=== PATIENT | male | born 1975 | race Caucasian/White ===

== ENCOUNTER 2020-02-08 18:02 | Inpatient (IN) | payer BC ==
[2020-02-08] MEDS ORDERED: SODIUM CHLORIDE 0.9% 1000 ML 1,000 ML IV ONE ×2 (18:51→18:55)
[2020-02-08] MEDS ORDERED: PIPERACIL/TAZOBACTA 4.5/NS 100 4.5 GM/100 ML VIAL IV ONE (18:54)
--- NOTE | 2020-02-08 18:55 | Emergency Department Report ---
HPI - General Chief Complaint: Weakness Time Seen by Provider: 02/08/20 18:34 - HPI HPI: Room 2 The patient is a 44-year-old male present with a chief complaint of cough and shortness of breath. Patient states his symptoms began 1 week ago with chills cough occasionally productive of clear sputum and shortness of breath. Patient denies rhinorrhea. The patient went to an urgent care facility where is diagnosed with a sinus infection. Patient states his rapid flu was negative. Patient was given prescription for amoxicillin, prednisone fluticasone and cough medication. Patient symptoms did not improve. Lately the patient has had a decreased appetite. Patient continues to complain of shortness of breath ED Past Medical Hx - Past Medical History Previous Medical History?: No - Surgical History Past Surgical History?: No - Family History Family history: no significant - Social History Smoking Status: Unknown if ever smoked Substance Use Type: None (Denies illicit drug use) ED Review of Systems ROS: Stated complaint: FLU NEG ON TUE/STILL FLU SYM Other details as noted in HPI Comment: Unobtainable due to pts medical conditions Constitutional: no symptoms reported Eyes: denies: eye pain ENT: denies: other (No rhinorrhea) Respiratory: denies: shortness of breath Gastrointestinal: denies: abdominal pain Genitourinary: denies: dysuria Neurological: denies: headache Physical Exam - Physical Exam Vital Signs: Vital Signs 02/08/20 02/08/20 18:21 18:25 Temperature 99.4 F 99.4 F Pulse Rate 121 H 116 H Respiratory 20 20 Rate Blood Pressure 109/73 109/73 O2 Sat by Pulse 92 89 Oximetry Physical Exam: GENERAL: The patient is well-developed well-nourished male lying on stretcher appearing lethargic. [] HEENT: Normocephalic. Atraumatic. Extraocular motions are intact. Patient has moist mucous membranes. NECK: Supple. Trachea midline CHEST/LUNGS: Occasional rhonchi. There is no respiratory distress noted. HEART/CARDIOVASCULAR: Regular. There is tachycardia. There is no gallop rub or murmur. ABDOMEN: Abdomen is soft, nontender. Patient has normal bowel sounds. There is no abdominal distention. SKIN: There is no rash. There is no edema. There is no diaphoresis. NEURO: The patient is awake, alert, and oriented. The patient is cooperative. The patient has normal speech MUSCULOSKELETAL: There is no evidence of acute injury. ED Course Vital Signs 02/08/20 02/08/20 18:21 18:25 Temperature 99.4 F 99.4 F Pulse Rate 121 H 116 H Respiratory 20 20 Rate Blood Pressure 109/73 109/73 O2 Sat by Pulse 92 89 Oximetry ED Medical Decision Making - Lab Data Result diagrams: 02/08/20 18:49 02/08/20 18:49 Laboratory Tests 02/08/20 02/08/20 02/08/20 18:49 18:49 18:49 WBC 10.4 RBC 4.69 Hgb 14.3 Hct 42.3 MCV 90 MCH 30 MCHC 34 RDW 12.7 L Plt Count 261 Lymph % (Auto) 6.1 L [place] % (Auto) 4.8 Eos % (Auto) 0.0 Baso % (Auto) 0.4 Lymph # 0.6 L [place] # 0.5 Eos # 0.0 Baso # 0.0 Seg Neutrophils % 88.7 H Seg Neutrophils # 9.3 H ABG pH ABG pCO2 ABG pO2 ABG HCO3 ABG O2 Saturation ABG O2 Content ABG Base Excess ABG Hemoglobin ABG Carboxyhemoglobin ABG Methemoglobin Oxyhemoglobin FiO2 Sodium 130 L Potassium 3.6 Chloride 93.9 L Carbon Dioxide 23 Anion Gap 17 BUN 13 Creatinine 0.7 L Estimated GFR > 60 BUN/Creatinine Ratio 19 Glucose 133 H Lactic Acid 1.10 Calcium 8.2 L Total Bilirubin 0.60 AST 39 ALT 49 Alkaline Phosphatase 72 Total Protein 7.2 Albumin 3.8 L Albumin/Globulin Ratio 1.1 02/08/20 19:44 WBC RBC Hgb Hct MCV MCH MCHC RDW Plt Count Lymph % (Auto) [place] % (Auto) Eos % (Auto) Baso % (Auto) Lymph # [place] # Eos # Baso # Seg Neutrophils % Seg Neutrophils # ABG pH 7.470 H ABG pCO2 32.3 ABG pO2 52.7 L ABG HCO3 23.0 ABG O2 Saturation 90.1 L ABG O2 Content 18.6 ABG Base Excess 0.2 ABG Hemoglobin 15.0 ABG Carboxyhemoglobin 1.5 ABG Methemoglobin 0.7 Oxyhemoglobin 88.1 L FiO2 21 Sodium Potassium Chloride Carbon Dioxide Anion Gap BUN Creatinine Estimated GFR BUN/Creatinine Ratio Glucose Lactic Acid Calcium Total Bilirubin AST ALT Alkaline Phosphatase Total Protein Albumin Albumin/Globulin Ratio Laboratory Tests 02/08/20 02/08/20 02/08/20 18:49 18:49 18:49 WBC 10.4 RBC 4.69 Hgb 14.3 Hct 42.3 MCV 90 MCH 30 MCHC 34 RDW 12.7 L Plt Count 261 Lymph % (Auto) 6.1 L [place] % (Auto) 4.8 Eos % (Auto) 0.0 Baso % (Auto) 0.4 Lymph # 0.6 L [place] # 0.5 Eos # 0.0 Baso # 0.0 Seg Neutrophils % 88.7 H Seg Neutrophils # 9.3 H ABG pH ABG pCO2 ABG pO2 ABG HCO3 ABG O2 Saturation ABG O2 Content ABG Base Excess ABG Hemoglobin ABG Carboxyhemoglobin ABG Methemoglobin Oxyhemoglobin FiO2 Sodium 130 L Potassium 3.6 Chloride 93.9 L Carbon Dioxide 23 Anion Gap 17 BUN 13 Creatinine 0.7 L Estimated GFR > 60 BUN/Creatinine Ratio 19 Glucose 133 H Lactic Acid 1.10 Calcium 8.2 L Total Bilirubin 0.60 AST 39 ALT 49 Alkaline Phosphatase 72 Total Protein 7.2 Albumin 3.8 L Albumin/Globulin Ratio 1.1 Influenza A (Rapid) Influenza B (Rapid) 02/08/20 02/08/20 19:44 Unknown WBC RBC Hgb Hct MCV MCH MCHC RDW Plt Count Lymph % (Auto) [place] % (Auto) Eos % (Auto) Baso % (Auto) Lymph # [place] # Eos # Baso # Seg Neutrophils % Seg Neutrophils # ABG pH 7.470 H ABG pCO2 32.3 ABG pO2 52.7 L ABG HCO3 23.0 ABG O2 Saturation 90.1 L ABG O2 Content 18.6 ABG Base Excess 0.2 ABG Hemoglobin 15.0 ABG Carboxyhemoglobin 1.5 ABG Methemoglobin 0.7 Oxyhemoglobin 88.1 L FiO2 21 Sodium Potassium Chloride Carbon Dioxide Anion Gap BUN Creatinine Estimated GFR BUN/Creatinine Ratio Glucose Lactic Acid Calcium Total Bilirubin AST ALT Alkaline Phosphatase Total Protein Albumin Albumin/Globulin Ratio Influenza A (Rapid) Negative Influenza B (Rapid) Negative - Radiology Data Radiology results: report reviewed (Chest x-ray), image reviewed (Chest x-ray) interpreted by me: Chest [id number] infiltrates. No pneumothorax [facility] [address] [place] [address] XRay Report Signed Patient: CROW LEZAMA MR#: [id number] : 1975 Acct:[id number] Age/Sex: 44 / M ADM Date: 02/08/20 Loc: ED Attending Dr: Ordering Physician: LESVIA GIRON MD Date of Service: 02/08/20 Pro cedure(s): XR chest 1V ap Accession Number(s): [id number] cc: LESVIA GIRON MD Fluoro Time In Minutes: CHEST 1 VIEW INDICATION: cough. COMPARISON: None. FINDINGS: Support devices: None. Heart: Within normal limits. Lungs/Pleura: Lung volumes are diminished. Patchy infiltrates are seen at the mid/lower zones. Additional findings: None. IMPRESSION: Diminished lung volumes with bilateral pneumonia. Signer Name: Darius Jin MD Signed: 02/08/2020 7:01 PM Workstation Name: [id number] Transcribed By: ES Dictated By: Darius Jin MD Electronically Authenticated By: Darius Jin MD Signed Date/Time: 02/08/201900 DD/ 99 TD/TT: - Differential Diagnosis Pneumonia, influenza, coronavirus infection Critical care attestation.: If time is entered above; I have spent that time in minutes in the direct care of this critically ill patient, excluding procedure time. ED Disposition Clinical Impression: Pneumonia, Hypoxia Disposition: DC-09 OP ADMIT IP TO THIS HOSP Is pt being admited?: Yes Does the pt Need Aspirin: No Condition: Serious Instructions: Bacterial Pneumonia (ED) Time of Disposition: 20:09 (Hospitalist paged (Dr Santiago))
--- NOTE | 2020-02-08 19:06 | XRay Report ---
CHEST 1 VIEW INDICATION: cough. COMPARISON: None. FINDINGS: Support devices: None. Heart: Within normal limits. Lungs/Pleura: Lung volumes are diminished. Patchy infiltrates are seen at the mid/lower zones. Additional findings: None. IMPRESSION: Diminished lung volumes with bilateral pneumonia. Signer Name: Darius Jin MD Signed: 02/08/2020 7:01 PM Workstation Name: [id number]
[2020-02-08 19:19] LABS: Basophils % (Auto) 0.4 % (0.0-1.8); Hematocrit 42.3 % (35.5-45.6); Hemoglobin 14.3 gm/dl (11.8-15.2); Lymphocytes # (Auto) 0.6 K/mm3 (1.2-5.4); Lymphocytes % (Auto) 6.1 % (13.4-35.0); Mean Corpuscular HGB Conc 34 % (32-34); Mean Corpuscular Volume 90 fl (84-94); Monocytes # (Auto) 0.5 K/mm3 (0.0-0.8); Monocytes % (Auto) 4.8 % (0.0-7.3); Platelet Count 261 K/mm3 (140-440); Red Blood Count 4.69 M/mm3 (3.65-5.03); Red Cell Distribution Width 12.7 % (13.2-15.2)
[2020-02-08 19:34] LABS: Alanine Aminotransferase 49 units/L (7-56); Albumin 3.8 g/dL (3.9-5); BUN/Creatinine Ratio 19; Blood Urea Nitrogen 13 mg/dL (9-20); Calcium 8.2 mg/dL (8.4-10.2); Hemolysis Index 4
[2020-02-08 19:56] LABS: ABG Base Excess 0.2 mmol/L (-2.0-3.0); ABG Methemoglobin 0.7 % (0.0-1.5); ABG Oxygen Saturation 90.1 % (95.0-99.0); ABG PCO2 32.3 mm Hg; ABG PH 7.47 pH Units (7.350-7.450); ABG PO2 52.7 mm Hg (80.0-90.0)
[2020-02-08] MEDS ORDERED: ONDANSETRON 4 MG/2 ML INJ IV ONE (20:36)
[2020-02-08] MEDS ORDERED: FAMOTIDINE 20 MG/2 ML INJ IV ONE (20:36)
[2020-02-08] MEDS ORDERED: fentaNYL 100 MCG/2 ML INJ IV ONE (20:36)
[2020-02-08] MEDS ORDERED: ONDANSETRON 4 MG/2 ML INJ IV PRN (23:06)
--- NOTE | 2020-02-08 23:06 | History and Physical Report ---
History of Present Illness History of present illness: 44-year-old male with no medical problem comes emergency room with complaints of shortness of breath, cough, chills, fever. He was seen in the urgent care and was diagnosed with sinusitis, his symptoms continue without any improvement, he returned to the urgent care and was sent to the diagnosed with bronchitis. Patient was given amoxicillin, steroids and fluticasone with cough medications 2 days ago, symptoms have not improved so he came to the emergency room for further evaluation. Patient will be admitted for pneumonia Review Of Systems: Constitutional: no weight loss Ears, eyes, nose, mouth and throat: no nasal congestion, no nasal discharge, no sinus pressure, blurry vision, diplopia Neck: No neck pain or rigidity. Cardiovascular: No palpitations, chest pain Respiratory: + shortness of breath, cough Gastrointestinal: No hematochezia Genitourinary : no dysuria, frequency Musculoskeletal: no muscle ache , joint pain Integumentary: no rash, no pruritis Neurological: no parathesias, focal weakness Endocrine: no cold or heat intolerance, no polyuria or polydipsia Hematologic/Lymphatic: no easy bruising, no easy bleeding, no gland swelling Allergic/Immunologic: no urticaria, no angioedema. PAST MEDICAL HISTORY: None PAST SURGICAL HISTORY: None SOCIAL HISTORY: Denies alcohol, tobacco, drugs FAMILY HISTORY: Hypertension Medications and Allergies Allergies Allergy/AdvReac Type Severity Reaction Status Date / Time No Known Allergies Allergy Verified 02/08/20 18:09 Home Medications Medication Instructions Recorded Confirmed Last Taken Type No Known Home Medications [No 02/09/20 02/09/20 Unknown History Reported Home Medications] Exam - Physical Exam Narrative exam: Gen. appearance: Patient lying in bed, no apparent distress HEENT: Normocephalic, atraumatic, pupils equally round and reactive to light, extraocular movement intact, and no sclericterus,. No JVD or thyromegaly or nodule,neck supple, no carotid bruit ,mucous membranes moist, no exudate or erythema Heart: S1, S2, regular rate and rhythm Lungs: Crackles bilaterally, breathing comfortable Abdomen: Positive bowel sounds, nontender, nondistended, no organomegaly Extremity: no edema, cyanosis, clubbing Skin: No rash, nodules, warm, dry Neuro: Cranial nerves II to XII intact speech is fluent, moves extremities, sensory intact - Constitutional Vitals: Temp Pulse Resp BP Pulse Ox 99.4 F 104 H 34 H 115/68 95 02/08/20 18:25 02/08/20 19:15 02/08/20 19:15 02/08/20 19:15 02/08/20 19:15 Results - Labs CBC & Chem 7: 02/12/20 05:00 02/12/20 05:00 Labs: Abnormal lab results 02/08/20 02/08/20 02/08/20 Range/Units 18:49 18:49 19:44 RDW 12.7 L (13.2-15.2) % Lymph % (Auto) 6.1 L (13.4-35.0) % Lymph # 0.6 L (1.2-5.4) K/mm3 Seg Neutrophils % 88.7 H (40.0-70.0) % Seg Neutrophils # 9.3 H (1.8-7.7) K/mm3 ABG pH 7.470 H (7.350-7.450) pH Units ABG pO2 52.7 L (80.0-90.0) mm Hg ABG O2 Saturation 90.1 L (95.0-99.0) % Oxyhemoglobin 88.1 L (95.0-99.0) % Sodium 130 L (137-145) mmol/L Chloride 93.9 L (98-107) mmol/L Creatinine 0.7 L (0.8-1.5) mg/dL Glucose 133 H (75-100) mg/dL Calcium 8.2 L (8.4-10.2) mg/dL Albumin 3.8 L (3.9-5) g/dL - Imaging and Cardiology Chest x-ray: report reviewed Assessment and Plan Assessment Community-acquired pneumonia Start IV Rocephin, azithromycin, follow cultures Consult ID, Department of Health notified, droplet precaution DVT prophylaxis
[2020-02-08] MEDS: ACETAMINOPHEN 325 MG TAB PO PRN (23:51)
[2020-02-08] MEDS: oxyCODONE /ACETAMINOPHEN 5-325MG TAB PO PRN (23:52)
[2020-02-08] MEDS ORDERED: oxyCODONE /ACETAMINOPHEN 5-325MG TAB ONE (23:59)
[2020-02-09] MEDS ORDERED: ACETAMINOPHEN 325 MG TAB ONE
[2020-02-09] MEDS: ACETAMINOPHEN 325 MG TAB PO PRN ×2 (05:03→17:13)
[2020-02-09 05:08] LABS: Basophils % (Auto) 0.1 % (0.0-1.8); Hematocrit 35.9 % (35.5-45.6); Hemoglobin 12.3 gm/dl (11.8-15.2); Lymphocytes % (Auto) 9.7 % (13.4-35.0); Mean Corpuscular HGB Conc 34 % (32-34); Mean Corpuscular Volume 90 fl (84-94); Monocytes # (Auto) 0.5 K/mm3 (0.0-0.8); Monocytes % (Auto) 4.7 % (0.0-7.3); Platelet Count 237 K/mm3 (140-440); Red Blood Count 3.98 M/mm3 (3.65-5.03); Red Cell Distribution Width 12.6 % (13.2-15.2)
[2020-02-09 05:34] LABS: BUN/Creatinine Ratio 13; Blood Urea Nitrogen 10 mg/dL (9-20); Calcium 7.5 mg/dL (8.4-10.2); Hemolysis Index 2
[2020-02-09] MEDS: oxyCODONE /ACETAMINOPHEN 5-325MG TAB PO PRN (06:14)
[2020-02-09] MEDS: cefTRIAXone/NS 1 GM/50 ML 1 GM/50 ML BAG IV SCH (09:50)
[2020-02-09] MEDS: ENOXAPARIN 40 MG/0.4 ML INJ SUB-Q SCH (09:51)
[2020-02-09] MEDS ORDERED: ENOXAPARIN 30 MG/0.3 ML INJ SUB-Q SCH (10:00)
[2020-02-09] MEDS: AZITHROMYCIN 500 MG in SODIUM CHLORIDE 0.9% 250ML 250 ML IV SCH (11:00)
--- NOTE | 2020-02-09 15:44 | Progress Note ---
Assessment and Plan Assessment and plan: Bilateral pneumonia Fever,cough,shortness of breath R/o COVID 19 Started IV Rocephin, azithromycin, follow cultures Consultd ID, Department of Health notified, Cont droplet precaution DVT prophylaxis Acute resp failure On supplemental oxygen may consult Pulm Hyponatremia History Interval history: Fever Cough Shortness of breath Hospitalist Physical - Physical exam Narrative exam: GEN: Not in acute distress, lying in bed, mask on HEENT: Normocephalic, atraumatic, Neck: supple, No JVD Lungs: Bilateral crackles, heart;S1 and S2 reg, no murmurs, rubs or gallop Abd:soft, non tender, non distended, normal bowel sounds Ext: No edema, no clubbing, no cyanosis, Neuro: Awake,alert,oriented x 3, no focal neuro signs - Constitutional Vitals: Temp Pulse Resp BP Pulse Ox 98.4 F 94 H 18 106/62 93 02/09/20 11:22 02/09/20 11:09 02/09/20 11:09 02/09/20 11:08 02/09/20 11:09 Results - Labs CBC & Chem 7: 02/09/20 04:06 02/09/20 04:06 Labs: Laboratory Last Values WBC 9.9 K/mm3 (4.5-11.0) 02/09/20 04:06 RBC 3.98 M/mm3 (3.65-5.03) 02/09/20 04:06 Hgb 12.3 gm/dl (11.8-15.2) 02/09/20 04:06 Hct 35.9 % (35.5-45.6) D 02/09/20 04:06 MCV 90 fl (84-94) 02/09/20 04:06 MCH 31 pg (28-32) 02/09/20 04:06 MCHC 34 % (32-34) 02/09/20 04:06 RDW 12.6 % (13.2-15.2) L 02/09/20 04:06 Plt Count 237 K/mm3 (140-440) 02/09/20 04:06 Lymph % (Auto) 9.7 % (13.4-35.0) L 02/09/20 04:06 [place] % (Auto) 4.7 % (0.0-7.3) 02/09/20 04:06 Eos % (Auto) 0.0 % (0.0-4.3) 02/09/20 04:06 Baso % (Auto) 0.1 % (0.0-1.8) 02/09/20 04:06 Lymph # 1.0 K/mm3 (1.2-5.4) L 02/09/20 04:06 [place] # 0.5 K/mm3 (0.0-0.8) 02/09/20 04:06 Eos # 0.0 K/mm3 (0.0-0.4) 02/09/20 04:06 Baso # 0.0 K/mm3 (0.0-0.1) 02/09/20 04:06 Seg Neutrophils % 85.5 % (40.0-70.0) H 02/09/20 04:06 Seg Neutrophils # 8.5 K/mm3 (1.8-7.7) H 02/09/20 04:06 ABG pH 7.470 pH Units (7.350-7.450) H 02/08/20 19:44 ABG pCO2 32.3 mm Hg 02/08/20 19:44 ABG pO2 52.7 mm Hg (80.0-90.0) L 02/08/20 19:44 ABG HCO3 23.0 mmol/L (20.0-26.0) 02/08/20 19:44 ABG O2 Saturation 90.1 % (95.0-99.0) L 02/08/20 19:44 ABG O2 Content 18.6 (0.0-44) 02/08/20 19:44 ABG Base Excess 0.2 mmol/L (-2.0-3.0) 02/08/20 19:44 ABG Hemoglobin 15.0 gm/dl (14.0-18.0) 02/08/20 19:44 ABG Carboxyhemoglobin 1.5 % (0.0-5.0) 02/08/20 19:44 ABG Methemoglobin 0.7 % (0.0-1.5) 02/08/20 19:44 Oxyhemoglobin 88.1 % (95.0-99.0) L 02/08/20 19:44 FiO2 21 % 02/08/20 19:44 Sodium 134 mmol/L (137-145) L 02/09/20 04:06 Potassium 3.6 mmol/L (3.6-5.0) 02/09/20 04:06 Chloride 98.9 mmol/L (98-107) 02/09/20 04:06 Carbon Dioxide 21 mmol/L (22-30) L 02/09/20 04:06 Anion Gap 18 mmol/L 02/09/20 04:06 BUN 10 mg/dL (9-20) 02/09/20 04:06 Creatinine 0.8 mg/dL (0.8-1.5) 02/09/20 04:06 Estimated GFR > 60 ml/min 02/09/20 04:06 BUN/Creatinine Ratio 13 % 02/09/20 04:06 Glucose 151 mg/dL (75-100) H 02/09/20 04:06 Lactic Acid 1.10 mmol/L (0.7-2.0) 02/08/20 18:49 Calcium 7.5 mg/dL (8.4-10.2) L 02/09/20 04:06 Total Bilirubin 0.60 mg/dL (0.1-1.2) 02/08/20 18:49 AST 39 units/L (5-40) 02/08/20 18:49 ALT 49 units/L (7-56) 02/08/20 18:49 Alkaline Phosphatase 72 units/L (35-129) 02/08/20 18:49 Total Protein 7.2 g/dL (6.3-8.2) 02/08/20 18:49 Albumin 3.8 g/dL (3.9-5) L 02/08/20 18:49 Albumin/Globulin Ratio 1.1 % 02/08/20 18:49 Influenza A (Rapid) Negative (Negative) 02/08/20 Unknown Influenza B (Rapid) Negative (Negative) 02/08/20 Unknown Lee/IV: Voiding Method Toilet IV Catheter Type [Left INT / Saline Lock Antecubital] Active Medications - Current Medications Current Medications: Generic Name Dose Route Start Last Admin Trade Name Freq PRN Reason Stop Dose Admin Acetaminophen 650 mg 02/08/20 23:06 02/09/20 05:03 Tylenol PO 650 mg Q4H PRN Administration Pain MILD(1-3)/Fever >100.5/ULLOA Enoxaparin Sodium 40 mg 02/09/20 10:00 02/09/20 09:51 Enoxaparin SUB-Q 40 mg QDAY@1000 YAMILA Administration Ceftriaxone Sodium 1 gm in 50 mls @ 100 mls/hr 02/09/20 10:00 02/09/20 09:50 Rocephin/Ns 1 Gm/50 Ml IV 100 mls/hr Q24HR YAMILA Administration Protocol Azithromycin 500 mg/ Sodium 250 mls @ 250 mls/hr 02/09/20 10:00 02/09/20 11:00 Chloride IV 250 mls/hr Q24HR YAMILA Administration Protocol Sodium Chloride 1,000 mls @ 100 mls/hr 02/09/20 06:00 Nacl 0.9% 1000 Ml IV DIRECT YAMILA Ondansetron HCl 4 mg 02/08/20 23:06 Zofran IV Q8H PRN Nausea And Vomiting Oxycodone/Acetaminophen 1 tab 02/08/20 23:06 02/09/20 06:14 Percocet 5/325 PO 1 tab Q6H PRN Administration Pain, Moderate (4-6) Sodium Chloride 10 ml 02/09/20 10:00 02/09/20 11:00 Sodium Chloride Flush Syringe 10 Ml IV 10 ml BID YAMILA Administration Sodium Chloride 10 ml 02/08/20 23:06 Sodium Chloride Flush Syringe 10 Ml IV PRN PRN LINE FLUSH
[2020-02-09] MEDS: SODIUM CHLORIDE 0.9% 1000 ML 1,000 ML IV SCH (17:13)
[2020-02-09] MEDS ORDERED: ALBUTEROL 8.5 GM INHALATION IH PRN (18:52)
[2020-02-10] MEDS: ACETAMINOPHEN 325 MG TAB PO PRN (00:29)
[2020-02-10] MEDS: SODIUM CHLORIDE 0.9% 1000 ML 1,000 ML IV SCH ×3 (02:58→21:02)
[2020-02-10] MEDS: oxyCODONE /ACETAMINOPHEN 5-325MG TAB PO PRN ×3 (03:02→21:00)
[2020-02-10 06:39] LABS: BUN/Creatinine Ratio 18; Blood Urea Nitrogen 9 mg/dL (9-20); Calcium 7.6 mg/dL (8.4-10.2); Hemolysis Index 8
[2020-02-10 06:40] LABS: Hematocrit 36.4 % (35.5-45.6); Hemoglobin 12.5 gm/dl (11.8-15.2); Mean Corpuscular HGB Conc 34 % (32-34); Mean Corpuscular Volume 90 fl (84-94); Platelet Count 256 K/mm3 (140-440); Red Blood Count 4.07 M/mm3 (3.65-5.03); Red Cell Distribution Width 12.7 % (13.2-15.2)
[2020-02-10] MEDS: ENOXAPARIN 40 MG/0.4 ML INJ SUB-Q SCH (09:51)
[2020-02-10] MEDS: cefTRIAXone/NS 1 GM/50 ML 1 GM/50 ML BAG IV SCH (09:51)
[2020-02-10] MEDS: AZITHROMYCIN 500 MG in SODIUM CHLORIDE 0.9% 250ML 250 ML IV SCH (09:51)
--- NOTE | 2020-02-10 11:29 | Consultation ---
History of Present Illness - Reason for Consult Consult date: 02/10/20 - History of Present Illness 44-year-old male no past medical history admitted to the hospital with complaints of shortness of breath, cough, fever. He had been recently seen in urgent care and diagnosed with sinusitis, however his symptoms did not resolve. He then returned to the urgent care and was diagnosed with bronchitis and was given amoxicillin, steroids, cough suppressant on 02/08/2020. However despite this is symptoms did not resolve. He then presented to the hospital for admission. Febrile to 102.3 with a white count now of 14. He has a lymphopenia. Influenza is negative. Blood cultures are pending. He is currently receiving ceftriaxone and azithromycin. Imaging personally reviewed: Chest x-ray: Bilateral pneumonia Review of Systems: Bold if positive, otherwise negative General: fevers, chills, rigors HEENT: visual disturbance, diplopia, eye pain Respiratory: cough, sputum, hemoptysis, shortness of breath Cardiovascular: chest pain, syncope Gastrointestinal: nausea, vomiting, diarrhea, abdominal pain Genitourinary: dysuria, hematuria, flank pain Musculoskeletal: neck pain, back pain, joint pain, edema Neurologic: headaches, seizures Hematologic: easy bruising or bleeding Endocrine: night sweats, acute weight loss Skin: rash, jaundice, redness Psychiatric: suicidal, homicidal ideation Past History Past Medical History: No medical history Past Surgical History: No surgical history Social history: no significant social history Family history: hypertension Medications and Allergies Allergies Allergy/AdvReac Type Severity Reaction Status Date / Time No Known Allergies Allergy Verified 02/08/20 18:09 Home Medications Medication Instructions Recorded Confirmed Last Taken Type No Known Home Medications [No 02/09/20 02/09/20 Unknown History Reported Home Medications] Active Meds: Active Medications Acetaminophen (Tylenol) 650 mg PO Q4H PRN PRN Reason: Pain MILD(1-3)/Fever >100.5/ULLOA Last Admin: 02/10/20 00:29 Dose: 650 mg Documented by: Albuterol (Proair) 2 puff IH Q4HRT PRN PRN Reason: Shortness Of Breath Enoxaparin Sodium (Enoxaparin) 40 mg SUB-Q QDAY@1000 YAMILA Last Admin: 02/10/20 09:51 Dose: 40 mg Documented by: Ceftriaxone Sodium (Rocephin/Ns 1 Gm/50 Ml) 1 gm in 50 mls @ 100 mls/hr IV Q24HR YAMILA; Protocol Last Admin: 02/10/20 09:51 Dose: 100 mls/hr Documented by: Azithromycin 500 mg/ Sodium (Chloride) 250 mls @ 250 mls/hr IV Q24HR YAMILA; Protocol Last Admin: 02/10/20 09:51 Dose: 250 mls/hr Documented by: Sodium Chloride (Nacl 0.9% 1000 Ml) 1,000 mls @ 100 mls/hr IV DIRECT YAMILA Last Admin: 02/10/20 09:52 Dose: 100 mls/hr Documented by: Ondansetron HCl (Zofran) 4 mg IV Q8H PRN PRN Reason: Nausea And Vomiting Oxycodone/Acetaminophen (Percocet 5/325) 1 tab PO Q6H PRN PRN Reason: Pain, Moderate (4-6) Last Admin: 02/10/20 11:20 Dose: 1 tab Documented by: Sodium Chloride (Sodium Chloride Flush Syringe 10 Ml) 10 ml IV BID YAMILA Last Admin: 02/10/20 09:52 Dose: 10 ml Documented by: Sodium Chloride (Sodium Chloride Flush Syringe 10 Ml) 10 ml IV PRN PRN PRN Reason: LINE FLUSH Physical Examination - Physical Exam Narrative exam: Physical Exam: Constitutional: Alert, cooperative. No acute distress Head, Ears, Nose: Normocephalic, atraumatic. External ears, nose normal Eyes: Conjunctivae/corneas clear. No icterus. No ptosis. Neck: Supple, no meningeal signs Oral: dentition fair, no thrush Cardiovascular: S1, S2 normal. Respiratory: Bilateral rhonchi/wheezes GI: Soft, non-tender; bowel sounds normal. No peritoneal signs. Musculoskeletal: No pedal edema, no cyanosis. Skin: No rash or abscess Hem/Lymphatic: No palpable cervical or supraclavicular nodes. No lymphangitis Psych: Mood ok. Affect normal Neurological: Awake, alert, oriented. No gross abnormality - Constitutional Vitals: Vital Signs Temp Pulse Resp BP Pulse Ox 98.8 F 81 18 106/63 96 02/10/20 05:52 02/10/20 05:52 02/10/20 05:52 02/10/20 05:52 02/10/20 05:52 Temperature -Last 24 Hours Temperature 98.8 F Temperature 99.1 F Temperature 102.3 F Temperature 98.8 F Temperature 102.6 F Temperature 98.4 F Results - Labs CBC & Chem 7: 02/10/20 Unknown 02/10/20 Unknown Labs: Abnormal lab results 02/10/20 02/10/20 Range/Units Unknown Unknown WBC 13.7 H (4.5-11.0) K/mm3 RDW 12.7 L (13.2-15.2) % Sodium 134 L (137-145) mmol/L Carbon Dioxide 21 L (22-30) mmol/L Creatinine 0.5 L (0.8-1.5) mg/dL Glucose 123 H (75-100) mg/dL Calcium 7.6 L (8.4-10.2) mg/dL Assessment and Plan Cultures: Blood culture 02/08/2020 Flu negative A/P: 44 yo M no PMHx admitted to the hospital with a bilateral pneumonia and being ruled out for novel coronavirus #COVID19 rule out: Pending results of [facility]. Appreciate primary team's filling out information to expediate obtaining testing. Given his symptoms I am concerned for the coronavirus. However I will continue ceftriaxone azithromycin in the meantime until testing becomes available. Continue droplet and contact precautions. #Bilateral pneumonia: Treatment as above. Recs: -Obtain procalcitonin for morning lab -Continue droplet and contact precautions -Continue azithromycin and ceftriaxone, however increase ceftriaxone to 2 g daily Thank you for the consult, will continue to follow. Hiro Nettles MD [facility] M: [phone] O: [phone] F: [phone]
--- NOTE | 2020-02-10 12:51 | Progress Note ---
Assessment and Plan Assessment and plan: Bilateral pneumonia Fever,cough,shortness of breath R/o COVID 19 Started IV Rocephin, azithromycin, follow cultures Consultd ID, Department of Health notified, Cont droplet precaution DVT prophylaxis Acute resp failure On supplemental oxygen may consult Pulm Hyponatremia 02/09 Still having cough, fever. Swab specimen sent 02/08. awaiting result History Interval history: Fever Cough Shortness of breath Hospitalist Physical - Physical exam Narrative exam: GEN: Not in acute distress, lying in bed, mask on HEENT: Normocephalic, atraumatic, Neck: supple, No JVD Lungs: Bilateral crackles, heart;S1 and S2 reg, no murmurs, rubs or gallop Abd:soft, non tender, non distended, normal bowel sounds Ext: No edema, no clubbing, no cyanosis, Neuro: Awake,alert,oriented x 3, no focal neuro signs - Constitutional Vitals: Temp Pulse Resp BP Pulse Ox 99.1 F 97 H 22 106/63 97 02/10/20 11:37 02/10/20 11:37 02/10/20 11:37 02/10/20 11:37 02/10/20 11:37 Results - Labs CBC & Chem 7: 02/10/20 Unknown 02/10/20 Unknown Labs: Laboratory Last Values WBC 13.7 K/mm3 (4.5-11.0) H 02/10/20 Unknown RBC 4.07 M/mm3 (3.65-5.03) 02/10/20 Unknown Hgb 12.5 gm/dl (11.8-15.2) 02/10/20 Unknown Hct 36.4 % (35.5-45.6) 02/10/20 Unknown MCV 90 fl (84-94) 02/10/20 Unknown MCH 31 pg (28-32) 02/10/20 Unknown MCHC 34 % (32-34) 02/10/20 Unknown RDW 12.7 % (13.2-15.2) L 02/10/20 Unknown Plt Count 256 K/mm3 (140-440) 02/10/20 Unknown Lymph % (Auto) 9.7 % (13.4-35.0) L 02/09/20 04:06 [place] % (Auto) 4.7 % (0.0-7.3) 02/09/20 04:06 Eos % (Auto) 0.0 % (0.0-4.3) 02/09/20 04:06 Baso % (Auto) 0.1 % (0.0-1.8) 02/09/20 04:06 Lymph # 1.0 K/mm3 (1.2-5.4) L 02/09/20 04:06 [place] # 0.5 K/mm3 (0.0-0.8) 02/09/20 04:06 Eos # 0.0 K/mm3 (0.0-0.4) 02/09/20 04:06 Baso # 0.0 K/mm3 (0.0-0.1) 02/09/20 04:06 Seg Neutrophils % 85.5 % (40.0-70.0) H 02/09/20 04:06 Seg Neutrophils # 8.5 K/mm3 (1.8-7.7) H 02/09/20 04:06 ABG pH 7.470 pH Units (7.350-7.450) H 02/08/20 19:44 ABG pCO2 32.3 mm Hg 02/08/20 19:44 ABG pO2 52.7 mm Hg (80.0-90.0) L 02/08/20 19:44 ABG HCO3 23.0 mmol/L (20.0-26.0) 02/08/20 19:44 ABG O2 Saturation 90.1 % (95.0-99.0) L 02/08/20 19:44 ABG O2 Content 18.6 (0.0-44) 02/08/20 19:44 ABG Base Excess 0.2 mmol/L (-2.0-3.0) 02/08/20 19:44 ABG Hemoglobin 15.0 gm/dl (14.0-18.0) 02/08/20 19:44 ABG Carboxyhemoglobin 1.5 % (0.0-5.0) 02/08/20 19:44 ABG Methemoglobin 0.7 % (0.0-1.5) 02/08/20 19:44 Oxyhemoglobin 88.1 % (95.0-99.0) L 02/08/20 19:44 FiO2 21 % 02/08/20 19:44 Sodium 134 mmol/L (137-145) L 02/10/20 Unknown Potassium 3.7 mmol/L (3.6-5.0) 02/10/20 Unknown Chloride 100.4 mmol/L (98-107) 02/10/20 Unknown Carbon Dioxide 21 mmol/L (22-30) L 02/10/20 Unknown Anion Gap 16 mmol/L 02/10/20 Unknown BUN 9 mg/dL (9-20) 02/10/20 Unknown Creatinine 0.5 mg/dL (0.8-1.5) L 02/10/20 Unknown Estimated GFR > 60 ml/min 02/10/20 Unknown BUN/Creatinine Ratio 18 % 02/10/20 Unknown Glucose 123 mg/dL (75-100) H 02/10/20 Unknown Lactic Acid 1.10 mmol/L (0.7-2.0) 02/08/20 18:49 Calcium 7.6 mg/dL (8.4-10.2) L 02/10/20 Unknown Total Bilirubin 0.60 mg/dL (0.1-1.2) 02/08/20 18:49 AST 39 units/L (5-40) 02/08/20 18:49 ALT 49 units/L (7-56) 02/08/20 18:49 Alkaline Phosphatase 72 units/L (35-129) 02/08/20 18:49 Total Protein 7.2 g/dL (6.3-8.2) 02/08/20 18:49 Albumin 3.8 g/dL (3.9-5) L 02/08/20 18:49 Albumin/Globulin Ratio 1.1 % 02/08/20 18:49 Influenza A (Rapid) Negative (Negative) 02/08/20 Unknown Influenza B (Rapid) Negative (Negative) 02/08/20 Unknown Lee/IV: Voiding Method Urinal IV Catheter Type [Right INT / Saline Lock Forearm] IV Catheter Type [Left INT / Saline Lock Antecubital] Active Medications - Current Medications Current Medications: Generic Name Dose Route Start Last Admin Trade Name Freq PRN Reason Stop Dose Admin Acetaminophen 650 mg 02/08/20 23:06 02/10/20 00:29 Tylenol PO 650 mg Q4H PRN Administration Pain MILD(1-3)/Fever >100.5/ULLOA Albuterol 2 puff 02/09/20 18:52 Proair IH Q4HRT PRN Shortness Of Breath Diphenhydramine HCl 25 mg 02/10/20 12:49 Benadryl PO Q8H PRN Itching Diphenhydramine HCl 25 mg 02/10/20 12:50 Benadryl IV Q6H PRN Itching Enoxaparin Sodium 40 mg 02/09/20 10:00 02/10/20 09:51 Enoxaparin SUB-Q 40 mg QDAY@1000 YAMILA Administration Azithromycin 500 mg/ Sodium 250 mls @ 250 mls/hr 02/09/20 10:00 02/10/20 09:51 Chloride IV 250 mls/hr Q24HR YAMILA Administration Protocol Sodium Chloride 1,000 mls @ 100 mls/hr 02/09/20 06:00 02/10/20 09:52 Nacl 0.9% 1000 Ml IV 100 mls/hr DIRECT YAMILA Administration Ceftriaxone Sodium 2 gm in 100 mls @ 200 mls/hr 02/11/20 10:00 Rocephin/Ns 2 Gm/100 Ml IV Q24HR YAMILA Protocol Ondansetron HCl 4 mg 02/08/20 23:06 Zofran IV Q8H PRN Nausea And Vomiting Oxycodone/Acetaminophen 1 tab 02/08/20 23:06 02/10/20 11:20 Percocet 5/325 PO 1 tab Q6H PRN Administration Pain, Moderate (4-6) Sodium Chloride 10 ml 02/09/20 10:00 02/10/20 09:52 Sodium Chloride Flush Syringe 10 Ml IV 10 ml BID YAMILA Administration Sodium Chloride 10 ml 02/08/20 23:06 Sodium Chloride Flush Syringe 10 Ml IV PRN PRN LINE FLUSH
[2020-02-10] MEDS: diphenhydrAMINE 50 MG/ML VIAL IV PRN (13:05)
--- NOTE | 2020-02-10 15:28 | Consultation ---
History of Present Illness Consult date: 02/10/20 Requesting physician: DOMI DECKER Reason for consult: pneumonia (R/O COVID-19) History of present illness: PULMONARY/CCM CONSULT NOTE (Full dictation # [id number]) Please see dictated notes for full details Past History Past Medical History: No medical history Past Surgical History: No surgical history Social history: no significant social history Family history: hypertension Medications and Allergies Allergies Allergy/AdvReac Type Severity Reaction Status Date / Time No Known Allergies Allergy Verified 02/08/20 18:09 Home Medications Medication Instructions Recorded Confirmed Last Taken Type No Known Home Medications [No 02/09/20 02/09/20 Unknown History Reported Home Medications] Active Meds: Active Medications Acetaminophen (Tylenol) 650 mg PO Q4H PRN PRN Reason: Pain MILD(1-3)/Fever >100.5/ULLOA Last Admin: 02/10/20 00:29 Dose: 650 mg Documented by: Albuterol (Proair) 2 puff IH Q4HRT PRN PRN Reason: Shortness Of Breath Diphenhydramine HCl (Benadryl) 25 mg PO Q8H PRN PRN Reason: Itching Diphenhydramine HCl (Benadryl) 25 mg IV Q6H PRN PRN Reason: Itching Last Admin: 02/10/20 13:05 Dose: 25 mg Documented by: Enoxaparin Sodium (Enoxaparin) 40 mg SUB-Q QDAY@1000 YAMILA Last Admin: 02/10/20 09:51 Dose: 40 mg Documented by: Azithromycin 500 mg/ Sodium (Chloride) 250 mls @ 250 mls/hr IV Q24HR YAMILA; Protocol Last Admin: 02/10/20 09:51 Dose: 250 mls/hr Documented by: Sodium Chloride (Nacl 0.9% 1000 Ml) 1,000 mls @ 100 mls/hr IV DIRECT YAMILA Last Admin: 02/10/20 09:52 Dose: 100 mls/hr Documented by: Ceftriaxone Sodium (Rocephin/Ns 2 Gm/100 Ml) 2 gm in 100 mls @ 200 mls/hr IV Q24HR YAMILA; Protocol Ondansetron HCl (Zofran) 4 mg IV Q8H PRN PRN Reason: Nausea And Vomiting Oxycodone/Acetaminophen (Percocet 5/325) 1 tab PO Q6H PRN PRN Reason: Pain, Moderate (4-6) Last Admin: 02/10/20 11:20 Dose: 1 tab Documented by: Sodium Chloride (Sodium Chloride Flush Syringe 10 Ml) 10 ml IV BID YAMILA Last Admin: 02/10/20 09:52 Dose: 10 ml Documented by: Sodium Chloride (Sodium Chloride Flush Syringe 10 Ml) 10 ml IV PRN PRN PRN Reason: LINE FLUSH Physical Examination Vital signs: Vital Signs Pulse Resp BP Pulse Ox 113 H 11 L 135/92 96 02/08/20 16:31 02/08/20 16:31 02/08/20 16:31 02/08/20 16:31 Results - Laboratory Findings CBC and BMP: 02/10/20 Unknown 02/10/20 Unknown ABG ABG pH 7.470 pH Units (7.350-7.450) H 02/08/20 19:44 ABG pCO2 32.3 mm Hg 02/08/20 19:44 ABG pO2 52.7 mm Hg (80.0-90.0) L 02/08/20 19:44 ABG O2 Saturation 90.1 % (95.0-99.0) L 02/08/20 19:44 Abnormal lab findings: Abnormal Labs 02/08/20 02/08/20 02/08/20 18:49 18:49 19:44 WBC RDW 12.7 L Lymph % (Auto) 6.1 L Lymph # 0.6 L Seg Neutrophils % 88.7 H Seg Neutrophils # 9.3 H ABG pH 7.470 H ABG pO2 52.7 L ABG O2 Saturation 90.1 L Oxyhemoglobin 88.1 L Sodium 130 L Chloride 93.9 L Carbon Dioxide Creatinine 0.7 L Glucose 133 H Calcium 8.2 L Albumin 3.8 L 02/09/20 02/09/20 02/10/20 04:06 04:06 Unknown WBC 13.7 H RDW 12.6 L 12.7 L Lymph % (Auto) 9.7 L Lymph # 1.0 L Seg Neutrophils % 85.5 H Seg Neutrophils # 8.5 H ABG pH ABG pO2 ABG O2 Saturation Oxyhemoglobin Sodium 134 L Chloride Carbon Dioxide 21 L Creatinine Glucose 151 H Calcium 7.5 L Albumin 02/10/20 Unknown WBC RDW Lymph % (Auto) Lymph # Seg Neutrophils % Seg Neutrophils # ABG pH ABG pO2 ABG O2 Saturation Oxyhemoglobin Sodium 134 L Chloride Carbon Dioxide 21 L Creatinine 0.5 L Glucose 123 H Calcium 7.6 L Albumin
[2020-02-11] MEDS: oxyCODONE /ACETAMINOPHEN 5-325MG TAB PO PRN (05:07)
[2020-02-11] MEDS: AZITHROMYCIN 500 MG in SODIUM CHLORIDE 0.9% 250ML 250 ML IV SCH (10:13)
[2020-02-11] MEDS: cefTRIAXone/NS 2 GM/100 ML 2 GM/100 ML BAG IV SCH (10:13)
[2020-02-11] MEDS: ENOXAPARIN 40 MG/0.4 ML INJ SUB-Q SCH (10:14)
--- NOTE | 2020-02-11 13:33 | Progress Note ---
Assessment and Plan Acute hypoxemic respiratory failure. Community-acquired pneumonia. Febrile illness, rule out COVID-19. Mild hyponatremia. Hyperglycemia. - continue to wean supplemental oxygen to keep O2 sats > 90% - continue Bronchodilators (CHELLY) with pulm hygiene per RT - repeat CXR prn - follow COVID-19 result - continue empiric CAP antibiotics - prn analgesia per pain score - continue mobility protocols to prevent pressure ulcers - PT/OT as tolerated - accuchecks with glycemic control per SSI for target blood glucose < 180 mg/dL - home oxygen evaluation at discharge - GI & VTE prophylaxis - Flu & pneumovax per protocol - Pulmonary out patient follow up post discharge - continue other care per attending / other consultants ... re-evaluate in am & prn Subjective Date of service: 02/11/20 Principal diagnosis: Ac hypoxemic resp failure; PNA (CAP); Febrile illness r/o COVID-19 Interval history: Patient is seen today for: Acute hypoxemic respiratory failure; Pneumonia (CAP); Febrile illness r/o COVID-19; Mild hyponatremia; Hyperglycemia. Seen and examined at bedside; 24hour events reviewed; nursing and respiratory care staff consulted; no adverse overnight events reported to me; resting in bed; still; SOB; Tm of 102.3F yesterday; no hemoptysis; no chest pains; awaiting COVID-19 results Objective Vital Signs - 12hr 02/11/20 02/11/20 02/11/20 09:56 11:08 12:34 Temperature 98.5 F Pulse Rate 69 Respiratory 16 Rate Blood Pressure 112/69 [Left] O2 Sat by Pulse 92 92 92 Oximetry 02/11/20 13:13 Temperature Pulse Rate Respiratory Rate Blood Pressure [Left] O2 Sat by Pulse 92 Oximetry Constitutional: appears uncomfortable, other (middle aged male, normocep[halic with mildly increased respiratory effort at rest) Eyes: non-icteric ENT: oropharynx moist Neck: supple, no lymphadenopathy, no JVD Effort: mildly labored Ascultation: Bilateral: rhonchi Percussion: Bilateral: not dull Cardiovascular: regular rate and rhythm Gastrointestinal: normoactive bowel sounds, soft, non-tender, non-distended Integumentary: normal Extremities: no cyanosis, no edema, pulses normal, no ischemia or petechiae Neurologic: normal mental status, non-focal exam, pupils equal and round, motor strength normal and Psychiatric: anxious CBC and BMP: 02/12/20 05:00 02/12/20 05:00 ABG, PT/INR, D-dimer: ABG ABG pH 7.470 pH Units (7.350-7.450) H 02/08/20 19:44 ABG pCO2 32.3 mm Hg 02/08/20 19:44 ABG pO2 52.7 mm Hg (80.0-90.0) L 02/08/20 19:44 ABG O2 Saturation 90.1 % (95.0-99.0) L 02/08/20 19:44 Abnormal lab findings: Abnormal Labs 02/08/20 02/08/20 02/08/20 18:49 18:49 19:44 WBC RDW 12.7 L Lymph % (Auto) 6.1 L Lymph # 0.6 L Seg Neutrophils % 88.7 H Seg Neutrophils # 9.3 H ABG pH 7.470 H ABG pO2 52.7 L ABG O2 Saturation 90.1 L Oxyhemoglobin 88.1 L Sodium 130 L Chloride 93.9 L Carbon Dioxide Creatinine 0.7 L Glucose 133 H Calcium 8.2 L Albumin 3.8 L 02/09/20 02/09/20 02/10/20 04:06 04:06 Unknown WBC 13.7 H RDW 12.6 L 12.7 L Lymph % (Auto) 9.7 L Lymph # 1.0 L Seg Neutrophils % 85.5 H Seg Neutrophils # 8.5 H ABG pH ABG pO2 ABG O2 Saturation Oxyhemoglobin Sodium 134 L Chloride Carbon Dioxide 21 L Creatinine Glucose 151 H Calcium 7.5 L Albumin 02/10/20 Unknown WBC RDW Lymph % (Auto) Lymph # Seg Neutrophils % Seg Neutrophils # ABG pH ABG pO2 ABG O2 Saturation Oxyhemoglobin Sodium 134 L Chloride Carbon Dioxide 21 L Creatinine 0.5 L Glucose 123 H Calcium 7.6 L Albumin Chest x-ray: pending Allied health notes reviewed: nursing
--- NOTE | 2020-02-11 13:42 | Progress Note ---
Assessment and Plan Assessment and plan: Bilateral pneumonia Fever,cough,shortness of breath R/o COVID 19 Started IV Rocephin, azithromycin, follow cultures Consulted ID, Department of Health notified, Swab specimen sent, awaiting result Cont droplet precaution DVT prophylaxis Acute resp failure On supplemental oxygen Pulmonology following Hyponatremia 02/09 Still having cough, fever. Swab specimen sent 02/08. awaiting result. 02/10 Still shortness of breath fever. On VM 50% with Fi02 50%. To f/u result of COVID test with Dept of health. History Interval history: Fever Cough Shortness of breath Hospitalist Physical - Physical exam Narrative exam: GEN: Not in acute distress, lying in bed, HEENT: Normocephalic, atraumatic, Neck: supple, No JVD Lungs: Bilateral crackles, no wheeze heart;S1 and S2 reg, no murmurs, rubs or gallop Abd:soft, non tender, non distended, normal bowel sounds Ext: No edema, no clubbing, no cyanosis, Neuro: Awake,alert,oriented x 3, no focal neuro signs - Constitutional Vitals: Temp Pulse Resp BP Pulse Ox 98.5 F 69 16 112/69 92 02/11/20 12:34 02/11/20 12:34 02/11/20 12:34 02/11/20 12:34 02/11/20 13:13 Results - Labs CBC & Chem 7: 02/10/20 Unknown 02/10/20 Unknown Labs: Laboratory Last Values WBC 13.7 K/mm3 (4.5-11.0) H 02/10/20 Unknown RBC 4.07 M/mm3 (3.65-5.03) 02/10/20 Unknown Hgb 12.5 gm/dl (11.8-15.2) 02/10/20 Unknown Hct 36.4 % (35.5-45.6) 02/10/20 Unknown MCV 90 fl (84-94) 02/10/20 Unknown MCH 31 pg (28-32) 02/10/20 Unknown MCHC 34 % (32-34) 02/10/20 Unknown RDW 12.7 % (13.2-15.2) L 02/10/20 Unknown Plt Count 256 K/mm3 (140-440) 02/10/20 Unknown Lymph % (Auto) 9.7 % (13.4-35.0) L 02/09/20 04:06 [place] % (Auto) 4.7 % (0.0-7.3) 02/09/20 04:06 Eos % (Auto) 0.0 % (0.0-4.3) 02/09/20 04:06 Baso % (Auto) 0.1 % (0.0-1.8) 02/09/20 04:06 Lymph # 1.0 K/mm3 (1.2-5.4) L 02/09/20 04:06 [place] # 0.5 K/mm3 (0.0-0.8) 02/09/20 04:06 Eos # 0.0 K/mm3 (0.0-0.4) 02/09/20 04:06 Baso # 0.0 K/mm3 (0.0-0.1) 02/09/20 04:06 Seg Neutrophils % 85.5 % (40.0-70.0) H 02/09/20 04:06 Seg Neutrophils # 8.5 K/mm3 (1.8-7.7) H 02/09/20 04:06 ABG pH 7.470 pH Units (7.350-7.450) H 02/08/20 19:44 ABG pCO2 32.3 mm Hg 02/08/20 19:44 ABG pO2 52.7 mm Hg (80.0-90.0) L 02/08/20 19:44 ABG HCO3 23.0 mmol/L (20.0-26.0) 02/08/20 19:44 ABG O2 Saturation 90.1 % (95.0-99.0) L 02/08/20 19:44 ABG O2 Content 18.6 (0.0-44) 02/08/20 19:44 ABG Base Excess 0.2 mmol/L (-2.0-3.0) 02/08/20 19:44 ABG Hemoglobin 15.0 gm/dl (14.0-18.0) 02/08/20 19:44 ABG Carboxyhemoglobin 1.5 % (0.0-5.0) 02/08/20 19:44 ABG Methemoglobin 0.7 % (0.0-1.5) 02/08/20 19:44 Oxyhemoglobin 88.1 % (95.0-99.0) L 02/08/20 19:44 FiO2 21 % 02/08/20 19:44 Sodium 134 mmol/L (137-145) L 02/10/20 Unknown Potassium 3.7 mmol/L (3.6-5.0) 02/10/20 Unknown Chloride 100.4 mmol/L (98-107) 02/10/20 Unknown Carbon Dioxide 21 mmol/L (22-30) L 02/10/20 Unknown Anion Gap 16 mmol/L 02/10/20 Unknown BUN 9 mg/dL (9-20) 02/10/20 Unknown Creatinine 0.5 mg/dL (0.8-1.5) L 02/10/20 Unknown Estimated GFR > 60 ml/min 02/10/20 Unknown BUN/Creatinine Ratio 18 % 02/10/20 Unknown Glucose 123 mg/dL (75-100) H 02/10/20 Unknown Lactic Acid 1.10 mmol/L (0.7-2.0) 02/08/20 18:49 Calcium 7.6 mg/dL (8.4-10.2) L 02/10/20 Unknown Total Bilirubin 0.60 mg/dL (0.1-1.2) 02/08/20 18:49 AST 39 units/L (5-40) 02/08/20 18:49 ALT 49 units/L (7-56) 02/08/20 18:49 Alkaline Phosphatase 72 units/L (35-129) 02/08/20 18:49 Total Protein 7.2 g/dL (6.3-8.2) 02/08/20 18:49 Albumin 3.8 g/dL (3.9-5) L 02/08/20 18:49 Albumin/Globulin Ratio 1.1 % 02/08/20 18:49 Influenza A (Rapid) Negative (Negative) 02/08/20 Unknown Influenza B (Rapid) Negative (Negative) 02/08/20 Unknown Lee/IV: Voiding Method Toilet IV Catheter Type [Right INT / Saline Lock Forearm] IV Catheter Type [Left INT / Saline Lock Antecubital] Active Medications - Current Medications Current Medications: Generic Name Dose Route Start Last Admin Trade Name Freq PRN Reason Stop Dose Admin Acetaminophen 650 mg 02/08/20 23:06 02/10/20 00:29 Tylenol PO 650 mg Q4H PRN Administration Pain MILD(1-3)/Fever >100.5/ULLOA Albuterol 2 puff 02/09/20 18:52 Proair IH Q4HRT PRN Shortness Of Breath Azithromycin 500 mg 02/12/20 10:00 Zithromax PO 02/13/20 10:01 QDAY YAMILA Diphenhydramine HCl 25 mg 02/10/20 12:49 Benadryl PO Q8H PRN Itching Diphenhydramine HCl 25 mg 02/10/20 12:50 02/10/20 13:05 Benadryl IV 25 mg Q6H PRN Administration Itching Enoxaparin Sodium 40 mg 02/09/20 10:00 02/11/20 10:14 Enoxaparin SUB-Q 40 mg QDAY@1000 YAMILA Administration Famotidine 20 mg 02/12/20 10:00 Pepcid PO QDAY YAMILA Azithromycin 500 mg/ Sodium 250 mls @ 250 mls/hr 02/09/20 10:00 02/11/20 10:13 Chloride IV 02/11/20 15:00 250 mls/hr Q24HR YAMILA Administration Protocol Sodium Chloride 1,000 mls @ 100 mls/hr 02/09/20 06:00 02/10/20 21:02 Nacl 0.9% 1000 Ml IV 100 mls/hr DIRECT YAMILA Administration Ceftriaxone Sodium 2 gm in 100 mls @ 200 mls/hr 02/11/20 10:00 02/11/20 10:13 Rocephin/Ns 2 Gm/100 Ml IV 200 mls/hr Q24HR YAMILA Administration Protocol Ondansetron HCl 4 mg 02/08/20 23:06 Zofran IV Q8H PRN Nausea And Vomiting Oxycodone/Acetaminophen 1 tab 02/08/20 23:06 02/11/20 05:07 Percocet 5/325 PO 1 tab Q6H PRN Administration Pain, Moderate (4-6) Sodium Chloride 10 ml 02/09/20 10:00 02/11/20 13:09 Sodium Chloride Flush Syringe 10 Ml IV 10 ml BID YAMILA Administration Sodium Chloride 10 ml 02/08/20 23:06 Sodium Chloride Flush Syringe 10 Ml IV PRN PRN LINE FLUSH
--- NOTE | 2020-02-11 15:36 | Progress Note ---
Assessment and Plan Cultures: Blood culture 02/08/2020 Flu negative A/P: 44 yo M no PMHx admitted to the hospital with a bilateral pneumonia and being ruled out for novel coronavirus #COVID19 rule out: Pending results of [facility]. Appreciate primary team's filling out information to expediate obtaining testing. Given his symptoms I am concerned for the coronavirus. However I will continue ceftriaxone azithromycin in the meantime until testing becomes available. Continue droplet and contact precautions. #Bilateral pneumonia: Treatment as above. Recs: -Procalcitonin slightly above normal, still in keeping with viral etiology. -Continue droplet and contact precautions -Continue azithromycin and ceftriaxone, however increase ceftriaxone to 2 g daily -Follow-up [facility] testing results. Thank you for the consult, will continue to follow. Hiro Nettles MD [facility] M: [phone] O: [phone] F: [phone] Subjective Date of service: 02/11/20 Interval history: No new concerns at this time, ongoing shortness of breath and cough. Remains afebrile, with an increase in white count to 14. Remains on ceftriaxone and azithromycin. Objective - Exam Narrative Exam: Physical Exam: Constitutional: Alert, cooperative. No acute distress, overwieght Head, Ears, Nose: Normocephalic, atraumatic. External ears, nose normal Neck: Supple, no meningeal signs Oral: dentition fair, no thrush Cardiovascular: S1, S2 normal. Respiratory: Bilateral rhonchi/wheezes GI: Soft, non-tender; bowel sounds normal. No peritoneal signs. Musculoskeletal: No pedal edema, no cyanosis. Skin: No rash or abscess Hem/Lymphatic: No palpable cervical or supraclavicular nodes. No lymphangitis Psych: Mood ok. Affect normal Neurological: Awake, alert, oriented. No gross abnormality - Constitutional Vitals: Vital Signs Temp Pulse Resp BP Pulse Ox 98.5 F 69 16 112/69 92 02/11/20 12:34 02/11/20 12:34 02/11/20 12:34 02/11/20 12:34 02/11/20 13:13 Temperature -Last 24 Hours Temperature 98.5 F Temperature 98.8 F - Labs CBC & Chem 7: 02/10/20 Unknown 02/10/20 Unknown
[2020-02-12] MEDS: oxyCODONE /ACETAMINOPHEN 5-325MG TAB PO PRN (00:33)
[2020-02-12] MEDS: SODIUM CHLORIDE 0.9% 1000 ML 1,000 ML IV SCH ×3 (00:35→22:32)
--- NOTE | 2020-02-12 00:53 | Consultation ---
PULMONARY CONSULT NOTE CONSULTING PHYSICIAN: Dr. Granger. REASON FOR CONSULTATION: Bilateral pneumonia, rule out COVID-19. CHIEF COMPLAINT AND HISTORY OF PRESENT ILLNESS: The patient is a 44-year-old male with past medical history of which he denies any, came into the emergency room complaining of shortness of breath, cough, chills and fever. It has been going on for a few days. He had earlier on being seen in an urgent care, diagnosed with sinusitis and given treatment. He is unclear if he was on any antibiotics. When he went back to the urgent care, they diagnosed him this time with bronchitis and was treated with amoxicillin, systemic steroids and fluticasone. Symptoms persisted, so he came back to the emergency room. In the emergency room, he was evaluated and found to have bilateral pulmonary infiltrates. He was hypoxemic. Of note, he denies any travel out of the country. He denies any contact with known patients with COVID-19. He denied any prior constitutional illness. He denies any constitutional symptoms. Denies night sweats, denies arthralgias. He denies any sore throat. He denies any rhinorrhea at the time that I stopped by to see him. As mentioned above, he was having fevers. He complained of dyspnea on exertion. He complained of cough productive of yellowish phlegm. Now with regard to tobacco use/abuse history, he denies history of tobacco use, whatsoever. This really is as much of the history of presentation as I have. PAST MEDICAL HISTORY: Denies. PAST SURGICAL HISTORY: Denies. MEDICATIONS: He was on at the time I stopped by to see him were reviewed. Pertinent medications include the following: Tylenol 650 mg p.o. q. 4 hours p.r.n. mild pain or fevers, albuterol nebulizer treatments 2 puffs inhaled q. 4 hours p.r.n., Lovenox 40 mg subcutaneous daily, azithromycin 500 mg IV daily, Rocephin 2 g IV daily, Zofran 4 mg IV q. 8 hours p.r.n. nausea and vomiting, Percocet 5/325 one tablet p.o. q. 6 hours p.r.n. moderate pain. ALLERGIES: No known drug allergies. DIET: Well-built gentleman. Denies acute weight loss or gain in the preceding few weeks to months. FAMILY AND SOCIAL HISTORY: Lives in the community. Denies current alcohol, tobacco, or illicit drug use or abuse. There is a family history of hypertension. REVIEW OF SYSTEMS: No loss of consciousness. No new onset seizures. No new onset focal weakness. Denies neck pain or rigidity. He denies any chest pains or palpitations. He denied any polydipsia or polyuria. Denied heat or cold intolerance. Denied any new rash on his body. Denied any periods of unexplained sadness and/or elation as may be consistent with psychiatric type disorders. He denies any easy bruising. Complete 13-system review of systems obtained. Pertinent positives and/or negatives as above, otherwise as in the body of the history above. PHYSICAL EXAMINATION: VITAL SIGNS: At presentation, he had a low-grade fever, temperature 99.4 degrees Fahrenheit, pulse of 113, respiratory rate of 11 at presentation and blood pressure 135/92. O2 sats were 96%, inspired oxygen concentration at that time was not recorded. Since he has been in the hospital, he has a T-max of 102.3 degrees Fahrenheit. When I saw him, his O2 sats were 96% at that time; however, that was on 50% FiO2 via a Venturi mask. GENERAL: He is a middle-aged male, normocephalic, atraumatic, talking to me with slightly interrupted sentences, with mildly increased respiratory effort at rest. HEAD, EYES, EARS, NOSE AND THROAT: He was anicteric, no conjunctival erythema. Oropharynx was moist. Mallampati #2 oropharynx. No posterior oropharyngeal exudates were seen neither on the palate nor on the base of the tongue. NECK: Grossly, there were no palpable lymph nodes in the supraclavicular or submandibular lymph node chains. No gross tenderness. No gross jugular venous distention, no thyromegaly. LUNGS: Auscultation of both lung stevens significant for bilateral inspiratory rales, no active wheezing. HEART: Heart sounds 1 and 2 are heard, regular rate and rhythm at the time of my evaluation without overt rubs or murmurs. ABDOMEN: Soft, full, bowel sounds are positive, nontender, no palpable hepatosplenomegaly. EXTREMITIES: Without overt digital clubbing or cyanosis, no pedal edema. Pedal pulses are 2+ bilaterally. NEUROLOGIC: Pupils are equal, round, about 3-4 mm, reactive to light. Extraocular muscle movements are intact. He moves all 4 extremities spontaneously. SKIN: Normal turgor without overt cellulitis or rash. PSYCHIATRIC: His mood was depressed, his affect was anxious. LABORATORY DATA: From my review are as follows: Admission white cell count 10,400, hemoglobin 14.3, hematocrit 42.3, platelet count 261. Arterial blood gas showed a pH of 7.47, pCO2 of 32, pO2 of 53 that was on room air. Serum sodium was 130, potassium 3.6, chloride 94, bicarbonate 23, BUN 13, creatinine 0.7, glucose was 133. Lactic acid within normal limits. Liver function tests within normal limits. Rapid Flu A and B were negative. Blood cultures, no growth to date. Chest x-ray has been reviewed, which shows bilateral pneumonic infiltrates, in particular the right lower lobe region; however, there is also evidence of hypoventilation and some element of atelectasis, platelike atelectasis and streaky atelectasis in both lungs, the mid zones. ASSESSMENT: 1. Acute hypoxemic respiratory failure. 2. Community-acquired pneumonia. 3. Febrile illness, rule out COVID-19. 4. Mild hyponatremia. 5. Hyperglycemia. PLAN: I do agree with the decision to rule out COVID-19 in this gentleman. He is on airborne and contact precautions at this point. If a negative pressure room is available, it will be worth their while to put him immediately out of an abundance of caution. Otherwise, we will maintain other precautions as we have right now. I agree with empiric community-acquired pneumonia treatment including coverage for atypical pneumonias which is the more likely disease process we may be dealing with, by which I mean community-acquired pneumonia. Otherwise, oxygen will be weaned to keep sats greater than or equal to about 90%. Aspiration precautions will be maintained. I will get a BNP level to evaluate cardiac status a little bit more. Samples have been sent for COVID-19 testing. He is appropriately on DVT prophylaxis. He will be placed on GI prophylaxis. Pain will be treated per pain score. Flu and pneumonia vaccination will be addressed per protocol. Continued tobacco abstinence has been counseled. Thank you very much for the consult. We will follow along and make further recommendations as picture progresses/becomes clearer. I have taken the time to try and allay the patient's fears and letting him know that more common things occur commonly, but we will all wait for the COVID-19 results. JOB# [id number] KIKI/RODNEY BARRIENTOS
[2020-02-12] MEDS ORDERED: ALBUTEROL 2.5 MG/3 ML NEBU IH ONE (03:16)
[2020-02-12] MEDS ORDERED: ALBUTEROL 2.5 MG/3 ML NEBU IH PRN (03:22)
[2020-02-12 05:38] LABS: Hematocrit 36.6 % (35.5-45.6); Hemoglobin 12.5 gm/dl (11.8-15.2); Mean Corpuscular HGB Conc 34 % (32-34); Mean Corpuscular Volume 90 fl (84-94); Platelet Count 423 K/mm3 (140-440); Red Blood Count 4.07 M/mm3 (3.65-5.03); Red Cell Distribution Width 12.4 % (13.2-15.2)
[2020-02-12 05:49] LABS: BUN/Creatinine Ratio 18; Blood Urea Nitrogen 9 mg/dL (9-20); Calcium 7.9 mg/dL (8.4-10.2); Hemolysis Index 6
[2020-02-12] MEDS ORDERED: FAMOTIDINE 20 MG TAB PO ONE (06:19)
[2020-02-12] MEDS ORDERED: POTASSIUM CHLORIDE ER 20 MEQ TAB PO NR (10:10)
[2020-02-12] MEDS: cefTRIAXone/NS 2 GM/100 ML 2 GM/100 ML BAG IV SCH (10:46)
[2020-02-12] MEDS: AZITHROMYCIN 250 MG TAB PO SCH (10:47)
[2020-02-12] MEDS: FAMOTIDINE 20 MG TAB PO SCH (10:48)
[2020-02-12] MEDS: ENOXAPARIN 40 MG/0.4 ML INJ SUB-Q SCH (10:48)
--- NOTE | 2020-02-12 13:11 | Progress Note ---
Assessment and Plan Cultures: Blood culture 02/08/2020 Flu negative A/P: 44 yo M no PMHx admitted to the hospital with a bilateral pneumonia and being ruled out for novel coronavirus #COVID19 rule out: Pending results of [facility]. Appreciate primary team's filling out information to expediate obtaining testing. Given his symptoms I am concerned for the coronavirus. However I will continue ceftriaxone azithromycin in the meantime until testing becomes available. Continue droplet and contact precautions. #Bilateral pneumonia: Treatment as above. Recs: -Procalcitonin slightly above normal, still in keeping with viral etiology. -Continue droplet and contact precautions -Continue azithromycin and ceftriaxone, however increase ceftriaxone to 2 g daily. If discharging prior to completion of course, would discharge with cefdinir 3 mg every 12 hours to complete 5 days and starting ceftriaxone. -Follow-up [facility] testing results. - Patient may be discharged when medically stable if testing swabs have been obtained. Upon discharge patient should self-quarantine at home until COVID testing returns. If negative, self-quarantine may end. If positive patient should self-quarantine for 14 days from symptom beginning. Public health and infection prevention will follow up with patients to notify them of their test results. Patients should return to hospital regardless if they have worsening fevers or respiratory status. Thank you for the consult, will continue to follow. Hiro Nettles MD [facility] ([facility] M: [phone] O: [phone] F: [phone] Subjective Date of service: 02/12/20 Interval history: Afebrile now with a normal white count, which returned to normal from being elevated yesterday. Procalcitonin slightly elevated at 0.2. Objective - Exam Narrative Exam: Physical Exam: Constitutional: Alert, cooperative. No acute distress, overweight. Appears more comfortable today. Head, Ears, Nose: Normocephalic, atraumatic. External ears, nose normal Neck: Supple, no meningeal signs Oral: dentition fair, no thrush Cardiovascular: S1, S2 normal. Respiratory: Bilateral rhonchi/wheezes GI: Soft, non-tender; bowel sounds normal. No peritoneal signs. Musculoskeletal: No pedal edema, no cyanosis. Skin: No rash or abscess Hem/Lymphatic: No palpable cervical or supraclavicular nodes. No lymphangitis Psych: Mood ok. Affect normal Neurological: Awake, alert, oriented. No gross abnormality - Constitutional Vitals: Vital Signs Temp Pulse Resp BP Pulse Ox 98.3 F 66 18 128/80 95 02/12/20 10:45 02/12/20 10:43 02/12/20 10:45 02/12/20 10:43 02/12/20 10:43 Temperature -Last 24 Hours Temperature 98.3 F Temperature 98.4 F - Labs CBC & Chem 7: 02/12/20 05:00 02/12/20 05:00 Labs: Abnormal lab results 02/11/20 02/12/20 02/12/20 Range/Units 14:33 05:00 05:00 RDW 12.4 L (13.2-15.2) % Sodium 135 L (137-145) mmol/L Potassium 3.5 L (3.6-5.0) mmol/L Creatinine 0.5 L (0.8-1.5) mg/dL Glucose 140 H (75-100) mg/dL Calcium 7.9 L (8.4-10.2) mg/dL NT-Pro-B Natriuret Pep 464.5 H (0-450) pg/mL
--- NOTE | 2020-02-12 14:13 | Progress Note ---
Assessment and Plan Acute hypoxemic respiratory failure. Community-acquired pneumonia. Febrile illness, rule out COVID-19. Mild hyponatremia. Hyperglycemia. - continue to wean supplemental oxygen to keep O2 sats > 90% (on 50% Venti-mask) - continue airborne and contact precautions - continue Bronchodilators (CHELLY) with pulm hygiene per RT - repeat CXR in am - follow COVID-19 result - complete empiric CAP antibiotics - prn analgesia per pain score - continue mobility protocols to prevent pressure ulcers - PT/OT as tolerated - accuchecks with glycemic control per SSI for target blood glucose < 180 mg/dL - home oxygen evaluation at discharge - GI & VTE prophylaxis - Flu & pneumovax per protocol - Pulmonary out patient follow up post discharge - continue other care per attending / other consultants ... re-evaluate in am & prn Subjective Date of service: 02/12/20 Principal diagnosis: Ac hypoxemic resp failure; PNA (CAP); Febrile illness r/o COVID-19 Interval history: Patient is seen today for: Acute hypoxemic respiratory failure; Pneumonia (CAP); Febrile illness r/o COVID-19; Mild hyponatremia; Hyperglycemia. Seen and examined at bedside; 24hour events reviewed; nursing and respiratory care staff consulted; no adverse overnight events reported to me; resting in bed; clinically feels a little better but still SOB and with orthopnea; no emesis or overt aspiration; no hemoptysis Objective Vital Signs - 12hr 02/12/20 02/12/20 02/12/20 03:23 10:43 10:45 Temperature 98.3 F Pulse Rate 66 Pulse Rate [ 80 Bilateral] Respiratory 18 Rate Respiratory 20 Rate [Bilateral ] Blood Pressure 128/80 O2 Sat by Pulse 95 Oximetry Constitutional: appears uncomfortable, other (middle aged male, normocephalic with mildly increased respiratory effort at rest) Eyes: non-icteric ENT: oropharynx moist Neck: supple, no lymphadenopathy, no JVD Effort: mildly labored Ascultation: Bilateral: rales (basilar predominant) Percussion: Bilateral: not dull Cardiovascular: regular rate and rhythm Gastrointestinal: normoactive bowel sounds, soft, non-tender, non-distended Integumentary: normal Extremities: no cyanosis, no edema, pulses normal, no ischemia or petechiae Neurologic: normal mental status, non-focal exam, pupils equal and round, motor strength normal and Psychiatric: anxious (less so) CBC and BMP: 02/12/20 05:00 02/12/20 05:00 ABG, PT/INR, D-dimer: ABG ABG pH 7.470 pH Units (7.350-7.450) H 02/08/20 19:44 ABG pCO2 32.3 mm Hg 02/08/20 19:44 ABG pO2 52.7 mm Hg (80.0-90.0) L 02/08/20 19:44 ABG O2 Saturation 90.1 % (95.0-99.0) L 02/08/20 19:44 Abnormal lab findings: Abnormal Labs 02/08/20 02/08/20 02/08/20 18:49 18:49 19:44 WBC RDW 12.7 L Lymph % (Auto) 6.1 L Lymph # 0.6 L Seg Neutrophils % 88.7 H Seg Neutrophils # 9.3 H ABG pH 7.470 H ABG pO2 52.7 L ABG O2 Saturation 90.1 L Oxyhemoglobin 88.1 L Sodium 130 L Potassium Chloride 93.9 L Carbon Dioxide Creatinine 0.7 L Glucose 133 H Calcium 8.2 L NT-Pro-B Natriuret Pep Albumin 3.8 L 02/09/20 02/09/20 02/10/20 04:06 04:06 Unknown WBC 13.7 H RDW 12.6 L 12.7 L Lymph % (Auto) 9.7 L Lymph # 1.0 L Seg Neutrophils % 85.5 H Seg Neutrophils # 8.5 H ABG pH ABG pO2 ABG O2 Saturation Oxyhemoglobin Sodium 134 L Potassium Chloride Carbon Dioxide 21 L Creatinine Glucose 151 H Calcium 7.5 L NT-Pro-B Natriuret Pep Albumin 02/10/20 02/11/20 02/12/20 Unknown 14:33 05:00 WBC RDW 12.4 L Lymph % (Auto) Lymph # Seg Neutrophils % Seg Neutrophils # ABG pH ABG pO2 ABG O2 Saturation Oxyhemoglobin Sodium 134 L Potassium Chloride Carbon Dioxide 21 L Creatinine 0.5 L Glucose 123 H Calcium 7.6 L NT-Pro-B Natriuret Pep 464.5 H Albumin 02/12/20 05:00 WBC RDW Lymph % (Auto) Lymph # Seg Neutrophils % Seg Neutrophils # ABG pH ABG pO2 ABG O2 Saturation Oxyhemoglobin Sodium 135 L Potassium 3.5 L Chloride Carbon Dioxide Creatinine 0.5 L Glucose 140 H Calcium 7.9 L NT-Pro-B Natriuret Pep Albumin Chest x-ray: pending Allied health notes reviewed: nursing
--- NOTE | 2020-02-12 16:50 | Progress Note ---
Assessment and Plan /Bilateral pneumonia with sepsis Fever,cough,shortness of breath, tachycardia, tachypnea need to R/o COVID 19 Started IV Rocephin, azithromycin, follow cultures Consulted ID, Department of Health notified, Swab specimen sent, awaiting result Cont droplet precaution /Acute hypoxic resp failure On supplemental oxygen via vm Pulmonology following, nebs as needed wean off O2 as tolerated /Hyponatremia, stable /Dvt Px, scd and lovenox 02/09 Still having cough, fever. Swab specimen sent 02/08. awaiting result. 02/10 Still shortness of breath fever. On VM 50% with Fi02 50%. To f/u result of COVID test with Dept of health. 02/11 On VM 50% with Fi02 50%. To f/u result of COVID test with Dept of health. not medically stable for d/c. updated by phone Brief History 44 yo M no PMHx admitted to the hospital with a bilateral pneumonia and being ruled out for novel coronavirus Hospitalist Physical GEN: Not in acute distress, lying in bed, HEENT: Normocephalic, atraumatic, Neck: supple, No JVD Lungs: Bilateral crackles, no wheeze heart;S1 and S2 reg, no murmurs, rubs or gallop Abd:soft, non tender, non distended, normal bowel sounds Ext: No edema, no clubbing, no cyanosis, Neuro: Awake,alert,oriented x 3, no focal neuro signs Subjective Date of service: 02/12/20 Principal diagnosis: Ac hypoxemic resp failure; PNA (CAP); Febrile illness r/o COVID-19 Interval history: Pt seen and examined Still having SOB, frustrated about the pending test result c/o chest pain with cough Objective - Constitutional Vitals: Vital Signs - 12hr 02/12/20 02/12/20 10:43 10:45 Temperature 98.3 F Pulse Rate 66 Respiratory 18 Rate Blood Pressure 128/80 O2 Sat by Pulse 95 Oximetry - Labs CBC & Chem 7: 02/12/20 05:00 02/12/20 05:00 Labs: Abnormal lab results 02/12/20 02/12/20 Range/Units 05:00 05:00 RDW 12.4 L (13.2-15.2) % Sodium 135 L (137-145) mmol/L Potassium 3.5 L (3.6-5.0) mmol/L Creatinine 0.5 L (0.8-1.5) mg/dL Glucose 140 H (75-100) mg/dL Calcium 7.9 L (8.4-10.2) mg/dL
[2020-02-13] MEDS: oxyCODONE /ACETAMINOPHEN 5-325MG TAB PO PRN ×3 (01:51→19:52)
[2020-02-13] MEDS: cefTRIAXone/NS 2 GM/100 ML 2 GM/100 ML BAG IV SCH (10:35)
[2020-02-13] MEDS: FAMOTIDINE 20 MG TAB PO SCH (10:36)
[2020-02-13] MEDS: AZITHROMYCIN 250 MG TAB PO SCH (10:36)
[2020-02-13] MEDS: ENOXAPARIN 40 MG/0.4 ML INJ SUB-Q SCH (10:36)
[2020-02-13] MEDS: SODIUM CHLORIDE 0.9% 1000 ML 1,000 ML IV SCH ×2 (10:58→21:15)
--- NOTE | 2020-02-13 14:08 | Progress Note ---
Assessment and Plan /Bilateral pneumonia with sepsis Fever,cough,shortness of breath, tachycardia, tachypnea need to R/o COVID 19 Started IV Rocephin, azithromycin, follow cultures Consulted ID, Department of Health notified, Swab specimen sent, awaiting result Cont droplet precaution /Acute hypoxic resp failure On supplemental oxygen via Pulmonology following, nebs as needed wean off O2 as tolerated /Hyponatremia, stable /Dvt Px, scd and lovenox 02/09 Still having cough, fever. Swab specimen sent 02/08. awaiting result. 02/10 Still shortness of breath fever. On VM 50% with Fi02 50%. To f/u result of COVID test with Dept of health. 02/11 On VM 50% with Fi02 50%. To f/u result of COVID test with Dept of health. not medically stable for d/c. updated by phone 02/12 On VM 50% with Fi02 50% - unable to wean. To f/u result of COVID test with Dept of health. not medically stable for d/c. Brief History 44 yo M no PMHx admitted to the hospital with a bilateral pneumonia and being ruled out for novel coronavirus Hospitalist Physical GEN: Not in acute distress, lying in bed, HEENT: Normocephalic, atraumatic, Neck: supple, No JVD Lungs: Bilateral crackles, no wheeze heart;S1 and S2 reg, no murmurs, rubs or gallop Abd:soft, non tender, non distended, normal bowel sounds Ext: No edema, no clubbing, no cyanosis, Neuro: Awake,alert,oriented x 3, no focal neuro signs Subjective Date of service: 02/13/20 Principal diagnosis: Ac hypoxemic resp failure; PNA (CAP); Febrile illness r/o COVID-19 Interval history: Pt seen and examined Still having SOB, still has cough no fever Objective - Constitutional Vitals: Vital Signs - 12hr 02/13/20 02/13/20 02/13/20 04:24 11:44 13:18 Temperature 99.1 F 98.6 F Pulse Rate 86 70 Respiratory 20 20 Rate Blood Pressure 117/65 Blood Pressure 119/70 [Left] O2 Sat by Pulse 98 93 94 Oximetry - Labs CBC & Chem 7: 02/12/20 05:00 02/12/20 05:00
--- NOTE | 2020-02-13 16:33 | Progress Note ---
Assessment and Plan Cultures: Blood culture 02/08/2020 Flu negative A/P: 44 yo M no PMHx admitted to the hospital with a bilateral pneumonia and being ruled out for novel coronavirus #COVID19 rule out: Pending results of [facility]. Appreciate primary team's filling out information to expediate obtaining testing. Given his symptoms I am concerned for the coronavirus. However I will continue ceftriaxone azithromycin in the meantime until testing becomes available. Continue droplet and contact precautions. #Bilateral pneumonia: Treatment as above. Recs: -Procalcitonin slightly above normal, still in keeping with viral etiology. -Continue droplet and contact precautions -Continue azithromycin and ceftriaxone, however increase ceftriaxone to 2 g daily. If discharging prior to completion of course, would discharge with cefdinir 3 mg every 12 hours to complete 5 days and starting ceftriaxone. -Follow-up [facility] testing results. - Patient may be discharged when medically stable if testing swabs have been obtained. Upon discharge patient should self-quarantine at home until COVID testing returns. If negative, self-quarantine may end. If positive patient should self-quarantine for 14 days from symptom beginning. Public health and infection prevention will follow up with patients to notify them of their test results. Patients should return to hospital regardless if they have worsening fevers or respiratory status. Thank you for the consult, will continue to follow. Hiro Nettles MD [facility] M: [phone] O: [phone] F: [phone] Subjective Date of service: 02/13/20 Principal diagnosis: Ac hypoxemic resp failure; PNA (CAP); Febrile illness r/o COVID-19 Interval history: Afebrile, no new complaints today. Objective - Exam Narrative Exam: Physical Exam: Constitutional: Alert, cooperative. No acute distress, overweight. Appears more comfortable today. Neck: Supple, no meningeal signs Oral: dentition fair, no thrush Cardiovascular: S1, S2 normal. Respiratory: Bilateral rhonchi/wheezes GI: Soft, non-tender; bowel sounds normal. No peritoneal signs. Musculoskeletal: No pedal edema, no cyanosis. Skin: No rash or abscess Hem/Lymphatic: No palpable cervical or supraclavicular nodes. No lymphangitis Psych: Mood ok. Affect normal Neurological: Awake, alert, oriented. No gross abnormality - Constitutional Vitals: Vital Signs Temp Pulse Resp BP Pulse Ox 98.6 F 70 20 117/65 94 02/13/20 11:44 02/13/20 11:44 02/13/20 11:44 02/13/20 11:44 02/13/20 13:18 Temperature -Last 24 Hours Temperature 98.6 F Temperature 99.1 F Temperature 99.6 F Temperature 99.5 F - Labs CBC & Chem 7: 02/12/20 05:00 02/12/20 05:00
--- NOTE | 2020-02-13 17:17 | XRay Report ---
CHEST 1 VIEW INDICATION: pneumonia. COMPARISON: 02/08/2020 FINDINGS: Support devices: None. Heart: Normal. Lungs/Pleura: There is extensive left lung airspace disease. Diffuse, patchy right lung airspace dise ase is noted as well. No significant effusion, no pneumothorax. IMPRESSION: 1. There is extensive bilateral airspace disease, greater on the left. This has significantly worsene d since the exam from 5 days ago. Signer Name: Doron Gandhi MD Signed: 02/13/2020 5:12 PM Workstation Name: [id number]
--- NOTE | 2020-02-13 18:20 | Progress Note ---
Assessment and Plan Acute hypoxemic respiratory failure. Community-acquired pneumonia. Febrile illness, rule out COVID-19. Mild hyponatremia. Hyperglycemia (Repeat CXR with worsening bilateral infiltrates) - deploy qhs BIPAP as tolerated for alveolar recruitment - continue to wean supplemental oxygen to keep O2 sats > 90% (on 50% Venti-mask) - continue airborne and contact precautions - continue Bronchodilators (CHELLY) with pulm hygiene per RT - repeat CXR prn - follow COVID-19 result - complete empiric CAP antibiotics - prn analgesia per pain score - continue mobility protocols to prevent pressure ulcers - PT/OT as tolerated - accuchecks with glycemic control per SSI for target blood glucose < 180 mg/dL - home oxygen evaluation at discharge - GI & VTE prophylaxis - Flu & pneumovax per protocol - Pulmonary out patient follow up post discharge - continue other care per attending / other consultants - watch closely ... re-evaluate in am & prn PROGNOSIS: GUARDED Subjective Date of service: 02/13/20 Principal diagnosis: Ac hypoxemic resp failure; PNA (CAP); Febrile illness r/o COVID-19 Interval history: Patient is seen today for: Acute hypoxemic respiratory failure; Pneumonia (CAP); Febrile illness r/o COVID-19; Mild hyponatremia; Hyperglycemia. Seen and examined at bedside; 24hour events reviewed; nursing and respiratory care staff consulted; no adverse overnight events reported to me; resting in bed; continues to feel better but still SOB; remains on 50-% Venti-mask Objective Vital Signs - 12hr 02/13/20 02/13/20 02/13/20 11:44 13:18 16:40 Temperature 98.6 F 98.6 F Pulse Rate 70 65 Respiratory 20 24 Rate Blood Pressure 117/65 128/74 O2 Sat by Pulse 93 94 91 Oximetry Constitutional: no acute distress, other (middle aged male, normocephalic with mildly increased respiratory effort at rest) Eyes: non-icteric ENT: oropharynx moist Neck: supple, no lymphadenopathy, no JVD Effort: mildly labored Ascultation: Bilateral: rales (basilar predominant) Percussion: Bilateral: not dull Cardiovascular: regular rate and rhythm Gastrointestinal: normoactive bowel sounds, soft, non-tender, non-distended Integumentary: normal Extremities: no cyanosis, no edema, pulses normal, no ischemia or petechiae Neurologic: normal mental status, non-focal exam, pupils equal and round, motor strength normal and Psychiatric: anxious (less so) CBC and BMP: 02/12/20 05:00 02/12/20 05:00 ABG, PT/INR, D-dimer: ABG ABG pH 7.470 pH Units (7.350-7.450) H 02/08/20 19:44 ABG pCO2 32.3 mm Hg 02/08/20 19:44 ABG pO2 52.7 mm Hg (80.0-90.0) L 02/08/20 19:44 ABG O2 Saturation 90.1 % (95.0-99.0) L 02/08/20 19:44 Abnormal lab findings: Abnormal Labs 02/08/20 02/08/20 02/08/20 18:49 18:49 19:44 WBC RDW 12.7 L Lymph % (Auto) 6.1 L Lymph # 0.6 L Seg Neutrophils % 88.7 H Seg Neutrophils # 9.3 H ABG pH 7.470 H ABG pO2 52.7 L ABG O2 Saturation 90.1 L Oxyhemoglobin 88.1 L Sodium 130 L Potassium Chloride 93.9 L Carbon Dioxide Creatinine 0.7 L Glucose 133 H Calcium 8.2 L NT-Pro-B Natriuret Pep Albumin 3.8 L 02/09/20 02/09/20 02/10/20 04:06 04:06 Unknown WBC 13.7 H RDW 12.6 L 12.7 L Lymph % (Auto) 9.7 L Lymph # 1.0 L Seg Neutrophils % 85.5 H Seg Neutrophils # 8.5 H ABG pH ABG pO2 ABG O2 Saturation Oxyhemoglobin Sodium 134 L Potassium Chloride Carbon Dioxide 21 L Creatinine Glucose 151 H Calcium 7.5 L NT-Pro-B Natriuret Pep Albumin 02/10/20 02/11/20 02/12/20 Unknown 14:33 05:00 WBC RDW 12.4 L Lymph % (Auto) Lymph # Seg Neutrophils % Seg Neutrophils # ABG pH ABG pO2 ABG O2 Saturation Oxyhemoglobin Sodium 134 L Potassium Chloride Carbon Dioxide 21 L Creatinine 0.5 L Glucose 123 H Calcium 7.6 L NT-Pro-B Natriuret Pep 464.5 H Albumin 02/12/20 05:00 WBC RDW Lymph % (Auto) Lymph # Seg Neutrophils % Seg Neutrophils # ABG pH ABG pO2 ABG O2 Saturation Oxyhemoglobin Sodium 135 L Potassium 3.5 L Chloride Carbon Dioxide Creatinine 0.5 L Glucose 140 H Calcium 7.9 L NT-Pro-B Natriuret Pep Albumin Allied health notes reviewed: nursing
[2020-02-14] MEDS: oxyCODONE /ACETAMINOPHEN 5-325MG TAB PO PRN ×3 (01:32→18:58)
[2020-02-14] MEDS: diphenhydrAMINE 25 MG CAP PO PRN (01:35)
[2020-02-14] MEDS: SODIUM CHLORIDE 0.9% 1000 ML 1,000 ML IV SCH ×2 (06:17→17:09)
--- NOTE | 2020-02-14 09:00 | Progress Note ---
Assessment and Plan Acute hypoxemic respiratory failure. Community-acquired pneumonia. Febrile illness, PUI for COVID-19. Mild hyponatremia. Hyperglycemia - continue to wean supplemental oxygen to keep O2 sats > 90% (remains on 50% Venti-mask) - continue airborne and contact precautions - continue Bronchodilators (CHELLY) with pulmonary hygiene per RT - repeat CXR prn limit testing as patient has a high pre-test probability for COVID-19 - follow COVID-19 result - complete empiric CAP antibiotics - prn analgesia per pain score - PT/OT as tolerated - accuchecks with glycemic control per SSI for target blood glucose < 180 mg/dL - home oxygen evaluation at discharge - GI & VTE prophylaxis - Flu & pneumovax per protocol - Pulmonary out patient follow up post discharge - continue other care per attending / other consultants - Monitor closely, low threshold for MVS if indicated PROGNOSIS: GUARDED Subjective Date of service: 02/14/20 Principal diagnosis: Ac hypoxemic resp failure; PNA (CAP); Febrile illness r/o COVID-19 Interval history: Patient is seen today for: Acute hypoxemic respiratory failure; Pneumonia (CAP); Febrile illness r/o COVID-19; Mild hyponatremia; Hyperglycemia. Seen and examined at bedside; 24hour events reviewed, vitals, medications, chart and imaging reviewed; nursing and respiratory care staff consulted; no adverse overnight events reported to me; resting in bed; continues to feel better but still SOB; remains on 50% Venturi mask. wants to know if his test results are back Objective Vital Signs - 12hr 02/13/20 02/13/20 02/13/20 21:15 21:25 22:32 Temperature 98.9 F Pulse Rate 70 Pulse Rate [ 70 Right Brachial] Respiratory 18 18 Rate Blood Pressure Blood Pressure 120/65 [Left] O2 Sat by Pulse 92 95 95 Oximetry 02/13/20 02/14/20 23:23 05:03 Temperature 99.0 F 98.5 F Pulse Rate 62 58 L Pulse Rate [ Right Brachial] Respiratory 20 20 Rate Blood Pressure 128/77 129/78 Blood Pressure [Left] O2 Sat by Pulse 96 96 Oximetry Constitutional: alert, other (middle aged male, normocephalic with mildly increased respiratory effort at rest) Eyes: non-icteric ENT: oropharynx moist Neck: supple, no lymphadenopathy, no JVD Effort: mildly labored Ascultation: Bilateral: rales (basilar predominant), rhonchi Percussion: Bilateral: not dull Cardiovascular: regular rate and rhythm Gastrointestinal: normoactive bowel sounds, soft, non-tender, non-distended Integumentary: normal Extremities: no cyanosis, no edema, pulses normal, no ischemia or petechiae Neurologic: normal mental status, non-focal exam, pupils equal and round, motor strength normal and Psychiatric: anxious (less so) CBC and BMP: 02/12/20 05:00 02/12/20 05:00 ABG, PT/INR, D-dimer: ABG ABG pH 7.470 pH Units (7.350-7.450) H 02/08/20 19:44 ABG pCO2 32.3 mm Hg 02/08/20 19:44 ABG pO2 52.7 mm Hg (80.0-90.0) L 02/08/20 19:44 ABG O2 Saturation 90.1 % (95.0-99.0) L 02/08/20 19:44 Abnormal lab findings: Abnormal Labs 02/08/20 02/08/20 02/08/20 18:49 18:49 19:44 WBC RDW 12.7 L Lymph % (Auto) 6.1 L Lymph # 0.6 L Seg Neutrophils % 88.7 H Seg Neutrophils # 9.3 H ABG pH 7.470 H ABG pO2 52.7 L ABG O2 Saturation 90.1 L Oxyhemoglobin 88.1 L Sodium 130 L Potassium Chloride 93.9 L Carbon Dioxide Creatinine 0.7 L Glucose 133 H POC Glucose Calcium 8.2 L NT-Pro-B Natriuret Pep Albumin 3.8 L 02/09/20 02/09/20 02/10/20 04:06 04:06 Unknown WBC 13.7 H RDW 12.6 L 12.7 L Lymph % (Auto) 9.7 L Lymph # 1.0 L Seg Neutrophils % 85.5 H Seg Neutrophils # 8.5 H ABG pH ABG pO2 ABG O2 Saturation Oxyhemoglobin Sodium 134 L Potassium Chloride Carbon Dioxide 21 L Creatinine Glucose 151 H POC Glucose Calcium 7.5 L NT-Pro-B Natriuret Pep Albumin 02/10/20 02/11/20 02/12/20 Unknown 14:33 05:00 WBC RDW 12.4 L Lymph % (Auto) Lymph # Seg Neutrophils % Seg Neutrophils # ABG pH ABG pO2 ABG O2 Saturation Oxyhemoglobin Sodium 134 L Potassium Chloride Carbon Dioxide 21 L Creatinine 0.5 L Glucose 123 H POC Glucose Calcium 7.6 L NT-Pro-B Natriuret Pep 464.5 H Albumin 02/12/20 02/14/20 05:00 00:05 WBC RDW Lymph % (Auto) Lymph # Seg Neutrophils % Seg Neutrophils # ABG pH ABG pO2 ABG O2 Saturation Oxyhemoglobin Sodium 135 L Potassium 3.5 L Chloride Carbon Dioxide Creatinine 0.5 L Glucose 140 H POC Glucose 119 H Calcium 7.9 L NT-Pro-B Natriuret Pep Albumin Allied health notes reviewed: nursing
[2020-02-14] MEDS: AZITHROMYCIN 250 MG TAB PO SCH (09:11)
[2020-02-14] MEDS: FAMOTIDINE 20 MG TAB PO SCH (09:12)
[2020-02-14] MEDS: ENOXAPARIN 40 MG/0.4 ML INJ SUB-Q SCH (09:12)
[2020-02-14] MEDS: cefTRIAXone/NS 2 GM/100 ML 2 GM/100 ML BAG IV SCH (09:12)
[2020-02-14 10:59] LABS: ABG Base Excess 0.3 mmol/L (-2.0-3.0); ABG HCO3 24.2 mmol/L (20.0-26.0); ABG Methemoglobin 0.6 % (0.0-1.5); ABG Oxygen Saturation 91.9 % (95.0-99.0); ABG PCO2 36.9 mm Hg; ABG PH 7.435 pH Units (7.350-7.450); ABG PO2 58.4 mm Hg (80.0-90.0)
--- NOTE | 2020-02-14 14:55 | Progress Note ---
Assessment and Plan Cultures: Blood culture 02/08/2020 Flu negative A/P: 44 yo M no PMHx admitted to the hospital with a bilateral pneumonia and being ruled out for novel coronavirus #COVID19 rule out: Pending results of [facility]. Appreciate primary team's filling out information to expediate obtaining testing. Given his symptoms I am concerned for the coronavirus. However I will continue ceftriaxone azithromycin in the meantime until testing becomes available. Continue droplet and contact precautions. #Bilateral pneumonia: Treatment as above. Recs: -Procalcitonin slightly above normal, still in keeping with viral etiology. -Continue droplet and contact precautions -Continue azithromycin and ceftriaxone, however increase ceftriaxone to 2 g daily. If discharging prior to completion of course, would discharge with cefdinir 3 mg every 12 hours to complete 5 days and starting ceftriaxone. -Follow-up [facility] testing results. - Patient may be discharged when medically stable if testing swabs have been obtained. Upon discharge patient should self-quarantine at home until COVID testing returns. If negative, self-quarantine may end. If positive patient should self-quarantine for 14 days from symptom beginning. Public health and infection prevention will follow up with patients to notify them of their test results. Patients should return to hospital regardless if they have worsening fevers or respiratory status. Thank you for the consult, will continue to follow. Hiro Nettles MD [facility] ([facility]) M: [phone] O: [phone] F: [phone] Subjective Date of service: 02/14/20 Principal diagnosis: Ac hypoxemic resp failure; PNA (CAP); Febrile illness r/o COVID-19 Interval history: Afebrile with normal white count. Still some shortness of breath, however feels much better than previously Imaging personally reviewed: Chest x-ray extensive bilateral airspace disease, worse from previous exam. Objective - Exam Narrative Exam: Physical Exam: Constitutional: Alert, cooperative. Short of breath, however currently comfortable. Neck: Supple, no meningeal signs Oral: dentition fair, no thrush Cardiovascular: S1, S2 normal. Respiratory: Bilateral rhonchi/wheezes GI: Soft, non-tender; bowel sounds normal. No peritoneal signs. Musculoskeletal: No pedal edema, no cyanosis. Skin: No rash or abscess Hem/Lymphatic: No palpable cervical or supraclavicular nodes. No lymphangitis Psych: Mood ok. Affect normal Neurological: Awake, alert, oriented. No gross abnormality - Constitutional Vitals: Vital Signs Temp Pulse Resp BP Pulse Ox 98.6 F 64 24 123/69 94 02/14/20 12:07 02/14/20 12:07 02/14/20 12:07 02/14/20 12:07 02/14/20 12:07 Temperature -Last 24 Hours Temperature 98.6 F Temperature 98.5 F Temperature 99.0 F Temperature 98.9 F Temperature 98.6 F - Labs CBC & Chem 7: 02/12/20 05:00 02/12/20 05:00 Labs: Abnormal lab results 02/14/20 02/14/20 Range/Units 00:05 Unknown ABG pO2 58.4 L (80.0-90.0) mm Hg ABG O2 Saturation 91.9 L (95.0-99.0) % Oxyhemoglobin 90.2 L (95.0-99.0) % POC Glucose 119 H (70-105)
--- NOTE | 2020-02-14 15:15 | Progress Note ---
Assessment and Plan /Bilateral pneumonia with sepsis Fever,cough,shortness of breath, tachycardia, tachypnea need to R/o COVID 19 Started IV Rocephin, azithromycin, follow cultures Consulted ID, Department of Health notified, Swab specimen sent, awaiting result Cont droplet precaution /Acute hypoxic resp failure On supplemental oxygen via Pulmonology following, nebs as needed wean off O2 as tolerated /Hyponatremia, stable /Dvt Px, scd and lovenox 02/09 Still having cough, fever. Swab specimen sent 02/08. awaiting result. 02/10 Still shortness of breath fever. On VM 50% with Fi02 50%. To f/u result of COVID test with Dept of health. 02/11 On VM 50% with Fi02 50%. To f/u result of COVID test with Dept of health. not medically stable for d/c. updated by phone 02/12 On VM 50% with Fi02 50% - unable to wean. [facility] not medically stable for d/c. 02/13 Pt On VM 50% with Fi02 50% - unable to wean. [facility] not medically stable for d/c. Brief History 44 yo M no PMHx admitted to the hospital with a bilateral pneumonia and being ru led out for novel coronavirus. Hospitalist Physical GEN: Not in acute distress, lying in bed, HEENT: Normocephalic, atraumatic, Neck: supple, No JVD Lungs: Bilateral crackles, no wheeze heart;S1 and S2 reg, no murmurs, rubs or gallop Abd:soft, non tender, non distended, normal bowel sounds Ext: No edema, no clubbing, no cyanosis, Neuro: Awake,alert,oriented x 3, no focal neuro signs Subjective Date of service: 02/14/20 Principal diagnosis: Ac hypoxemic resp failure; PNA (CAP); Febrile illness r/o COVID-19 Interval history: Pt seen and examined Still having SOB, still has cough no fever, covid 19 test result pending Objective - Constitutional Vitals: Vital Signs - 12hr 02/14/20 02/14/20 05:03 12:07 Temperature 98.5 F 98.6 F Pulse Rate 58 L 64 Respiratory 20 24 Rate Blood Pressure 129/78 123/69 O2 Sat by Pulse 96 94 Oximetry - Labs CBC & Chem 7: 02/12/20 05:00 02/12/20 05:00 Labs: Abnormal lab results 02/14/20 02/14/20 Range/Units 00:05 Unknown ABG pO2 58.4 L (80.0-90.0) mm Hg ABG O2 Saturation 91.9 L (95.0-99.0) % Oxyhemoglobin 90.2 L (95.0-99.0) % POC Glucose 119 H (70-105)
[2020-02-15] MEDS: diphenhydrAMINE 50 MG/ML VIAL IV PRN (00:23)
[2020-02-15] MEDS: oxyCODONE /ACETAMINOPHEN 5-325MG TAB PO PRN ×2 (01:56→23:36)
[2020-02-15] MEDS: SODIUM CHLORIDE 0.9% 1000 ML 1,000 ML IV SCH ×3 (01:57→22:11)
[2020-02-15] MEDS: cefTRIAXone/NS 2 GM/100 ML 2 GM/100 ML BAG IV SCH (09:17)
[2020-02-15] MEDS: FAMOTIDINE 20 MG TAB PO SCH (09:18)
[2020-02-15] MEDS: ENOXAPARIN 40 MG/0.4 ML INJ SUB-Q SCH (09:18)
--- NOTE | 2020-02-15 11:19 | Progress Note ---
Assessment and Plan Acute hypoxemic respiratory failure. Community-acquired pneumonia. Febrile illness, PUI for COVID-19. Mild hyponatremia. Hyperglycemia - continue to wean supplemental oxygen to keep O2 sats > 90% (remains on 50% Venti-mask) - continue airborne and contact precautions - continue Bronchodilators (CHELLY) with pulmonary hygiene per RT - repeat CXR prn limit testing as patient has a high pre-test probability for COVID-19 - follow COVID-19 result - complete empiric CAP antibiotics - prn analgesia per pain score - PT/OT as tolerated - accuchecks with glycemic control per SSI for target blood glucose < 180 mg/dL - home oxygen evaluation at discharge - GI & VTE prophylaxis - Flu & pneumovax per protocol - Pulmonary out patient follow up post discharge - continue other care per attending / other consultants - Monitor closely, low threshold for MVS if indicated PROGNOSIS: GUARDED Subjective Date of service: 02/15/20 Principal diagnosis: Ac hypoxemic resp failure; PNA (CAP); Febrile illness r/o COVID-19 Interval history: Patient is seen today for: Acute hypoxemic respiratory failure; Pneumonia (CAP); Febrile illness PUI COVID-19; Mild hyponatremia; Hyperglycemia. Seen and examined at bedside; 24hour events reviewed; nursing and respiratory care staff consulted; no adverse overnight events reported to me; resting in bed; continues to feel better but still SOB but improving; COVID-19 positive Objective Vital Signs - 12hr 02/14/20 02/15/20 02/15/20 23:42 01:56 06:55 Temperature 99.6 F 98.7 F Pulse Rate 66 80 Respiratory 22 18 22 Rate Blood Pressure 128/72 139/82 O2 Sat by Pulse 94 85 Oximetry 02/15/20 02/15/20 07:02 10:00 Temperature Pulse Rate Respiratory Rate Blood Pressure O2 Sat by Pulse 95 93 Oximetry Constitutional: alert, other (middle aged male, normocephalic with mildly increased respiratory effort at rest, conversational dyspnea) Eyes: non-icteric ENT: oropharynx moist Neck: supple, no lymphadenopathy, no JVD Effort: mildly labored Ascultation: Bilateral: rales (basilar predominant), rhonchi Percussion: Bilateral: not dull Cardiovascular: regular rate and rhythm Gastrointestinal: normoactive bowel sounds, soft, non-tender, non-distended Integumentary: normal Extremities: no cyanosis, no edema, pulses normal, no ischemia or petechiae Neurologic: normal mental status, non-focal exam, pupils equal and round, motor strength normal and Psychiatric: anxious (less so) CBC and BMP: 02/12/20 05:00 02/12/20 05:00 ABG, PT/INR, D-dimer: ABG ABG pH 7.435 pH Units (7.350-7.450) 02/14/20 Unknown ABG pCO2 36.9 mm Hg 02/14/20 Unknown ABG pO2 58.4 mm Hg (80.0-90.0) L 02/14/20 Unknown ABG O2 Saturation 91.9 % (95.0-99.0) L 02/14/20 Unknown Abnormal lab findings: Abnormal Labs 02/08/20 02/08/20 02/08/20 18:49 18:49 19:44 WBC RDW 12.7 L Lymph % (Auto) 6.1 L Lymph # 0.6 L Seg Neutrophils % 88.7 H Seg Neutrophils # 9.3 H ABG pH 7.470 H ABG pO2 52.7 L ABG O2 Saturation 90.1 L Oxyhemoglobin 88.1 L Sodium 130 L Potassium Chloride 93.9 L Carbon Dioxide Creatinine 0.7 L Glucose 133 H POC Glucose Calcium 8.2 L NT-Pro-B Natriuret Pep Albumin 3.8 L 02/09/20 02/09/20 02/10/20 04:06 04:06 Unknown WBC 13.7 H RDW 12.6 L 12.7 L Lymph % (Auto) 9.7 L Lymph # 1.0 L Seg Neutrophils % 85.5 H Seg Neutrophils # 8.5 H ABG pH ABG pO2 ABG O2 Saturation Oxyhemoglobin Sodium 134 L Potassium Chloride Carbon Dioxide 21 L Creatinine Glucose 151 H POC Glucose Calcium 7.5 L NT-Pro-B Natriuret Pep Albumin 02/10/20 02/11/20 02/12/20 Unknown 14:33 05:00 WBC RDW 12.4 L Lymph % (Auto) Lymph # Seg Neutrophils % Seg Neutrophils # ABG pH ABG pO2 ABG O2 Saturation Oxyhemoglobin Sodium 134 L Potassium Chloride Carbon Dioxide 21 L Creatinine 0.5 L Glucose 123 H POC Glucose Calcium 7.6 L NT-Pro-B Natriuret Pep 464.5 H Albumin 02/12/20 02/14/20 02/14/20 05:00 00:05 Unknown WBC RDW Lymph % (Auto) Lymph # Seg Neutrophils % Seg Neutrophils # ABG pH ABG pO2 58.4 L ABG O2 Saturation 91.9 L Oxyhemoglobin 90.2 L Sodium 135 L Potassium 3.5 L Chloride Carbon Dioxide Creatinine 0.5 L Glucose 140 H POC Glucose 119 H Calcium 7.9 L NT-Pro-B Natriuret Pep Albumin Allied health notes reviewed: nursing
--- NOTE | 2020-02-15 11:36 | Progress Note ---
Assessment and Plan Cultures: Blood culture 02/08/2020 Flu negative A/P: 44 yo M no PMHx admitted to the hospital with a bilateral pneumonia and being ruled out for novel coronavirus #COVID19 positive: results returned today, patient has COVID-19. I have started Plaquenil 400mg q12h for 2 doses to be followed by 200mg q12h for 12 doses. #Bilateral pneumonia: Treatment as above. Recs: -Continue droplet and contact precautions -stopped antibiotics -Started Plaquenil 400mg q12h for 2 doses to be followed by 200mg q12h for 12 doses. - Patient may be discharged when medically stable. Patient should self- quarantine for 14 days from symptom beginning. He should return to hospital if he has worsening SOB or fevers, or other symptoms. Complete Plaquenil at home. Thank you for the consult, will continue to follow. Hiro Nettles MD [facility] ([facility]) M: [phone] O: [phone] F: [phone] Subjective Date of service: 02/15/20 Principal diagnosis: Ac hypoxemic resp failure; PNA (CAP); Febrile illness r/o COVID-19 Interval history: Afebrile with normal white count. Normal white count at this time. COVID-19 returned as positive. Objective - Exam Narrative Exam: Physical Exam: Constitutional: Alert, cooperative. Mildly short of breath Neck: Supple, no meningeal signs Oral: dentition fair, no thrush Cardiovascular: S1, S2 normal. Respiratory: Bilateral rhonchi/wheezes GI: Soft, non-tender; bowel sounds normal. No peritoneal signs. Musculoskeletal: No pedal edema, no cyanosis. Skin: No rash or abscess Hem/Lymphatic: No palpable cervical or supraclavicular nodes. No lymphangitis Psych: Mood ok. Affect normal Neurological: Awake, alert, oriented. No gross abnormality - Constitutional Vitals: Vital Signs Temp Pulse Resp BP Pulse Ox 98.7 F 80 22 139/82 93 02/15/20 06:55 02/15/20 06:55 02/15/20 06:55 02/15/20 06:55 02/15/20 10:00 Temperature -Last 24 Hours Temperature 98.7 F Temperature 99.6 F Temperature 98.3 F Temperature 98.6 F - Labs CBC & Chem 7: 02/12/20 05:00 02/12/20 05:00
[2020-02-15] MEDS: HYDROXYCHLOROQUINE 200 MG TAB PO SCH ×2 (12:14→23:36)
--- NOTE | 2020-02-15 12:24 | Progress Note ---
Assessment and Plan /Bilateral pneumonia with COVID 19 presented with Fever,cough,shortness of breath, tachycardia, tachypnea Started Plaquenil 400mg q12h for 2 doses to be followed by 200mg q12h for 12 doses. Consulted ID, Department of Health notified, Cont droplet precaution /Sepsis due to b/l PNA with COVID 19 - ID following, cont Plaquenil 400mg q12h for 2 doses to be followed by 200mg q12h for 12 doses. /Acute hypoxic resp failure On supplemental oxygen via Pulmonology following, nebs as needed wean off O2 as tolerated /Hyponatremia, stable /Dvt Px, scd and lovenox 02/09 Still having cough, fever. Swab specimen sent 02/08. awaiting result. 02/10 Still shortness of breath fever. On VM 50% with Fi02 50%. To f/u result of COVID test with [facility]. 02/11 On VM 50% with Fi02 50%. To f/u result of COVID test with Dept [facility]. not medically stable for d/c. updated by phone 02/12 On VM 50% with Fi02 50% - unable to wean. To f/u result of COVID test with Dept [facility] health. not medically stable for d/c. 02/13 Patient On VM 50% with Fi02 50% - unable to wean. To f/u result of COVID test with Dept [facility] health. not medically stable for d/c. 02/14 Test result came positive for COVID 19, started on Plaquenil Brief History 44 yo M no PMHx admitted to the hospital with a bilateral pneumonia and being ruled out for novel coronavirus. Hospitalist Physical Vitals noted GEN: Not in acute distress, lying in bed, HEENT: Normocephalic, atraumatic, Lungs: no audible wheeze heart;S1 and S2 reg, no murmurs, rubs or gallop Ext: No edema, no clubbing, no cyanosis, Neuro: Awake,alert,oriented x 3, no focal neuro signs Subjective Date of service: 02/15/20 Principal diagnosis: Ac hypoxemic resp failure; PNA (CAP); Febrile illness r/o COVID-19 Interval history: Pt seen and examined Still having SOB, still has cough no fever, covid 19 test result positive Answered all question at the bedside and by phone Objective - Constitutional Vitals: Vital Signs - 12hr 02/15/20 02/15/20 02/15/20 01:56 06:55 07:02 Temperature 98.7 F Pulse Rate 80 Respiratory 18 22 Rate Blood Pressure 139/82 O2 Sat by Pulse 85 95 Oximetry 02/15/20 10:00 Temperature Pulse Rate Respiratory Rate Blood Pressure O2 Sat by Pulse 93 Oximetry - Labs CBC & Chem 7: 02/12/20 05:00 02/12/20 05:00
[2020-02-15] MEDS: diphenhydrAMINE 25 MG CAP PO PRN (23:36)
[2020-02-16] MEDS: oxyCODONE /ACETAMINOPHEN 5-325MG TAB PO PRN ×2 (09:26→20:56)
[2020-02-16] MEDS: ENOXAPARIN 40 MG/0.4 ML INJ SUB-Q SCH (09:27)
[2020-02-16] MEDS: FAMOTIDINE 20 MG TAB PO SCH (09:27)
[2020-02-16] MEDS: SODIUM CHLORIDE 0.9% 1000 ML 1,000 ML IV SCH ×2 (09:27→21:06)
[2020-02-16] MEDS: HYDROXYCHLOROQUINE 200 MG TAB PO SCH ×3 (09:27→22:16)
--- NOTE | 2020-02-16 13:31 | Progress Note ---
Assessment and Plan Acute hypoxemic respiratory failure. Community-acquired pneumonia. Febrile illness, rule out COVID-19. Mild hyponatremia. Hyperglycemia - clinically looks better - COVID-19 result positive - continue qhs BIPAP as tolerated for alveolar recruitment - continue to wean supplemental oxygen to keep O2 sats > 90% (on 50% Venti-mask) - continue airborne and contact precautions - continue Bronchodilators (CHELLY) with pulm hygiene per RT - repeat CXR prn - complete empiric CAP antibiotics - prn analgesia per pain score - continue mobility protocols to prevent pressure ulcers - PT/OT as tolerated - accuchecks with glycemic control per SSI for target blood glucose < 180 mg/dL - home oxygen evaluation at discharge - GI & VTE prophylaxis - Flu & pneumovax per protocol - Pulmonary out patient follow up post discharge - continue other care per attending / other consultants - watch closely ... re-evaluate in am & prn PROGNOSIS: GUARDED Subjective Date of service: 02/16/20 Principal diagnosis: Ac hypoxemic resp failure; PNA (CAP); COVID-19 positive Interval history: Patient is seen today for: Acute hypoxemic respiratory failure; Pneumonia (CAP); Febrile illness r/o COVID-19; Mild hyponatremia; Hyperglycemia. Seen and examined at bedside; 24hour events reviewed; nursing and respiratory care staff consulted; no adverse overnight events reported to me; resting in bed; remains on 50% FiO2 and still with coughing spells Objective Vital Signs - 12hr 02/16/20 02/16/20 03:11 06:53 Temperature 98.6 F Pulse Rate 70 Respiratory 20 Rate Blood Pressure 127/78 [Left] O2 Sat by Pulse 92 93 Oximetry Constitutional: alert, other (middle aged male, normocephalic with mildly increased respiratory effort at rest, conversational dyspnea) Eyes: non-icteric ENT: oropharynx moist Neck: supple, no lymphadenopathy, no JVD Effort: mildly labored Ascultation: Bilateral: rales (scant; basilar predominant) Percussion: Bilateral: not dull Cardiovascular: regular rate and rhythm Gastrointestinal: normoactive bowel sounds, soft, non-tender, non-distended Integumentary: normal Extremities: no cyanosis, no edema, pulses normal, no ischemia or petechiae Neurologic: normal mental status, non-focal exam, pupils equal and round, motor strength normal and Psychiatric: mood appropriate, affect normal CBC and BMP: 02/12/20 05:00 02/12/20 05:00 ABG, PT/INR, D-dimer: ABG ABG pH 7.435 pH Units (7.350-7.450) 02/14/20 Unknown ABG pCO2 36.9 mm Hg 02/14/20 Unknown ABG pO2 58.4 mm Hg (80.0-90.0) L 02/14/20 Unknown ABG O2 Saturation 91.9 % (95.0-99.0) L 02/14/20 Unknown Abnormal lab findings: Abnormal Labs 02/08/20 02/08/20 02/08/20 18:49 18:49 19:44 WBC RDW 12.7 L Lymph % (Auto) 6.1 L Lymph # 0.6 L Seg Neutrophils % 88.7 H Seg Neutrophils # 9.3 H ABG pH 7.470 H ABG pO2 52.7 L ABG O2 Saturation 90.1 L Oxyhemoglobin 88.1 L Sodium 130 L Potassium Chloride 93.9 L Carbon Dioxide Creatinine 0.7 L Glucose 133 H POC Glucose Calcium 8.2 L NT-Pro-B Natriuret Pep Albumin 3.8 L 02/09/20 02/09/20 02/10/20 04:06 04:06 Unknown WBC 13.7 H RDW 12.6 L 12.7 L Lymph % (Auto) 9.7 L Lymph # 1.0 L Seg Neutrophils % 85.5 H Seg Neutrophils # 8.5 H ABG pH ABG pO2 ABG O2 Saturation Oxyhemoglobin Sodium 134 L Potassium Chloride Carbon Dioxide 21 L Creatinine Glucose 151 H POC Glucose Calcium 7.5 L NT-Pro-B Natriuret Pep Albumin 02/10/20 02/11/20 02/12/20 Unknown 14:33 05:00 WBC RDW 12.4 L Lymph % (Auto) Lymph # Seg Neutrophils % Seg Neutrophils # ABG pH ABG pO2 ABG O2 Saturation Oxyhemoglobin Sodium 134 L Potassium Chloride Carbon Dioxide 21 L Creatinine 0.5 L Glucose 123 H POC Glucose Calcium 7.6 L NT-Pro-B Natriuret Pep 464.5 H Albumin 02/12/20 02/14/20 02/14/20 05:00 00:05 Unknown WBC RDW Lymph % (Auto) Lymph # Seg Neutrophils % Seg Neutrophils # ABG pH ABG pO2 58.4 L ABG O2 Saturation 91.9 L Oxyhemoglobin 90.2 L Sodium 135 L Potassium 3.5 L Chloride Carbon Dioxide Creatinine 0.5 L Glucose 140 H POC Glucose 119 H Calcium 7.9 L NT-Pro-B Natriuret Pep Albumin Chest x-ray: pending Allied health notes reviewed: nursing
--- NOTE | 2020-02-16 15:27 | Progress Note ---
Assessment and Plan /Bilateral pneumonia with COVID 19 presented with Fever,cough,shortness of breath, tachycardia, tachypnea Started Plaquenil 400mg q12h for 2 doses to be followed by 200mg q12h for 12 doses. Consulted ID, Department of Health notified, Cont droplet precaution /Sepsis due to b/l PNA with COVID 19 - ID following, cont Plaquenil 400mg q12h for 2 doses to be followed by 200mg q12h for 12 doses. /Acute hypoxic resp failure On supplemental oxygen via Pulmonology following, nebs as needed wean off O2 as tolerated /Hyponatremia, stable /Dvt Px, scd and lovenox 02/09 Still having cough, fever. Swab specimen sent 02/08. awaiting result. 02/10 Still shortness of breath fever. On VM 50% with Fi02 50%. To f/u result of COVID test with Dept of health. 02/11 On VM 50% with Fi02 50%. To f/u result of COVID test with Dept of health. not medically stable for d/c. updated by phone 02/12 On VM 50% with Fi02 50% - unable to wean. To f/u result of COVID test with Dept of health. not medically stable for d/c. 02/13 Patient On VM 50% with Fi02 50% - unable to wean. To f/u result of COVID test with Dept of health. not medically stable for d/c. 02/14 Test result came positive for COVID 19, started on Plaquenil 02/15 continue Plaquenil and wean off from O2 as tolerated Brief History 44 yo M no PMHx admitted to the hospital with a bilateral pneumonia and being ruled out for novel coronavirus. Hospitalist Physical Vitals noted GEN: Not in acute distress, lying in bed, HEENT: Normocephalic, atraumatic, Lungs: no audible wheeze heart;S1 and S2 reg, no murmurs, rubs or gallop Ext: No edema, no clubbing, no cyanosis, Neuro: Awake,alert,oriented x 3, no focal neuro signs Subjective Date of service: 02/16/20 Principal diagnosis: Ac hypoxemic resp failure; PNA (CAP); Febrile illness r/o COVID-19 Interval history: Pt seen and examined Still having SOB, still has cough no fever, covid 19 test result positive Answered all question at the bedside and by phone Objective - Constitutional Vitals: Vital Signs - 12hr 02/16/20 06:53 Temperature 98.6 F Pulse Rate 70 Respiratory 20 Rate Blood Pressure 127/78 [Left] O2 Sat by Pulse 93 Oximetry - Labs CBC & Chem 7: 02/12/20 05:00 02/12/20 05:00
[2020-02-16] MEDS: guaiFENesin ER 600 MG TAB PO SCH ×2 (20:55→22:14)
[2020-02-17] MEDS: oxyCODONE /ACETAMINOPHEN 5-325MG TAB PO PRN ×2 (06:26→21:21)
[2020-02-17] MEDS: diphenhydrAMINE 25 MG CAP PO PRN ×2 (06:27→21:21)
[2020-02-17] MEDS: SODIUM CHLORIDE 0.9% 1000 ML 1,000 ML IV SCH ×2 (06:31→17:03)
[2020-02-17] MEDS: FAMOTIDINE 20 MG TAB PO SCH (10:48)
[2020-02-17] MEDS: HYDROXYCHLOROQUINE 200 MG TAB PO SCH ×2 (10:48→21:21)
[2020-02-17] MEDS: guaiFENesin ER 600 MG TAB PO SCH ×2 (10:48→21:21)
[2020-02-17] MEDS: ENOXAPARIN 40 MG/0.4 ML INJ SUB-Q SCH (10:48)
--- NOTE | 2020-02-17 13:34 | Progress Note ---
Assessment and Plan Acute hypoxemic respiratory failure. Community-acquired pneumonia. Febrile illness, rule out COVID-19. Mild hyponatremia. Hyperglycemia - get ABG tomorrow - clinically looks better (tentatively discharge to self quarantine once FiO2 </= 32%) - COVID-19 result positive - continue qhs BIPAP as tolerated for alveolar recruitment (encouraged better compliance) - continue to wean supplemental oxygen to keep O2 sats > 90% (on 50% Venti-mask) - continue airborne and contact precautions - continue Bronchodilators (CHELLY) with pulm hygiene per RT - repeat CXR prn - completed empiric CAP antibiotics - prn analgesia per pain score - continue mobility protocols to prevent pressure ulcers - PT/OT as tolerated - accuchecks with glycemic control per SSI for target blood glucose < 180 mg/dL - home oxygen evaluation at discharge - GI & VTE prophylaxis - Flu & pneumovax per protocol - Pulmonary out patient follow up post discharge - continue other care per attending / other consultants - watch closely ... re-evaluate in am & prn PROGNOSIS: GUARDED Subjective Date of service: 02/17/20 Principal diagnosis: Ac hypoxemic resp failure; PNA (CAP); COVID-19 positive Interval history: Patient is seen today for: Acute hypoxemic respiratory failure; Pneumonia (CAP); Febrile illness r/o COVID-19; Mild hyponatremia; Hyperglycemia. Seen and examined at bedside; 24hour events reviewed; nursing and respiratory care staff consulted; no adverse overnight events reported to me; resting in bed; remains on 50% FiO2 but some room to wean; still with coughing spells Objective Vital Signs - 12hr 02/17/20 02/17/20 02/17/20 06:32 09:49 11:38 Temperature 98.5 F 99.1 F Pulse Rate 87 75 Respiratory 24 28 H Rate Blood Pressure 119/75 Blood Pressure 125/70 [Left] O2 Sat by Pulse 98 88 90 Oximetry Constitutional: alert, other (middle aged male, normocephalic with mildly increased respiratory effort at rest, conversational dyspnea) Eyes: non-icteric ENT: oropharynx moist Neck: supple, no lymphadenopathy, no JVD Effort: mildly labored Ascultation: Bilateral: rales (much improved) Percussion: Bilateral: not dull Cardiovascular: regular rate and rhythm Gastrointestinal: normoactive bowel sounds, soft, non-tender, non-distended Integumentary: normal Extremities: no cyanosis, no edema, pulses normal, no ischemia or petechiae Neurologic: normal mental status, non-focal exam, pupils equal and round, motor strength normal and Psychiatric: mood appropriate, affect normal CBC and BMP: 02/12/20 05:00 02/12/20 05:00 ABG, PT/INR, D-dimer: ABG ABG pH 7.435 pH Units (7.350-7.450) 02/14/20 Unknown ABG pCO2 36.9 mm Hg 02/14/20 Unknown ABG pO2 58.4 mm Hg (80.0-90.0) L 02/14/20 Unknown ABG O2 Saturation 91.9 % (95.0-99.0) L 02/14/20 Unknown Abnormal lab findings: Abnormal Labs 02/08/20 02/08/20 02/08/20 18:49 18:49 19:44 WBC RDW 12.7 L Lymph % (Auto) 6.1 L Lymph # 0.6 L Seg Neutrophils % 88.7 H Seg Neutrophils # 9.3 H ABG pH 7.470 H ABG pO2 52.7 L ABG O2 Saturation 90.1 L Oxyhemoglobin 88.1 L Sodium 130 L Potassium Chloride 93.9 L Carbon Dioxide Creatinine 0.7 L Glucose 133 H POC Glucose Calcium 8.2 L NT-Pro-B Natriuret Pep Albumin 3.8 L 02/09/20 02/09/20 02/10/20 04:06 04:06 Unknown WBC 13.7 H RDW 12.6 L 12.7 L Lymph % (Auto) 9.7 L Lymph # 1.0 L Seg Neutrophils % 85.5 H Seg Neutrophils # 8.5 H ABG pH ABG pO2 ABG O2 Saturation Oxyhemoglobin Sodium 134 L Potassium Chloride Carbon Dioxide 21 L Creatinine Glucose 151 H POC Glucose Calcium 7.5 L NT-Pro-B Natriuret Pep Albumin 02/10/20 02/11/20 02/12/20 Unknown 14:33 05:00 WBC RDW 12.4 L Lymph % (Auto) Lymph # Seg Neutrophils % Seg Neutrophils # ABG pH ABG pO2 ABG O2 Saturation Oxyhemoglobin Sodium 134 L Potassium Chloride Carbon Dioxide 21 L Creatinine 0.5 L Glucose 123 H POC Glucose Calcium 7.6 L NT-Pro-B Natriuret Pep 464.5 H Albumin 02/12/20 02/14/20 02/14/20 05:00 00:05 Unknown WBC RDW Lymph % (Auto) Lymph # Seg Neutrophils % Seg Neutrophils # ABG pH ABG pO2 58.4 L ABG O2 Saturation 91.9 L Oxyhemoglobin 90.2 L Sodium 135 L Potassium 3.5 L Chloride Carbon Dioxide Creatinine 0.5 L Glucose 140 H POC Glucose 119 H Calcium 7.9 L NT-Pro-B Natriuret Pep Albumin Allied health notes reviewed: nursing
--- NOTE | 2020-02-17 14:35 | Progress Note ---
Assessment and Plan /Bilateral pneumonia with COVID 19 presented with Fever,cough,shortness of breath, tachycardia, tachypnea Started Plaquenil 400mg q12h for 2 doses to be followed by 200mg q12h for 12 doses. Consulted ID, Department of Health notified, Cont droplet precaution /Sepsis due to b/l PNA with COVID 19 - ID following, cont Plaquenil 400mg q12h for 2 doses to be followed by 200mg q12h for 12 doses. /Acute hypoxic resp failure On supplemental oxygen via Pulmonology following, nebs as needed wean off O2 as tolerated /Hyponatremia, stable /Dvt Px, scd and lovenox 02/09 Still having cough, fever. Swab specimen sent 02/08. awaiting result. 02/10 Still shortness of breath fever. On VM 50% with Fi02 50%. To f/u result of COVID test with Dept of health. 02/11 On VM 50% with Fi02 50%. To f/u result of COVID test with Dept of health. not medically stable for d/c. updated by phone 02/12 On VM 50% with Fi02 50% - unable to wean. To f/u result of COVID test with Dept of health. not medically stable for d/c. 02/13 Patient On VM 50% with Fi02 50% - unable to wean. To f/u result of COVID test with Dept of health. not medically stable for d/c. 02/14 Test result came positive for COVID 19, started on Plaquenil 02/15 continue Plaquenil and wean off from O2 as tolerated 02/16 continue Plaquenil and wean off from O2 as tolerated Brief History 44 yo M no PMHx admitted to the hospital with a bilateral pneumonia and being ruled out for novel coronavirus. Hospitalist Physical Vitals noted GEN: Not in acute distress, lying in bed, HEENT: Normocephalic, atraumatic, Lungs: no audible wheeze heart;S1 and S2 reg, no murmurs, rubs or gallop Ext: No edema, no clubbing, no cyanosis, Neuro: Awake,alert,oriented x 3, no focal neuro signs Subjective Date of service: 02/17/20 Principal diagnosis: Ac hypoxemic resp failure; PNA (CAP); Febrile illness r/o COVID-19 Interval history: Pt seen and examined Still having SOB, still has cough no fever, covid 19 test result positive Answered all question at the bedside Unable to wean off from supplemental O2, remains on 50% FiO2 on Ventimask Objective - Constitutional Vitals: Vital Signs - 12hr 02/17/20 02/17/20 02/17/20 06:32 09:49 11:38 Temperature 98.5 F 99.1 F Pulse Rate 87 75 Respiratory 24 28 H Rate Blood Pressure 119/75 Blood Pressure 125/70 [Left] O2 Sat by Pulse 98 88 90 Oximetry - Labs CBC & Chem 7: 02/12/20 05:00 02/12/20 05:00
[2020-02-18] MEDS: SODIUM CHLORIDE 0.9% 1000 ML 1,000 ML IV SCH ×2 (02:38→14:25)
[2020-02-18] MEDS: oxyCODONE /ACETAMINOPHEN 5-325MG TAB PO PRN (05:44)
[2020-02-18] MEDS: guaiFENesin ER 600 MG TAB PO SCH ×2 (09:00→22:00)
[2020-02-18] MEDS: HYDROXYCHLOROQUINE 200 MG TAB PO SCH ×2 (09:00→22:01)
[2020-02-18] MEDS: FAMOTIDINE 20 MG TAB PO SCH (09:00)
[2020-02-18] MEDS: ENOXAPARIN 40 MG/0.4 ML INJ SUB-Q SCH (09:00)
[2020-02-18 11:50] LABS: ABG Base Excess 2.1 mmol/L (-2.0-3.0); ABG HCO3 26.8 mmol/L (20.0-26.0); ABG Methemoglobin 0.6 % (0.0-1.5); ABG PCO2 42.2 mm Hg; ABG PH 7.421 pH Units (7.350-7.450); ABG PO2 50.6 mm Hg (80.0-90.0)
--- NOTE | 2020-02-18 12:34 | Progress Note ---
Assessment and Plan Acute hypoxemic respiratory failure. Community-acquired pneumonia. Febrile illness, Positivefor COVID-19. Mild hyponatremia. Hyperglycemia - continue to wean supplemental oxygen to keep O2 sats > 90% (remains on 50% Venti-mask) - continue airborne and contact precautions - continue Bronchodilators (CHELLY) with pulmonary hygiene per RT - repeat CXR prn limit testing as patient has a high pre-test probability for COVID-19 - follow COVID-19 result - complete empiric CAP antibiotics - prn analgesia per pain score - PT/OT as tolerated - accuchecks with glycemic control per SSI for target blood glucose < 180 mg/dL - home oxygen evaluation at discharge - GI & VTE prophylaxis - Flu & pneumovax per protocol - Pulmonary out patient follow up post discharge - continue other care per attending / other consultants - Monitor closely, low threshold for MVS if indicated Subjective Date of service: 02/18/20 Principal diagnosis: Ac hypoxemic resp failure; PNA (CAP); Febrile illness r/o COVID-19 Interval history: Patient is seen today for: Acute hypoxemic respiratory failure; Pneumonia (CAP); Febrile illness PUI COVID-19; Mild hyponatremia; Hyperglycemia. Seen and examined at bedside; 24hour events reviewed; nursing and respiratory care staff consulted; no adverse overnight events reported to me; resting in bed; continues to feel better but still SOB but improving; COVID-19 positive Objective Vital Signs - 12hr 02/18/20 02/18/20 00:35 05:24 Temperature 99.0 F Pulse Rate 80 Respiratory 20 Rate Blood Pressure 122/77 O2 Sat by Pulse 92 90 Oximetry Constitutional: alert, other (middle aged male, normocephalic with mildly increased respiratory effort at rest, conversational dyspnea) Eyes: non-icteric ENT: oropharynx moist Neck: supple, no lymphadenopathy, no JVD Effort: mildly labored Ascultation: Bilateral: rales (much improved), rhonchi Percussion: Bilateral: not dull Cardiovascular: regular rate and rhythm Gastrointestinal: normoactive bowel sounds, soft, non-tender, non-distended Integumentary: normal Extremities: no cyanosis, no edema, pulses normal, no ischemia or petechiae Neurologic: normal mental status, non-focal exam, pupils equal and round, motor strength normal and Psychiatric: mood appropriate, affect normal CBC and BMP: 02/12/20 05:00 02/12/20 05:00 ABG, PT/INR, D-dimer: ABG ABG pH 7.421 pH Units (7.350-7.450) 02/18/20 11:25 ABG pCO2 42.2 mm Hg 02/18/20 11:25 ABG pO2 50.6 mm Hg (80.0-90.0) L 02/18/20 11:25 ABG O2 Saturation 88.0 % (95.0-99.0) L 02/18/20 11:25 Abnormal lab findings: Abnormal Labs 02/08/20 02/08/20 02/08/20 18:49 18:49 19:44 WBC RDW 12.7 L Lymph % (Auto) 6.1 L Lymph # 0.6 L Seg Neutrophils % 88.7 H Seg Neutrophils # 9.3 H ABG pH 7.470 H ABG pO2 52.7 L ABG HCO3 ABG O2 Saturation 90.1 L Oxyhemoglobin 88.1 L Sodium 130 L Potassium Chloride 93.9 L Carbon Dioxide Creatinine 0.7 L Glucose 133 H POC Glucose Calcium 8.2 L NT-Pro-B Natriuret Pep Albumin 3.8 L 02/09/20 02/09/20 02/10/20 04:06 04:06 Unknown WBC 13.7 H RDW 12.6 L 12.7 L Lymph % (Auto) 9.7 L Lymph # 1.0 L Seg Neutrophils % 85.5 H Seg Neutrophils # 8.5 H ABG pH ABG pO2 ABG HCO3 ABG O2 Saturation Oxyhemoglobin Sodium 134 L Potassium Chloride Carbon Dioxide 21 L Creatinine Glucose 151 H POC Glucose Calcium 7.5 L NT-Pro-B Natriuret Pep Albumin 02/10/20 02/11/20 02/12/20 Unknown 14:33 05:00 WBC RDW 12.4 L Lymph % (Auto) Lymph # Seg Neutrophils % Seg Neutrophils # ABG pH ABG pO2 ABG HCO3 ABG O2 Saturation Oxyhemoglobin Sodium 134 L Potassium Chloride Carbon Dioxide 21 L Creatinine 0.5 L Glucose 123 H POC Glucose Calcium 7.6 L NT-Pro-B Natriuret Pep 464.5 H Albumin 02/12/20 02/14/20 02/14/20 05:00 00:05 Unknown WBC RDW Lymph % (Auto) Lymph # Seg Neutrophils % Seg Neutrophils # ABG pH ABG pO2 58.4 L ABG HCO3 ABG O2 Saturation 91.9 L Oxyhemoglobin 90.2 L Sodium 135 L Potassium 3.5 L Chloride Carbon Dioxide Creatinine 0.5 L Glucose 140 H POC Glucose 119 H Calcium 7.9 L NT-Pro-B Natriuret Pep Albumin 02/18/20 11:25 WBC RDW Lymph % (Auto) Lymph # Seg Neutrophils % Seg Neutrophils # ABG pH ABG pO2 50.6 L ABG HCO3 26.8 H ABG O2 Saturation 88.0 L Oxyhemoglobin 86.3 L Sodium Potassium Chloride Carbon Dioxide Creatinine Glucose POC Glucose Calcium NT-Pro-B Natriuret Pep Albumin Allied health notes reviewed: nursing
--- NOTE | 2020-02-18 13:28 | Progress Note ---
Assessment and Plan /Bilateral pneumonia with COVID 19 presented with Fever,cough,shortness of breath, tachycardia, tachypnea Started Plaquenil 400mg q12h for 2 doses to be followed by 200mg q12h for 12 doses. Consulted ID, Department of Health notified, Cont droplet precaution /Sepsis due to b/l PNA with COVID 19 - ID following, cont Plaquenil 400mg q12h for 2 doses to be followed by 200mg q12h for 12 doses. /Acute hypoxic resp failure On supplemental oxygen via Pulmonology following, nebs as needed wean off O2 as tolerated /Hyponatremia, stable /Dvt Px, scd and lovenox 02/09 Still having cough, fever. Swab specimen sent 02/08. awaiting result. 02/10 Still shortness of breath fever. On VM 50% with Fi02 50%. To f/u result of COVID test with Dept of health. 02/11 On VM 50% with Fi02 50%. To f/u result of COVID test with Dept of health. not medically stable for d/c. updated by phone 02/12 On VM 50% with Fi02 50% - unable to wean. To f/u result of COVID test with Dept of health. not medically stable for d/c. 02/13 Patient On VM 50% with Fi02 50% - unable to wean. [facility] not medically stable for d/c. 02/14 Test result came positive for COVID 19, started on Plaquenil 02/15 continue Plaquenil and wean off from O2 as tolerated 02/16 continue Plaquenil and wean off from O2 as tolerated 02/17 called his - who is very panic and frustrated. Explained that COVID 19 has no cure discovered, plaquenil has been initiated. also advised for all family members to get tested Brief History 44 yo M no PMHx admitted to the hospital with a bilateral pneumonia and being ruled out for novel coronavirus. Hospitalist Physical Vitals noted GEN: Not in acute distress, lying in bed, HEENT: Normocephalic, atraumatic, Lungs: no audible wheeze, on 50% venti mask heart;S1 and S2 reg, no murmurs, rubs or gallop Ext: No edema, no clubbing, no cyanosis, Neuro: Awake,alert,oriented x 3, no focal neuro signs Subjective Date of service: 02/18/20 Principal diagnosis: Ac hypoxemic resp failure; PNA (CAP); Febrile illness r/o COVID-19 Interval history: Pt seen and examined Still having SOB, still has cough no fever, covid 19 test result positive Answered all question at the bedside Unable to wean off from supplemental O2, remains on 50% FiO2 on Ventimask Objective - Constitutional Vitals: Vital Signs - 12hr 02/18/20 02/18/20 02/18/20 05:24 10:00 12:02 Temperature 99.0 F 99.4 F Pulse Rate 80 78 Respiratory 20 28 H Rate Blood Pressure 122/77 121/77 O2 Sat by Pulse 90 87 92 Oximetry - Labs CBC & Chem 7: 02/12/20 05:00 02/12/20 05:00 Labs: Abnormal lab results 02/18/20 Range/Units 11:25 ABG pO2 50.6 L (80.0-90.0) mm Hg ABG HCO3 26.8 H (20.0-26.0) mmol/L ABG O2 Saturation 88.0 L (95.0-99.0) % Oxyhemoglobin 86.3 L (95.0-99.0) %
--- NOTE | 2020-02-18 15:35 | Progress Note ---
Assessment and Plan Cultures: Blood culture 02/08/2020 Flu negative A/P: 44 yo M no PMHx admitted to the hospital with a bilateral pneumonia and being ruled out for novel coronavirus #COVID19 positive: results returned today, patient has COVID-19. I have started Plaquenil 400mg q12h for 2 doses to be followed by 200mg q12h for 12 doses. #Bilateral pneumonia: Treatment as above. Recs: -Continue droplet and contact precautions -stopped antibiotics -Started Plaquenil 400mg q12h for 2 doses to be followed by 200mg q12h for 12 doses. - Patient may be discharged when medically stable. Patient should self- quarantine for 14 days from symptom beginning. He should return to hospital if he has worsening SOB or fevers, or other symptoms. Complete Plaquenil at home. Thank you for the consult, will sign off. please call with questions Hiro Nettles MD [facility] ([facility]) M: [phone] O: [phone] F: [phone] Subjective Date of service: 02/18/20 Principal diagnosis: Ac hypoxemic resp failure; PNA (CAP); Febrile illness r/o COVID-19 Interval history: Afebrile with a normal white count. Objective - Exam Narrative Exam: Physical Exam: Constitutional: Alert, cooperative. Mildly short of breath Oral: dentition fair, no thrush Cardiovascular: S1, S2 normal. Respiratory: Bilateral rhonchi/wheezes GI: Soft, non-tender; bowel sounds normal. No peritoneal signs. Musculoskeletal: No pedal edema, no cyanosis. Skin: No rash or abscess Hem/Lymphatic: No palpable cervical or supraclavicular nodes. No lymphangitis Psych: Mood ok. Affect normal Neurological: Awake, alert, oriented. No gross abnormality - Constitutional Vitals: Vital Signs Temp Pulse Resp BP Pulse Ox 99.4 F 78 28 H 121/77 92 02/18/20 12:02 02/18/20 12:02 02/18/20 12:02 02/18/20 12:02 02/18/20 12:02 Temperature -Last 24 Hours Temperature 99.4 F Temperature 99.0 F Temperature 99.6 F Temperature 99.7 F - Labs CBC & Chem 7: 02/12/20 05:00 02/12/20 05:00 Labs: Abnormal lab results 02/18/20 Range/Units 11:25 ABG pO2 50.6 L (80.0-90.0) mm Hg ABG HCO3 26.8 H (20.0-26.0) mmol/L ABG O2 Saturation 88.0 L (95.0-99.0) % Oxyhemoglobin 86.3 L (95.0-99.0) %
[2020-02-19] MEDS: SODIUM CHLORIDE 0.9% 1000 ML 1,000 ML IV SCH ×2 (00:17→09:44)
[2020-02-19] MEDS: oxyCODONE /ACETAMINOPHEN 5-325MG TAB PO PRN ×2 (00:17→21:56)
[2020-02-19] MEDS: diphenhydrAMINE 25 MG CAP PO PRN ×2 (00:17→22:10)
[2020-02-19] MEDS: ENOXAPARIN 40 MG/0.4 ML INJ SUB-Q SCH (09:42)
[2020-02-19] MEDS: HYDROXYCHLOROQUINE 200 MG TAB PO SCH ×2 (09:43→21:57)
[2020-02-19] MEDS: FAMOTIDINE 20 MG TAB PO SCH (09:43)
[2020-02-19] MEDS: guaiFENesin ER 600 MG TAB PO SCH ×2 (09:43→21:57)
--- NOTE | 2020-02-19 14:45 | Progress Note ---
Assessment and Plan /Bilateral pneumonia with COVID 19 presented with Fever,cough,shortness of breath, tachycardia, tachypnea Started Plaquenil 400mg q12h for 2 doses to be followed by 200mg q12h for 12 doses. Consulted ID, Department of Health notified, Cont droplet precaution /Sepsis due to b/l PNA with COVID 19 - ID following, cont Plaquenil 400mg q12h for 2 doses to be followed by 200mg q12h for 12 doses. /Acute hypoxic resp failure On supplemental oxygen via Pulmonology following, nebs as needed wean off O2 as tolerated /Hyponatremia, stable /Dvt Px, scd and lovenox 02/09 Still having cough, fever. Swab specimen sent 02/08. awaiting result. 02/10 Still shortness of breath fever. On VM 50% with Fi02 50%. To f/u result of COVID test with Dept of health. 02/11 On VM 50% with Fi02 50%. To f/u result of COVID test with Dept of health. not medically stable for d/c. updated by phone 02/12 On VM 50% with Fi02 50% - unable to wean. To f/u result of COVID test with Dept of health. not medically stable for d/c. 02/13 Patient On VM 50% with Fi02 50% - unable to wean. To f/u result of COVID test with Dept of health. not medically stable for d/c. 02/14 Test result came positive for COVID 19, started on Plaquenil 02/15 continue Plaquenil and wean off from O2 as tolerated 02/16 continue Plaquenil and wean off from O2 as tolerated 02/17 called his - who is very panic and frustrated. Explained that COVID 19 has no cure discovered, plaquenil has been initiated. also advised for all family members to get tested 02/18 remains on 50% FiO2, unable to wean off, LTAC will not accept until COVID 19 is negative Brief History 44 yo M no PMHx admitted to the hospital with a bilateral pneumonia and positive novel coronavirus. Hospitalist Physical Vitals noted GEN: Not in acute distress, lying in bed, HEENT: Normocephalic, atraumatic, Lungs: no audible wheeze, on 50% venti mask heart;S1 and S2 reg, no murmurs, rubs or gallop Ext: No edema, no clubbing, no cyanosis, Neuro: Awake,alert,oriented x 3, no focal neuro signs Subjective Date of service: 02/19/20 Principal diagnosis: Ac hypoxemic resp failure; PNA (CAP); Febrile illness r/o COVID-19 Interval history: Pt seen and examined Still having SOB, still has cough no fever, covid 19 test result positive Answered all question at the bedside Unable to wean off from supplemental O2, remains on 50% FiO2 on Ventimask Objective - Constitutional Vitals: Vital Signs - 12hr 02/19/20 06:20 Temperature 99.7 F H Pulse Rate 73 Respiratory 20 Rate Blood Pressure 119/78 O2 Sat by Pulse 90 Oximetry - Labs CBC & Chem 7: 02/12/20 05:00 02/12/20 05:00
--- NOTE | 2020-02-19 21:17 | Progress Note ---
Assessment and Plan Acute hypoxemic respiratory failure. Community-acquired pneumonia. Febrile illness, rule out COVID-19. Mild hyponatremia. Hyperglycemia - prn ABG's - continue airborne and contact precautions - continue supportive care - clinically looks better (tentatively discharge to self quarantine once FiO2 </= 32%) - COVID-19 result positive - avoid BIPAP if does not decompensate re: Aerosolization risk - continue to wean supplemental oxygen to keep O2 sats > 90% (on 50% Venti-mask) - continue MDI Bronchodilators (CHELLY) with pulm hygiene per RT - repeat CXR prn - completed empiric CAP antibiotics - prn analgesia per pain score - continue mobility protocols to prevent pressure ulcers - PT/OT as tolerated - accuchecks with glycemic control per SSI for target blood glucose < 180 mg/dL - home oxygen evaluation at discharge - GI & VTE prophylaxis - Flu & pneumovax per protocol - Pulmonary out patient follow up post discharge - continue other care per attending / other consultants - watch closely ... re-evaluate in am & prn PROGNOSIS: GUARDED Subjective Date of service: 02/19/20 Principal diagnosis: Ac hypoxemic resp failure; PNA (CAP); Febrile illness r/o COVID-19 Interval history: Patient is seen today for: Acute hypoxemic respiratory failure; Pneumonia (CAP); Febrile illness r/o COVID-19; Mild hyponatremia; Hyperglycemia. Seen and examined at bedside; 24hour events reviewed; nursing and respiratory care staff consulted; no adverse overnight events reported to me; resting in bed; remainbs on 50% FiO2 and still SOB Objective Vital Signs - 12hr 02/19/20 02/19/20 02/19/20 10:40 17:20 18:00 O2 Sat by Pulse 90 86 90 Oximetry Constitutional: alert, other (middle aged male, normocephalic with mildly increased respiratory effort at rest, conversational dyspnea) Eyes: non-icteric ENT: oropharynx moist Neck: supple, no lymphadenopathy, no JVD Effort: mildly labored Ascultation: Bilateral: rhonchi Percussion: Bilateral: not dull Cardiovascular: regular rate and rhythm Gastrointestinal: normoactive bowel sounds, soft, non-tender, non-distended Integumentary: normal Extremities: no cyanosis, no edema, pulses normal, no ischemia or petechiae Neurologic: normal mental status, non-focal exam, pupils equal and round, motor strength normal and Psychiatric: mood appropriate, affect normal CBC and BMP: 02/12/20 05:00 02/12/20 05:00 ABG, PT/INR, D-dimer: ABG ABG pH 7.421 pH Units (7.350-7.450) 02/18/20 11:25 ABG pCO2 42.2 mm Hg 02/18/20 11:25 ABG pO2 50.6 mm Hg (80.0-90.0) L 02/18/20 11:25 ABG O2 Saturation 88.0 % (95.0-99.0) L 02/18/20 11:25 Abnormal lab findings: Abnormal Labs 02/08/20 02/08/20 02/08/20 18:49 18:49 19:44 WBC RDW 12.7 L Lymph % (Auto) 6.1 L Lymph # 0.6 L Seg Neutrophils % 88.7 H Seg Neutrophils # 9.3 H ABG pH 7.470 H ABG pO2 52.7 L ABG HCO3 ABG O2 Saturation 90.1 L Oxyhemoglobin 88.1 L Sodium 130 L Potassium Chloride 93.9 L Carbon Dioxide Creatinine 0.7 L Glucose 133 H POC Glucose Calcium 8.2 L NT-Pro-B Natriuret Pep Albumin 3.8 L 02/09/20 02/09/20 02/10/20 04:06 04:06 Unknown WBC 13.7 H RDW 12.6 L 12.7 L Lymph % (Auto) 9.7 L Lymph # 1.0 L Seg Neutrophils % 85.5 H Seg Neutrophils # 8.5 H ABG pH ABG pO2 ABG HCO3 ABG O2 Saturation Oxyhemoglobin Sodium 134 L Potassium Chloride Carbon Dioxide 21 L Creatinine Glucose 151 H POC Glucose Calcium 7.5 L NT-Pro-B Natriuret Pep Albumin 02/10/20 02/11/20 02/12/20 Unknown 14:33 05:00 WBC RDW 12.4 L Lymph % (Auto) Lymph # Seg Neutrophils % Seg Neutrophils # ABG pH ABG pO2 ABG HCO3 ABG O2 Saturation Oxyhemoglobin Sodium 134 L Potassium Chloride Carbon Dioxide 21 L Creatinine 0.5 L Glucose 123 H POC Glucose Calcium 7.6 L NT-Pro-B Natriuret Pep 464.5 H Albumin 0302/14/20 02/14/20 05:00 00:05 Unknown WBC RDW Lymph % (Auto) Lymph # Seg Neutrophils % Seg Neutrophils # ABG pH ABG pO2 58.4 L ABG HCO3 ABG O2 Saturation 91.9 L Oxyhemoglobin 90.2 L Sodium 135 L Potassium 3.5 L Chloride Carbon Dioxide Creatinine 0.5 L Glucose 140 H POC Glucose 119 H Calcium 7.9 L NT-Pro-B Natriuret Pep Albumin 02/18/20 11:25 WBC RDW Lymph % (Auto) Lymph # Seg Neutrophils % Seg Neutrophils # ABG pH ABG pO2 50.6 L ABG HCO3 26.8 H ABG O2 Saturation 88.0 L Oxyhemoglobin 86.3 L Sodium Potassium Chloride Carbon Dioxide Creatinine Glucose POC Glucose Calcium NT-Pro-B Natriuret Pep Albumin Allied health notes reviewed: nursing
[2020-02-20] MEDS: guaiFENesin ER 600 MG TAB PO SCH ×2 (09:09→22:30)
[2020-02-20] MEDS: ENOXAPARIN 40 MG/0.4 ML INJ SUB-Q SCH (09:09)
[2020-02-20] MEDS: FAMOTIDINE 20 MG TAB PO SCH (09:10)
[2020-02-20] MEDS: HYDROXYCHLOROQUINE 200 MG TAB PO SCH ×2 (09:10→22:30)
--- NOTE | 2020-02-20 11:32 | Progress Note ---
Assessment and Plan /Bilateral pneumonia with COVID 19 presented with Fever,cough,shortness of breath, tachycardia, tachypnea Started Plaquenil 400mg q12h for 2 doses to be followed by 200mg q12h for 12 doses. Consulted ID, Department of Health notified, Cont droplet precaution /Sepsis due to b/l PNA with COVID 19 - ID following, cont Plaquenil 400mg q12h for 2 doses to be followed by 200mg q12h for 12 doses. /Acute hypoxic resp failure On supplemental oxygen via Pulmonology following, nebs as needed wean off O2 as tolerated /Hyponatremia, stable /Dvt Px, scd and lovenox 02/09 Still having cough, fever. Swab specimen sent 02/08. awaiting result. 02/10 Still shortness of breath fever. On VM 50% with Fi02 50%. To f/u result of COVID test with Dept of health. 02/11 On VM 50% with Fi02 50%. To f/u result of COVID test with Dept of health. not medically stable for d/c. updated by phone 02/12 On VM 50% with Fi02 50% - unable to wean. To f/u result of COVID test with Dept of health. not medically stable for d/c. 02/13 Patient On VM 50% with Fi02 50% - unable to wean. To f/u result of COVID test with Dept of health. not medically stable for d/c. 02/14 Test result came positive for COVID 19, started on Plaquenil 02/15 continue Plaquenil and wean off from O2 as tolerated 02/16 continue Plaquenil and wean off from O2 as tolerated 02/17 called his - who is very panic and frustrated. Explained that COVID 19 has no cure discovered, plaquenil has been initiated. also advised for all family members to get tested 02/18 remains on 50% FiO2, unable to wean off, LTAC will not accept until COVID 19 is negative 02/19 remains on 50% FiO2, unable to wean off Brief History 44 yo M no PMHx admitted to the hospital with a bilateral pneumonia and positive novel coronavirus. Hospitalist Physical Vitals noted GEN: Not in acute distress, lying in bed, HEENT: Normocephalic, atraumatic, Lungs: no audible wheeze, on 50% venti mask heart;S1 and S2 reg, no murmurs, rubs or gallop Ext: No edema, no clubbing, no cyanosis, Neuro: Awake,alert,oriented x 3, no focal neuro signs Subjective Date of service: 02/20/20 Principal diagnosis: Ac hypoxemic resp failure; PNA (CAP); Febrile illness r/o COVID-19 Interval history: Pt seen and examined Still having SOB, still has cough no fever, covid 19 test result positive Answered all question at the bedside Unable to wean off from supplemental O2, remains on 50% FiO2 on Ventimask Objective - Constitutional Vitals: Vital Signs - 12hr 02/20/20 02/20/20 00:00 10:14 O2 Sat by Pulse 91 94 Oximetry - Labs CBC & Chem 7: 02/12/20 05:00 02/12/20 05:00
--- NOTE | 2020-02-20 21:22 | Progress Note ---
Assessment and Plan Acute hypoxemic respiratory failure. Community-acquired pneumonia. Febrile illness COVID-19 infection Mild hyponatremia. Hyperglycemia - prn ABG's at this point - continue airborne and contact precautions - continue supportive care - clinically looks better (tentatively discharge to self quarantine once FiO2 </= 32%) - COVID-19 result positive - avoid BIPAP if does not decompensate re: Aerosolization risk - continue to wean supplemental oxygen to keep O2 sats > 90% (on 50% Venti-mask) - continue MDI Bronchodilators (CHELLY) with pulm hygiene per RT - repeat CXR prn - completed empiric CAP antibiotics - prn analgesia per pain score - continue mobility protocols to prevent pressure ulcers - PT/OT as tolerated - accuchecks with glycemic control per SSI for target blood glucose < 180 mg/dL - home oxygen evaluation at discharge - GI & VTE prophylaxis - Flu & pneumovax per protocol - Pulmonary out patient follow up post discharge - continue other care per attending / other consultants - watch closely ... re-evaluate in am & prn PROGNOSIS: GUARDED Subjective Date of service: 02/20/20 Principal diagnosis: Ac hypoxemic resp failure; PNA (CAP); Febrile illness r/o COVID-19 Interval history: Patient is seen today for: Acute hypoxemic respiratory failure; Pneumonia (CAP); Febrile illness r/o COVID-19; Mild hyponatremia; Hyperglycemia. Seen and examined at bedside; 24hour events reviewed; nursing and respiratory care staff consulted; no adverse overnight events reported to me; resting in bed; remains SOB; remains on 50% Venti mask; no new issues otherwise Objective Vital Signs - 12hr 02/20/20 02/20/20 02/20/20 10:14 11:40 16:56 Temperature 98.7 F 98.7 F Pulse Rate 87 98 H Respiratory 18 20 Rate Blood Pressure 97/64 98/59 O2 Sat by Pulse 94 92 93 Oximetry Constitutional: alert, other (middle aged male, normocephalic with mildly increased respiratory effort at rest, conversational dyspnea) Eyes: non-icteric ENT: oropharynx moist Neck: supple, no lymphadenopathy, no JVD Effort: mildly labored Ascultation: Bilateral: rales (much improved) Percussion: Bilateral: not dull Cardiovascular: regular rate and rhythm Gastrointestinal: normoactive bowel sounds, soft, non-tender, non-distended Integumentary: normal Extremities: no cyanosis, no edema, pulses normal, no ischemia or petechiae Neurologic: normal mental status, non-focal exam, pupils equal and round, motor strength normal and Psychiatric: mood appropriate, affect normal CBC and BMP: 02/12/20 05:00 02/12/20 05:00 ABG, PT/INR, D-dimer: ABG ABG pH 7.421 pH Units (7.350-7.450) 02/18/20 11:25 ABG pCO2 42.2 mm Hg 02/18/20 11:25 ABG pO2 50.6 mm Hg (80.0-90.0) L 02/18/20 11:25 ABG O2 Saturation 88.0 % (95.0-99.0) L 02/18/20 11:25 Abnormal lab findings: Abnormal Labs 02/08/20 02/08/20 02/08/20 18:49 18:49 19:44 WBC RDW 12.7 L Lymph % (Auto) 6.1 L Lymph # 0.6 L Seg Neutrophils % 88.7 H Seg Neutrophils # 9.3 H ABG pH 7.470 H ABG pO2 52.7 L ABG HCO3 ABG O2 Saturation 90.1 L Oxyhemoglobin 88.1 L Sodium 130 L Potassium Chloride 93.9 L Carbon Dioxide Creatinine 0.7 L Glucose 133 H POC Glucose Calcium 8.2 L NT-Pro-B Natriuret Pep Albumin 3.8 L 02/09/20 02/09/20 02/10/20 04:06 04:06 Unknown WBC 13.7 H RDW 12.6 L 12.7 L Lymph % (Auto) 9.7 L Lymph # 1.0 L Seg Neutrophils % 85.5 H Seg Neutrophils # 8.5 H ABG pH ABG pO2 ABG HCO3 ABG O2 Saturation Oxyhemoglobin Sodium 134 L Potassium Chloride Carbon Dioxide 21 L Creatinine Glucose 151 H POC Glucose Calcium 7.5 L NT-Pro-B Natriuret Pep Albumin 02/10/20 02/11/20 02/12/20 Unknown 14:33 05:00 WBC RDW 12.4 L Lymph % (Auto) Lymph # Seg Neutrophils % Seg Neutrophils # ABG pH ABG pO2 ABG HCO3 ABG O2 Saturation Oxyhemoglobin Sodium 134 L Potassium Chloride Carbon Dioxide 21 L Creatinine 0.5 L Glucose 123 H POC Glucose Calcium 7.6 L NT-Pro-B Natriuret Pep 464.5 H Albumin 02/12/20 02/14/20 02/14/20 05:00 00:05 Unknown WBC RDW Lymph % (Auto) Lymph # Seg Neutrophils % Seg Neutrophils # ABG pH ABG pO2 58.4 L ABG HCO3 ABG O2 Saturation 91.9 L Oxyhemoglobin 90.2 L Sodium 135 L Potassium 3.5 L Chloride Carbon Dioxide Creatinine 0.5 L Glucose 140 H POC Glucose 119 H Calcium 7.9 L NT-Pro-B Natriuret Pep Albumin 02/18/20 11:25 WBC RDW Lymph % (Auto) Lymph # Seg Neutrophils % Seg Neutrophils # ABG pH ABG pO2 50.6 L ABG HCO3 26.8 H ABG O2 Saturation 88.0 L Oxyhemoglobin 86.3 L Sodium Potassium Chloride Carbon Dioxide Creatinine Glucose POC Glucose Calcium NT-Pro-B Natriuret Pep Albumin Allied health notes reviewed: nursing
[2020-02-20] MEDS: oxyCODONE /ACETAMINOPHEN 5-325MG TAB PO PRN (22:54)
[2020-02-21] MEDS: oxyCODONE /ACETAMINOPHEN 5-325MG TAB PO PRN (12:14)
[2020-02-21] MEDS: ENOXAPARIN 40 MG/0.4 ML INJ SUB-Q SCH (12:14)
[2020-02-21] MEDS: diphenhydrAMINE 25 MG CAP PO PRN (12:15)
[2020-02-21] MEDS: HYDROXYCHLOROQUINE 200 MG TAB PO SCH ×2 (12:16→21:19)
[2020-02-21] MEDS: FAMOTIDINE 20 MG TAB PO SCH (12:16)
[2020-02-21] MEDS: guaiFENesin ER 600 MG TAB PO SCH ×2 (12:16→21:19)
--- NOTE | 2020-02-21 17:24 | Progress Note ---
Assessment and Plan /Bilateral pneumonia with COVID 19 presented with Fever,cough,shortness of breath, tachycardia, tachypnea Started Plaquenil 400mg q12h for 2 doses to be followed by 200mg q12h for 12 doses. Consulted ID, Department of Health notified, Cont droplet precaution /Sepsis due to b/l PNA with COVID 19 - ID following, cont Plaquenil 400mg q12h for 2 doses to be followed by 200mg q12h for 12 doses. /Acute hypoxic resp failure On supplemental oxygen via Pulmonology following, nebs as needed wean off O2 as tolerated /Hyponatremia, stable /Dvt Px, scd and lovenox 02/09 Still having cough, fever. Swab specimen sent 02/08. awaiting result. 02/10 Still shortness of breath fever. On VM 50% with Fi02 50%. To f/u result of COVID test with Dept of health. 02/11 On VM 50% with Fi02 50%. To f/u result of COVID test with Dept of health. not medically stable for d/c. updated by phone 02/12 On VM 50% with Fi02 50% - unable to wean. To f/u result of COVID test with Dept of health. not medically stable for d/c. 02/13 Patient On VM 50% with Fi02 50% - unable to wean. To f/u result of COVID test with Dept of health. not medically stable for d/c. 02/14 Test result came positive for COVID 19, started on Plaquenil 02/15 continue Plaquenil and wean off from O2 as tolerated 02/16 continue Plaquenil and wean off from O2 as tolerated 02/17 called his - who is very panic and frustrated. Explained that COVID 19 has no cure discovered, plaquenil has been initiated. also advised for all family members to get tested 02/18 remains on 50% FiO2, unable to wean off, LTAC will not accept until COVID 19 is negative 02/19 remains on 50% FiO2, unable to wean off 02/20 remains on 50% FiO2, unable to wean off Brief History 44 yo M no PMHx admitted to the hospital with a bilateral pneumonia and positive novel coronavirus. Hospitalist Physical Vitals noted GEN: Not in acute distress, lying in bed, HEENT: Normocephalic, atraumatic, Lungs: no audible wheeze, on 50% venti mask heart;S1 and S2 reg, no murmurs, rubs or gallop Ext: No edema, no clubbing, no cyanosis, Neuro: Awake,alert,oriented x 3, no focal neuro signs Subjective Date of service: 02/21/20 Principal diagnosis: Ac hypoxemic resp failure; PNA (CAP); Febrile illness r/o COVID-19 Interval history: Pt seen and examined Still having SOB, still has cough no fever, covid 19 test result positive Answered all question at the bedside Unable to wean off from supplemental O2, remains on 50% FiO2 on Ventimask Objective - Constitutional Vitals: Vital Signs - 12hr 02/21/20 02/21/20 02/21/20 06:18 10:33 11:55 Temperature 97.5 F L 98.4 F Pulse Rate 79 84 Respiratory 20 22 Rate Blood Pressure 98/64 102/67 O2 Sat by Pulse 92 94 92 Oximetry - Labs CBC & Chem 7: 02/12/20 05:00 02/12/20 05:00
[2020-02-22] MEDS: ENOXAPARIN 40 MG/0.4 ML INJ SUB-Q SCH (09:53)
[2020-02-22] MEDS: FAMOTIDINE 20 MG TAB PO SCH (09:53)
[2020-02-22] MEDS: guaiFENesin ER 600 MG TAB PO SCH ×2 (09:53→21:11)
--- NOTE | 2020-02-22 13:33 | Progress Note ---
Assessment and Plan Acute hypoxemic respiratory failure. Community-acquired pneumonia. Febrile illness COVID-19 infection Mild hyponatremia. Hyperglycemia - no new issues, continue care as below - prn ABG's at this point - continue airborne and contact precautions - continue supportive care - clinically looks better (tentatively discharge to self quarantine once FiO2 </= 32%) - COVID-19 result positive - avoid BIPAP if does not decompensate re: Aerosolization risk - continue to wean supplemental oxygen to keep O2 sats > 90% (on 50% Venti-mask) - continue MDI Bronchodilators (CHELLY) with pulm hygiene per RT - repeat CXR prn - completed empiric CAP antibiotics - prn analgesia per pain score - continue mobility protocols to prevent pressure ulcers - PT/OT as tolerated - accuchecks with glycemic control per SSI for target blood glucose < 180 mg/dL - home oxygen evaluation at discharge - GI & VTE prophylaxis - Flu & pneumovax per protocol - Pulmonary out patient follow up post discharge - continue other care per attending / other consultants - watch closely ... re-evaluate in am & prn PROGNOSIS: GUARDED Subjective Date of service: 02/22/20 Principal diagnosis: Ac hypoxemic resp failure; PNA (CAP); Febrile illness r/o COVID-19 Interval history: Patient is seen today for: Acute hypoxemic respiratory failure; Pneumonia (CAP); Febrile illness r/o COVID-19; Mild hyponatremia; Hyperglycemia. Seen and examined at bedside; 24hour events reviewed; nursing and respiratory care staff consulted; no adverse overnight events reported to me; resting in bed; remains SOB; remains on 50% FiO2; No N/V or high grade fevers Objective Vital Signs - 12hr 02/22/20 02/22/20 06:00 06:32 Temperature 98.1 F 98.3 F Pulse Rate 81 81 Respiratory 18 22 Rate Blood Pressure 99/67 Blood Pressure 99/67 [Left] O2 Sat by Pulse 96 94 Oximetry Constitutional: alert, other (middle aged male, normocephalic with mildly i ncreased respiratory effort at rest, conversational dyspnea) Eyes: non-icteric ENT: oropharynx moist Neck: supple, no lymphadenopathy, no JVD Effort: mildly labored Ascultation: Bilateral: rales (bases posterior) Percussion: Bilateral: not dull Cardiovascular: regular rate and rhythm Gastrointestinal: normoactive bowel sounds, soft, non-tender, non-distended Integumentary: normal Extremities: no cyanosis, no edema, pulses normal, no ischemia or petechiae Neurologic: normal mental status, non-focal exam, pupils equal and round, motor strength normal and Psychiatric: mood appropriate, affect normal CBC and BMP: 02/24/20 05:28 02/24/20 05:28 ABG, PT/INR, D-dimer: ABG ABG pH 7.421 pH Units (7.350-7.450) 02/18/20 11:25 ABG pCO2 42.2 mm Hg 02/18/20 11:25 ABG pO2 50.6 mm Hg (80.0-90.0) L 02/18/20 11:25 ABG O2 Saturation 88.0 % (95.0-99.0) L 02/18/20 11:25 Abnormal lab findings: Abnormal Labs 02/08/20 02/08/20 02/08/20 18:49 18:49 19:44 WBC RDW 12.7 L Lymph % (Auto) 6.1 L Lymph # 0.6 L Seg Neutrophils % 88.7 H Seg Neutrophils # 9.3 H ABG pH 7.470 H ABG pO2 52.7 L ABG HCO3 ABG O2 Saturation 90.1 L Oxyhemoglobin 88.1 L Sodium 130 L Potassium Chloride 93.9 L Carbon Dioxide Creatinine 0.7 L Glucose 133 H POC Glucose Calcium 8.2 L NT-Pro-B Natriuret Pep Albumin 3.8 L 02/09/20 02/09/20 02/10/20 04:06 04:06 Unknown WBC 13.7 H RDW 12.6 L 12.7 L Lymph % (Auto) 9.7 L Lymph # 1.0 L Seg Neutrophils % 85.5 H Seg Neutrophils # 8.5 H ABG pH ABG pO2 ABG HCO3 ABG O2 Saturation Oxyhemoglobin Sodium 134 L Potassium Chloride Carbon Dioxide 21 L Creatinine Glucose 151 H POC Glucose Calcium 7.5 L NT-Pro-B Natriuret Pep Albumin 02/10/20 02/11/20 02/12/20 Unknown 14:33 05:00 WBC RDW 12.4 L Lymph % (Auto) Lymph # Seg Neutrophils % Seg Neutrophils # ABG pH ABG pO2 ABG HCO3 ABG O2 Saturation Oxyhemoglobin Sodium 134 L Potassium Chloride Carbon Dioxide 21 L Creatinine 0.5 L Glucose 123 H POC Glucose Calcium 7.6 L NT-Pro-B Natriuret Pep 464.5 H Albumin 02/12/20 02/14/20 02/14/20 05:00 00:05 Unknown WBC RDW Lymph % (Auto) Lymph # Seg Neutrophils % Seg Neutrophils # ABG pH ABG pO2 58.4 L ABG HCO3 ABG O2 Saturation 91.9 L Oxyhemoglobin 90.2 L Sodium 135 L Potassium 3.5 L Chloride Carbon Dioxide Creatinine 0.5 L Glucose 140 H POC Glucose 119 H Calcium 7.9 L NT-Pro-B Natriuret Pep Albumin 02/18/20 11:25 WBC RDW Lymph % (Auto) Lymph # Seg Neutrophils % Seg Neutrophils # ABG pH ABG pO2 50.6 L ABG HCO3 26.8 H ABG O2 Saturation 88.0 L Oxyhemoglobin 86.3 L Sodium Potassium Chloride Carbon Dioxide Creatinine Glucose POC Glucose Calcium NT-Pro-B Natriuret Pep Albumin Allied health notes reviewed: nursing
--- NOTE | 2020-02-22 13:33 | Progress Note ---
Assessment and Plan Acute hypoxemic respiratory failure. Community-acquired pneumonia. Febrile illness COVID-19 infection Mild hyponatremia. Hyperglycemia - no daniel issues, continue care as below - prn ABG's at this point - continue airborne and contact precautions - continue supportive care - clinically looks better (tentatively discharge to self quarantine once FiO2 </= 32%) - COVID-19 result positive - avoid BIPAP if does not decompensate re: Aerosolization risk - continue to wean supplemental oxygen to keep O2 sats > 90% (on 50% Venti-mask) - continue MDI Bronchodilators (CHELLY) with pulm hygiene per RT - repeat CXR prn - completed empiric CAP antibiotics - prn analgesia per pain score - continue mobility protocols to prevent pressure ulcers - PT/OT as tolerated - accuchecks with glycemic control per SSI for target blood glucose < 180 mg/dL - home oxygen evaluation at discharge - GI & VTE prophylaxis - Flu & pneumovax per protocol - Pulmonary out patient follow up post discharge - continue other care per attending / other consultants - watch closely ... re-evaluate in am & prn PROGNOSIS: GUARDED Subjective Date of service: 02/21/20 Principal diagnosis: Ac hypoxemic resp failure; PNA (CAP); Febrile illness r/o COVID-19 Interval history: LATE ENTRY NOTE FOR DOS 02/21/2020 Patient is seen today for: Acute hypoxemic respiratory failure; Pneumonia (CAP); Febrile illness r/o COVID-19; Mild hyponatremia; Hyperglycemia. Seen and examined at bedside; 24hour events reviewed; nursing and respiratory care staff consulted; no adverse overnight events reported to me; resting in bed; remains SOB; remains on 50% Venti mask; Objective Vital Signs - 12hr 02/22/20 02/22/20 06:00 06:32 Temperature 98.1 F 98.3 F Pulse Rate 81 81 Respiratory 18 22 Rate Blood Pressure 99/67 Blood Pressure 99/67 [Left] O2 Sat by Pulse 96 94 Oximetry Constitutional: alert, other (middle aged male, normocephalic with mildly increased respiratory effort at rest, conversational dyspnea) Eyes: non-icteric ENT: oropharynx moist Neck: supple, no lymphadenopathy, no JVD Effort: mildly labored Ascultation: Bilateral: rales (bases posterior) Percussion: Bilateral: not dull Cardiovascular: regular rate and rhythm Gastrointestinal: normoactive bowel sounds, soft, non-tender, non-distended Integumentary: normal Extremities: no cyanosis, no edema, pulses normal, no ischemia or petechiae Neurologic: normal mental status, non-focal exam, pupils equal and round, motor strength normal and Psychiatric: mood appropriate, affect normal CBC and BMP: 02/12/20 05:00 02/12/20 05:00 ABG, PT/INR, D-dimer: ABG ABG pH 7.421 pH Units (7.350-7.450) 02/18/20 11:25 ABG pCO2 42.2 mm Hg 02/18/20 11:25 ABG pO2 50.6 mm Hg (80.0-90.0) L 02/18/20 11:25 ABG O2 Saturation 88.0 % (95.0-99.0) L 02/18/20 11:25 Abnormal lab findings: Abnormal Labs 02/08/20 02/08/20 02/08/20 18:49 18:49 19:44 WBC RDW 12.7 L Lymph % (Auto) 6.1 L Lymph # 0.6 L Seg Neutrophils % 88.7 H Seg Neutrophils # 9.3 H ABG pH 7.470 H ABG pO2 52.7 L ABG HCO3 ABG O2 Saturation 90.1 L Oxyhemoglobin 88.1 L Sodium 130 L Potassium Chloride 93.9 L Carbon Dioxide Creatinine 0.7 L Glucose 133 H POC Glucose Calcium 8.2 L NT-Pro-B Natriuret Pep Albumin 3.8 L 02/09/20 02/09/20 02/10/20 04:06 04:06 Unknown WBC 13.7 H RDW 12.6 L 12.7 L Lymph % (Auto) 9.7 L Lymph # 1.0 L Seg Neutrophils % 85.5 H Seg Neutrophils # 8.5 H ABG pH ABG pO2 ABG HCO3 ABG O2 Saturation Oxyhemoglobin Sodium 134 L Potassium Chloride Carbon Dioxide 21 L Creatinine Glucose 151 H POC Glucose Calcium 7.5 L NT-Pro-B Natriuret Pep Albumin 02/10/20 02/11/20 02/12/20 Unknown 14:33 05:00 WBC RDW 12.4 L Lymph % (Auto) Lymph # Seg Neutrophils % Seg Neutrophils # ABG pH ABG pO2 ABG HCO3 ABG O2 Saturation Oxyhemoglobin Sodium 134 L Potassium Chloride Carbon Dioxide 21 L Creatinine 0.5 L Glucose 123 H POC Glucose Calcium 7.6 L NT-Pro-B Natriuret Pep 464.5 H Albumin 02/12/20 02/14/20 02/14/20 05:00 00:05 Unknown WBC RDW Lymph % (Auto) Lymph # Seg Neutrophils % Seg Neutrophils # ABG pH ABG pO2 58.4 L ABG HCO3 ABG O2 Saturation 91.9 L Oxyhemoglobin 90.2 L Sodium 135 L Potassium 3.5 L Chloride Carbon Dioxide Creatinine 0.5 L Glucose 140 H POC Glucose 119 H Calcium 7.9 L NT-Pro-B Natriuret Pep Albumin 02/18/20 11:25 WBC RDW Lymph % (Auto) Lymph # Seg Neutrophils % Seg Neutrophils # ABG pH ABG pO2 50.6 L ABG HCO3 26.8 H ABG O2 Saturation 88.0 L Oxyhemoglobin 86.3 L Sodium Potassium Chloride Carbon Dioxide Creatinine Glucose POC Glucose Calcium NT-Pro-B Natriuret Pep Albumin Allied health notes reviewed: nursing
--- NOTE | 2020-02-22 18:57 | Progress Note ---
Assessment and Plan - Patient Problems (1) Hypoxia Current Visit: Yes Status: Acute (2) Pneumonia Current Visit: Yes Status: Acute Subjective Date of service: 02/22/20 Principal diagnosis: Ac hypoxemic resp failure; PNA (CAP); Febrile illness r/o COVID-19 Interval history: Still unable to wean off the vent. Acute respiratory failure with bilateral pneumonia positive for COVRD19. Objective - Constitutional Vitals: Vital Signs - 12hr 02/22/20 02/22/20 10:00 14:10 O2 Sat by Pulse 95 92 Oximetry General appearance: Present: mild distress - Neck Neck: supple, normal ROM - Respiratory Respiratory effort: normal Respiratory: bilateral: diminished, rhonchi - Cardiovascular Rhythm: regular Extremities: no ischemia, pulses intact, pulses symmetrical, No edema, normal temperature, normal color - Gastrointestinal General gastrointestinal: Present: soft, non-tender, non-distended, normal bowel sounds - Musculoskeletal Musculoskeletal: generalized weakness - Labs CBC & Chem 7: 02/12/20 05:00 02/12/20 05:00 - Imaging and cardiology Chest x-ray: report reviewed, image reviewed
[2020-02-23] MEDS: guaiFENesin ER 600 MG TAB PO SCH ×2 (09:51→21:14)
[2020-02-23] MEDS: FAMOTIDINE 20 MG TAB PO SCH (09:51)
[2020-02-23] MEDS: ENOXAPARIN 40 MG/0.4 ML INJ SUB-Q SCH (09:51)
--- NOTE | 2020-02-23 14:11 | Progress Note ---
Assessment and Plan Acute hypoxemic respiratory failure. Community-acquired pneumonia. Febrile illness, Positivefor COVID-19. Mild hyponatremia. Hyperglycemia - continue to wean supplemental oxygen to keep O2 sats > 90% (remains on 50% Venti-mask) - continue airborne and contact precautions - continue Bronchodilators (CHELLY) with pulmonary hygiene per RT - repeat CXR prn limit testing as patient has a high pre-test probability for COVID-19 - follow COVID-19 result - complete empiric CAP antibiotics - prn analgesia per pain score - PT/OT as tolerated - accuchecks with glycemic control per SSI for target blood glucose < 180 mg/dL - home oxygen evaluation at discharge - GI & VTE prophylaxis - Flu & pneumovax per protocol - Pulmonary out patient follow up post discharge - continue other care per attending / other consultants - Monitor closely, low threshold for MVS if indicated Subjective Date of service: 02/23/20 Principal diagnosis: Ac hypoxemic resp failure; PNA (CAP); Febrile illness r/o COVID-19 Interval history: Patient is seen today for: Acute hypoxemic respiratory failure; Pneumonia (CAP); Febrile illness PUI COVID-19; Mild hyponatremia; Hyperglycemia. Seen and examined at bedside; 24hour events reviewed; nursing and respiratory care staff consulted; no adverse overnight events reported to me; resting in bed; continues to feel better but still SOB but improving; COVID-19 positive Objective Vital Signs - 12hr 02/23/20 02/23/20 06:04 11:44 Temperature 98.0 F 99.5 F Pulse Rate 83 89 Respiratory 16 18 Rate Blood Pressure 87/58 93/66 O2 Sat by Pulse 90 92 Oximetry Constitutional: alert, other (middle aged male, normocephalic with mildly increased respiratory effort at rest, conversational dyspnea) Eyes: non-icteric ENT: oropharynx moist Neck: supple, no lymphadenopathy, no JVD Effort: mildly labored Ascultation: Bilateral: rales (much improved), rhonchi Percussion: Bilateral: not dull Cardiovascular: regular rate and rhythm Gastrointestinal: normoactive bowel sounds, soft, non-tender, non-distended Integumentary: normal Extremities: no cyanosis, no edema, pulses normal, no ischemia or petechiae Neurologic: normal mental status, non-focal exam, pupils equal and round, motor strength normal and Psychiatric: mood appropriate, affect normal CBC and BMP: 02/12/20 05:00 02/12/20 05:00 ABG, PT/INR, D-dimer: ABG ABG pH 7.421 pH Units (7.350-7.450) 02/18/20 11:25 ABG pCO2 42.2 mm Hg 02/18/20 11:25 ABG pO2 50.6 mm Hg (80.0-90.0) L 02/18/20 11:25 ABG O2 Saturation 88.0 % (95.0-99.0) L 02/18/20 11:25 Abnormal lab findings: Abnormal Labs 02/08/20 02/08/20 02/08/20 18:49 18:49 19:44 WBC RDW 12.7 L Lymph % (Auto) 6.1 L Lymph # 0.6 L Seg Neutrophils % 88.7 H Seg Neutrophils # 9.3 H ABG pH 7.470 H ABG pO2 52.7 L ABG HCO3 ABG O2 Saturation 90.1 L Oxyhemoglobin 88.1 L Sodium 130 L Potassium Chloride 93.9 L Carbon Dioxide Creatinine 0.7 L Glucose 133 H POC Glucose Calcium 8.2 L NT-Pro-B Natriuret Pep Albumin 3.8 L 02/09/20 02/09/20 02/10/20 04:06 04:06 Unknown WBC 13.7 H RDW 12.6 L 12.7 L Lymph % (Auto) 9.7 L Lymph # 1.0 L Seg Neutrophils % 85.5 H Seg Neutrophils # 8.5 H ABG pH ABG pO2 ABG HCO3 ABG O2 Saturation Oxyhemoglobin Sodium 134 L Potassium Chloride Carbon Dioxide 21 L Creatinine Glucose 151 H POC Glucose Calcium 7.5 L NT-Pro-B Natriuret Pep Albumin 02/10/20 02/11/20 02/12/20 Unknown 14:33 05:00 WBC RDW 12.4 L Lymph % (Auto) Lymph # Seg Neutrophils % Seg Neutrophils # ABG pH ABG pO2 ABG HCO3 ABG O2 Saturation Oxyhemoglobin Sodium 134 L Potassium Chloride Carbon Dioxide 21 L Creatinine 0.5 L Glucose 123 H POC Glucose Calcium 7.6 L NT-Pro-B Natriuret Pep 464.5 H Albumin 02/12/20 02/14/20 02/14/20 05:00 00:05 Unknown WBC RDW Lymph % (Auto) Lymph # Seg Neutrophils % Seg Neutrophils # ABG pH ABG pO2 58.4 L ABG HCO3 ABG O2 Saturation 91.9 L Oxyhemoglobin 90.2 L Sodium 135 L Potassium 3.5 L Chloride Carbon Dioxide Creatinine 0.5 L Glucose 140 H POC Glucose 119 H Calcium 7.9 L NT-Pro-B Natriuret Pep Albumin 02/18/20 11:25 WBC RDW Lymph % (Auto) Lymph # Seg Neutrophils % Seg Neutrophils # ABG pH ABG pO2 50.6 L ABG HCO3 26.8 H ABG O2 Saturation 88.0 L Oxyhemoglobin 86.3 L Sodium Potassium Chloride Carbon Dioxide Creatinine Glucose POC Glucose Calcium NT-Pro-B Natriuret Pep Albumin Allied health notes reviewed: nursing
--- NOTE | 2020-02-23 15:05 | Progress Note ---
Assessment and Plan - Patient Problems (1) Hypoxia Current Visit: Yes Status: Acute (2) Pneumonia Current Visit: Yes Status: Acute Subjective Principal diagnosis: Ac hypoxemic resp failure; PNA (CAP); Febrile illness r/o COVID-19 Interval history: Patient appears to be more stable today. Patient O2 sats were 95% on 2 L O2. Was 84% on room air. Otherwise remains hemodynamically stable. Objective - Constitutional Vitals: Vital Signs - 12hr 02/23/20 02/23/20 06:04 11:44 Temperature 98.0 F 99.5 F Pulse Rate 83 89 Respiratory 16 18 Rate Blood Pressure 87/58 93/66 O2 Sat by Pulse 90 92 Oximetry General appearance: Present: no acute distress, well-nourished - EENT Eyes: PERRL, EOM intact ENT: hearing intact, clear oral mucosa Ears: bilateral: normal - Neck Neck: supple, normal ROM - Respiratory Respiratory effort: normal Respiratory: bilateral: diminished (Lateral diminished breath sounds.) - Breasts Breasts: normal - Cardiovascular Rhythm: regular Heart Sounds: Present: S1 & S2. Absent: gallop, rub Extremities: pulses intact, No edema, normal color, Full ROM - Gastrointestinal General gastrointestinal: Present: soft, non-tender, non-distended, normal bowel sounds - Genitourinary Male genitourinary: normal - Integumentary Integumentary: clear, warm, dry - Musculoskeletal Musculoskeletal: 1, strength equal bilaterally - Neurologic Neurologic: moves all extremities - Psychiatric Psychiatric: memory intact, appropriate mood/affect, intact judgment & insight - Labs CBC & Chem 7: 02/12/20 05:00 02/12/20 05:00
[2020-02-24 07:14] LABS: Hematocrit 39.3 % (35.5-45.6); Hemoglobin 13.3 gm/dl (11.8-15.2); Mean Corpuscular HGB Conc 34 % (32-34); Mean Corpuscular Volume 91 fl (84-94); Platelet Count 580 K/mm3 (140-440); Red Blood Count 4.32 M/mm3 (3.65-5.03); Red Cell Distribution Width 12.9 % (13.2-15.2)
[2020-02-24 07:21] LABS: BUN/Creatinine Ratio 17; Blood Urea Nitrogen 12 mg/dL (9-20); Calcium 9.2 mg/dL (8.4-10.2); Hemolysis Index 1
[2020-02-24 08:49] LABS: Basophils # (Auto) 0.1 K/mm3 (0.0-0.1); Eosinophils # (Auto) 0.2 K/mm3 (0.0-0.4); Eosinophils % (Auto) 2.4 % (0.0-4.3); Monocytes # (Auto) 0.9 K/mm3 (0.0-0.8); Monocytes % (Auto) 12.2 % (0.0-7.3)
[2020-02-24] MEDS: guaiFENesin ER 600 MG TAB PO SCH ×2 (10:26→22:06)
[2020-02-24] MEDS: FAMOTIDINE 20 MG TAB PO SCH (10:26)
[2020-02-24] MEDS: ENOXAPARIN 40 MG/0.4 ML INJ SUB-Q SCH (10:26)
[2020-02-24 10:48] LABS: Myelocytes # (Manual) 0.1 K/mm3; Platelet Estimate Consistent w Auto; RBC Morphology Normal; Total Cells Counted 100
--- NOTE | 2020-02-24 10:56 | Progress Note ---
Assessment and Plan Acute hypoxemic respiratory failure. Community-acquired pneumonia. Febrile illness, Positivefor COVID-19. Mild hyponatremia. Hyperglycemia - continue to wean supplemental oxygen to keep O2 sats > 90% (remains on 50% Venti-mask) - continue airborne and contact precautions - continue Bronchodilators (CHELLY) with pulmonary hygiene per RT - repeat CXR prn limit testing as patient has a high pre-test probability for COVID-19 - complete Plaquenil, positive COVID- testing - complete empiric CAP antibiotics - prn analgesia per pain score - PT/OT as tolerated - accuchecks with glycemic control per SSI for target blood glucose < 180 mg/dL - home oxygen evaluation at discharge, remains on supplemental oxygen at 50 % - GI & VTE prophylaxis - Flu & pneumovax per protocol - Pulmonary out patient follow up post discharge fro follow up on lung function - continue other care per attending / other consultants - Monitor closely Subjective Date of service: 02/24/20 Principal diagnosis: Ac hypoxemic resp failure; PNA (CAP); Febrile illness r/o COVID-19 Interval history: Patient is seen today for: Acute hypoxemic respiratory failure; Pneumonia (CAP); Febrile illness POSITIVE COVID-19; Mild hyponatremia; Hyperglycemia. Seen and examined at bedside; 24hour events reviewed; nursing and respiratory care staff consulted; no adverse overnight events reported to me; resting in bed; continues to feel better but still SOB but improving; COVID-19 positive. On plaquenil but remains on FIO2 50%, difficult to wean. Vitals, labs, medications, chart reviewed Objective Vital Signs - 12hr 02/23/20 02/24/20 23:30 00:05 Temperature 98.7 F Pulse Rate 88 88 Respiratory 20 Rate Blood Pressure 105/72 O2 Sat by Pulse 93 97 Oximetry Constitutional: alert, other (middle aged male, normocephalic with mildly increased respiratory effort at rest, conversational dyspnea) Eyes: non-icteric ENT: oropharynx moist Neck: supple, no lymphadenopathy, no JVD Effort: mildly labored Ascultation: Bilateral: rales (much improved), rhonchi Percussion: Bilateral: not dull Cardiovascular: regular rate and rhythm Gastrointestinal: normoactive bowel sounds, soft, non-tender, non-distended Integumentary: normal Extremities: no cyanosis, no edema, pulses normal, no ischemia or petechiae Neurologic: normal mental status, non-focal exam, pupils equal and round, motor strength normal and Psychiatric: mood appropriate, affect normal CBC and BMP: 02/24/20 05:28 02/24/20 05:28 ABG, PT/INR, D-dimer: ABG ABG pH 7.421 pH Units (7.350-7.450) 02/18/20 11:25 ABG pCO2 42.2 mm Hg 02/18/20 11:25 ABG pO2 50.6 mm Hg (80.0-90.0) L 02/18/20 11:25 ABG O2 Saturation 88.0 % (95.0-99.0) L 02/18/20 11:25 Abnormal lab findings: Abnormal Labs 02/08/20 02/08/20 02/08/20 18:49 18:49 19:44 WBC RDW 12.7 L Plt Count Lymph % (Auto) 6.1 L [place] % (Auto) Lymph # 0.6 L [place] # Seg Neutrophils % 88.7 H Monocytes % (Manual) Eosinophils % (Manual) Seg Neutrophils # 9.3 H Lymphocytes # (Manual) ABG pH 7.470 H ABG pO2 52.7 L ABG HCO3 ABG O2 Saturation 90.1 L Oxyhemoglobin 88.1 L Sodium 130 L Potassium Chloride 93.9 L Carbon Dioxide Creatinine 0.7 L Glucose 133 H POC Glucose Calcium 8.2 L NT-Pro-B Natriuret Pep Albumin 3.8 L 02/09/20 02/09/20 02/10/20 04:06 04:06 Unknown WBC 13.7 H RDW 12.6 L 12.7 L Plt Count Lymph % (Auto) 9.7 L [place] % (Auto) Lymph # 1.0 L [place] # Seg Neutrophils % 85.5 H Monocytes % (Manual) Eosinophils % (Manual) Seg Neutrophils # 8.5 H Lymphocytes # (Manual) ABG pH ABG pO2 ABG HCO3 ABG O2 Saturation Oxyhemoglobin Sodium 134 L Potassium Chloride Carbon Dioxide 21 L Creatinine Glucose 151 H POC Glucose Calcium 7.5 L NT-Pro-B Natriuret Pep Albumin 02/10/20 02/11/20 02/12/20 Unknown 14:33 05:00 WBC RDW 12.4 L Plt Count Lymph % (Auto) [place] % (Auto) Lymph # [place] # Seg Neutrophils % Monocytes % (Manual) Eosinophils % (Manual) Seg Neutrophils # Lymphocytes # (Manual) ABG pH ABG pO2 ABG HCO3 ABG O2 Saturation Oxyhemoglobin Sodium 134 L Potassium Chloride Carbon Dioxide 21 L Creatinine 0.5 L Glucose 123 H POC Glucose Calcium 7.6 L NT-Pro-B Natriuret Pep 464.5 H Albumin 02/12/20 02/14/20 02/14/20 05:00 00:05 Unknown WBC RDW Plt Count Lymph % (Auto) [place] % (Auto) Lymph # [place] # Seg Neutrophils % Monocytes % (Manual) Eosinophils % (Manual) Seg Neutrophils # Lymphocytes # (Manual) ABG pH ABG pO2 58.4 L ABG HCO3 ABG O2 Saturation 91.9 L Oxyhemoglobin 90.2 L Sodium 135 L Potassium 3.5 L Chloride Carbon Dioxide Creatinine 0.5 L Glucose 140 H POC Glucose 119 H Calcium 7.9 L NT-Pro-B Natriuret Pep Albumin 02/18/20 02/24/20 02/24/20 11:25 05:28 05:28 WBC RDW 12.9 L Plt Count 580 H Lymph % (Auto) [place] % (Auto) 12.2 H Lymph # [place] # 0.9 H Seg Neutrophils % Monocytes % (Manual) 11.0 H Eosinophils % (Manual) 6.0 H Seg Neutrophils # Lymphocytes # (Manual) 0.9 L ABG pH ABG pO2 50.6 L ABG HCO3 26.8 H ABG O2 Saturation 88.0 L Oxyhemoglobin 86.3 L Sodium 136 L Potassium Chloride Carbon Dioxide Creatinine 0.7 L Glucose POC Glucose Calcium NT-Pro-B Natriuret Pep Albumin Allied health notes reviewed: nursing
[2020-02-24 16:30] LABS: ABG Base Excess 1.1 mmol/L (-2.0-3.0); ABG HCO3 25.6 mmol/L (20.0-26.0); ABG Methemoglobin 0.6 % (0.0-1.5); ABG Oxygen Saturation 85.4 % (95.0-99.0); ABG PCO2 39.9 mm Hg; ABG PH 7.424 pH Units (7.350-7.450)
--- NOTE | 2020-02-24 16:46 | Progress Note ---
Assessment and Plan - Patient Problems (1) Hypoxia Current Visit: Yes Status: Acute Plan to address problem: Currently hypoxemia resolving secondary to COVID-19 infection. Patient currently does not appear to be further trending towards ARDS. Patient has been afebrile oxygenating improving. If disease course continues at his current rate possibly can go home several days. (2) Pneumonia Current Visit: Yes Status: Acute Subjective Principal diagnosis: Ac hypoxemic resp failure; PNA (CAP); Febrile illness r/o COVID-19 Interval history: At present seems to be oxygenating better. Able to wean oxygen. Patient was 87% on 3 L. Objective - Constitutional Vitals: Vital Signs - 12hr 02/24/20 11:42 Temperature 98.6 F Pulse Rate 98 H Respiratory 18 Rate Blood Pressure 89/56 O2 Sat by Pulse 91 Oximetry General appearance: Present: no acute distress, well-nourished - EENT Eyes: PERRL, EOM intact ENT: hearing intact, clear oral mucosa Ears: bilateral: normal - Neck Neck: supple, normal ROM - Respiratory Respiratory effort: normal Respiratory: bilateral: diminished - Breasts Breasts: normal - Cardiovascular Rhythm: regular Heart Sounds: Present: S1 & S2. Absent: gallop, rub Extremities: pulses intact, No edema, normal color, Full ROM - Gastrointestinal General gastrointestinal: Present: soft, non-tender, non-distended, normal bowel sounds - Genitourinary Male genitourinary: normal - Integumentary Integumentary: clear, warm, dry - Musculoskeletal Musculoskeletal: 1, strength equal bilaterally - Neurologic Neurologic: moves all extremities - Psychiatric Psychiatric: memory intact, appropriate mood/affect, intact judgment & insight - Labs CBC & Chem 7: 02/24/20 05:28 02/24/20 05:28 Labs: Abnormal lab results 02/24/20 02/24/20 02/24/20 Range/Units 05:28 05:28 16:00 RDW 12.9 L (13.2-15.2) % Plt Count 580 H (140-440) K/mm3 [place] % (Auto) 12.2 H (0.0-7.3) % [place] # 0.9 H (0.0-0.8) K/mm3 Monocytes % (Manual) 11.0 H (0.0-7.3) % Eosinophils % (Manual) 6.0 H (0.0-4.3) % Lymphocytes # (Manual) 0.9 L (1.2-5.4) K/mm3 ABG pO2 48.0 L (80.0-90.0) mm Hg ABG O2 Saturation 85.4 L (95.0-99.0) % Oxyhemoglobin 83.8 L (95.0-99.0) % Sodium 136 L (137-145) mmol/L Creatinine 0.7 L (0.8-1.5) mg/dL
[2020-02-25] MEDS ORDERED: SODIUM CHLORIDE 0.9% 1000 ML 500 ML IV ONE (05:42)
[2020-02-25] MEDS: guaiFENesin ER 600 MG TAB PO SCH ×2 (09:14→21:41)
[2020-02-25] MEDS: FAMOTIDINE 20 MG TAB PO SCH (09:14)
[2020-02-25] MEDS: ENOXAPARIN 40 MG/0.4 ML INJ SUB-Q SCH (09:14)
--- NOTE | 2020-02-25 14:22 | Progress Note ---
Assessment and Plan Acute hypoxemic respiratory failure. Community-acquired pneumonia. Febrile illness COVID-19 infection Mild hyponatremia. Hyperglycemia - no new issues, continue care as below - prn ABG's at this point - continue airborne and contact precautions - continue supportive care - clinically looks better (tentatively discharge to self quarantine once FiO2 </= 32%) - COVID-19 result positive - avoid BIPAP if does not decompensate re: Aerosolization risk - continue to wean supplemental oxygen to keep O2 sats > 90% (on 50% Venti-mask) - continue MDI Bronchodilators (CHELLY) with pulm hygiene per RT - repeat CXR prn - completed empiric CAP antibiotics - prn analgesia per pain score - continue mobility protocols to prevent pressure ulcers - PT/OT as tolerated - accuchecks with glycemic control per SSI for target blood glucose < 180 mg/dL - home oxygen evaluation at discharge - GI & VTE prophylaxis - Flu & pneumovax per protocol - Pulmonary out patient follow up post discharge - continue other care per attending / other consultants - watch closely ... re-evaluate in am & prn PROGNOSIS: GUARDED Subjective Date of service: 02/25/20 Principal diagnosis: Ac hypoxemic resp failure; PNA (CAP); Febrile illness r/o COVID-19 Interval history: Patient is seen today for: Acute hypoxemic respiratory failure; Pneumonia (CAP); Febrile illness r/o COVID-19; Mild hyponatremia; Hyperglycemia. Seen and examined at bedside; 24hour events reviewed; nursing and respiratory care staff consulted; no adverse overnight events reported to me; resting in bed; remains SOB; remains on supplemental oxygen; No N/V/F/C Objective Vital Signs - 12hr 02/25/20 02/25/20 02/25/20 04:57 09:21 11:53 Temperature 98.7 F 98.6 F Pulse Rate 79 85 71 Respiratory 20 20 20 Rate Blood Pressure 87/53 98/58 103/59 O2 Sat by Pulse 92 93 96 Oximetry Constitutional: alert, other (middle aged male, normocephalic with mildly incr eased respiratory effort at rest, conversational dyspnea) Eyes: non-icteric ENT: oropharynx moist Neck: supple, no lymphadenopathy, no JVD Effort: mildly labored Ascultation: Bilateral: rales (bases posterior) Percussion: Bilateral: not dull Cardiovascular: regular rate and rhythm Gastrointestinal: normoactive bowel sounds, soft, non-tender, non-distended Integumentary: normal Extremities: no cyanosis, no edema, pulses normal, no ischemia or petechiae Neurologic: normal mental status, non-focal exam, pupils equal and round, motor strength normal and Psychiatric: mood appropriate, affect normal CBC and BMP: 02/24/20 05:28 02/24/20 05:28 ABG, PT/INR, D-dimer: ABG ABG pH 7.424 pH Units (7.350-7.450) 02/24/20 16:00 ABG pCO2 39.9 mm Hg 02/24/20 16:00 ABG pO2 48.0 mm Hg (80.0-90.0) L 02/24/20 16:00 ABG O2 Saturation 85.4 % (95.0-99.0) L 02/24/20 16:00 Abnormal lab findings: Abnormal Labs 02/08/20 02/08/20 02/08/20 18:49 18:49 19:44 WBC RDW 12.7 L Plt Count Lymph % (Auto) 6.1 L [place] % (Auto) Lymph # 0.6 L [place] # Seg Neutrophils % 88.7 H Monocytes % (Manual) Eosinophils % (Manual) Seg Neutrophils # 9.3 H Lymphocytes # (Manual) ABG pH 7.470 H ABG pO2 52.7 L ABG HCO3 ABG O2 Saturation 90.1 L Oxyhemoglobin 88.1 L Sodium 130 L Potassium Chloride 93.9 L Carbon Dioxide Creatinine 0.7 L Glucose 133 H POC Glucose Calcium 8.2 L NT-Pro-B Natriuret Pep Albumin 3.8 L 02/09/20 02/09/20 02/10/20 04:06 04:06 Unknown WBC 13.7 H RDW 12.6 L 12.7 L Plt Count Lymph % (Auto) 9.7 L [place] % (Auto) Lymph # 1.0 L [place] # Seg Neutrophils % 85.5 H Monocytes % (Manual) Eosinophils % (Manual) Seg Neutrophils # 8.5 H Lymphocytes # (Manual) ABG pH ABG pO2 ABG HCO3 ABG O2 Saturation Oxyhemoglobin Sodium 134 L Potassium Chloride Carbon Dioxide 21 L Creatinine Glucose 151 H POC Glucose Calcium 7.5 L NT-Pro-B Natriuret Pep Albumin 02/10/20 02/11/20 02/12/20 Unknown 14:33 05:00 WBC RDW 12.4 L Plt Count Lymph % (Auto) [place] % (Auto) Lymph # [place] # Seg Neutrophils % Monocytes % (Manual) Eosinophils % (Manual) Seg Neutrophils # Lymphocytes # (Manual) ABG pH ABG pO2 ABG HCO3 ABG O2 Saturation Oxyhemoglobin Sodium 134 L Potassium Chloride Carbon Dioxide 21 L Creatinine 0.5 L Glucose 123 H POC Glucose Calcium 7.6 L NT-Pro-B Natriuret Pep 464.5 H Albumin 02/12/20 02/14/20 02/14/20 05:00 00:05 Unknown WBC RDW Plt Count Lymph % (Auto) [place] % (Auto) Lymph # [place] # Seg Neutrophils % Monocytes % (Manual) Eosinophils % (Manual) Seg Neutrophils # Lymphocytes # (Manual) ABG pH ABG pO2 58.4 L ABG HCO3 ABG O2 Saturation 91.9 L Oxyhemoglobin 90.2 L Sodium 135 L Potassium 3.5 L Chloride Carbon Dioxide Creatinine 0.5 L Glucose 140 H POC Glucose 119 H Calcium 7.9 L NT-Pro-B Natriuret Pep Albumin 02/18/20 02/24/20 02/24/20 11:25 05:28 05:28 WBC RDW 12.9 L Plt Count 580 H Lymph % (Auto) [place] % (Auto) 12.2 H Lymph # [place] # 0.9 H Seg Neutrophils % Monocytes % (Manual) 11.0 H Eosinophils % (Manual) 6.0 H Seg Neutrophils # Lymphocytes # (Manual) 0.9 L ABG pH ABG pO2 50.6 L ABG HCO3 26.8 H ABG O2 Saturation 88.0 L Oxyhemoglobin 86.3 L Sodium 136 L Potassium Chloride Carbon Dioxide Creatinine 0.7 L Glucose POC Glucose Calcium NT-Pro-B Natriuret Pep Albumin 02/24/20 16:00 WBC RDW Plt Count Lymph % (Auto) [place] % (Auto) Lymph # [place] # Seg Neutrophils % Monocytes % (Manual) Eosinophils % (Manual) Seg Neutrophils # Lymphocytes # (Manual) ABG pH ABG pO2 48.0 L ABG HCO3 ABG O2 Saturation 85.4 L Oxyhemoglobin 83.8 L Sodium Potassium Chloride Carbon Dioxide Creatinine Glucose POC Glucose Calcium NT-Pro-B Natriuret Pep Albumin Allied health notes reviewed: nursing
--- NOTE | 2020-02-25 17:28 | Progress Note ---
Assessment and Plan Assessment and plan: 44-year-old male with no medical problem comes emergency room with complaints of shortness of breath, cough, chills, fever. He was seen in the urgent care and was diagnosed with sinusitis, his symptoms continue without any improvement, he returned to the urgent care and was sent to the diagnosed with bronchitis. Patient was given amoxicillin, steroids and fluticasone with cough medications 2 days ago, symptoms have not improved so he came to the emergency room for further evaluation. Patient will be admitted for pneumonia * Continues with profound hypoxemia. We will continue oxygen and wean as tolerated. Obtain inflammatory markers and follow. /Bilateral pneumonia with COVID 19 presented with Fever,cough,shortness of breath, tachycardia, tachypnea Started Plaquenil 400mg q12h for 2 doses to be followed by 200mg q12h for 12 doses. Consulted ID, Department of Health notified, Cont droplet precaution /Sepsis due to b/l PNA with COVID 19 - ID following, cont Plaquenil 400mg q12h for 2 doses to be followed by 200mg q12h for 12 doses. /Acute hypoxic resp failure On supplemental oxygen via VM now down to nasal cannula Pulmonology following, nebs as needed wean off O2 as tolerated /Hyponatremia, stable /Dvt Px, scd and lovenox 02/09 Still having cough, fever. Swab specimen sent 02/08. awaiting result. 02/10 Still shortness of breath fever. On VM 50% with Fi02 50%. To f/u result of COVID test with Dept of health. 02/11 On VM 50% with Fi02 50%. To f/u result of COVID test with Dept of health. not medically stable for d/c. updated by phone 02/12 On VM 50% with Fi02 50% - unable to wean. To f/u result of COVID test with Dept of health. not medically stable for d/c. 02/13 Patient On VM 50% with Fi02 50% - unable to wean. To f/u result of COVID test with Dept of health. not medically stable for d/c. 02/14 Test result came positive for COVID 19, started on Plaquenil 02/15 continue Plaquenil and wean off from O2 as tolerated 02/16 continue Plaquenil and wean off from O2 as tolerated 02/17 called his - who is very panic and frustrated. Explained that COVID 19 has no cure discovered, plaquenil has been initiated. also advised for all family members to get tested 02/18 remains on 50% FiO2, unable to wean off, [facility] will not accept until COVID 19 is negative 02/19 remains on 50% FiO2, unable to wean off 02/20 remains on 50% FiO2, unable to wean off History Interval history: Patient seen and examined resting comfortably no acute distress at this time reports improvement although still hypoxic at baseline requiring 5 L of oxygen. Hospitalist Physical - Physical exam Narrative exam: VITAL SIGNS: Reviewed. GENERAL: The patient appears normally developed, Vital signs as documented. HEAD: No signs of head trauma. EYES: Pupils are equal. Extraocular motions intact. EARS: Hearing grossly intact. MOUTH: Oropharynx is normal. NECK: No adenopathy, no JVD. CHEST: Chest with fine crackles breath sounds bilaterally. No wheezes, rales, or rhonchi. CARDIAC: Regular rate and rhythm. S1 and S2, without murmurs, gallops, or rubs. VASCULAR: No Edema. Peripheral pulses normal and equal in all extremities. ABDOMEN: Soft, non tender and non distended. No rebound or guarding, and no masses palpated. Bowel Sounds normal. MUSCULOSKELETAL: Good range of motion of all major joints. Extremities without clubbing, cyanosis or edema. NEUROLOGIC EXAM: Alert and oriented x 3 No focal sensory or strength deficits. Speech normal. Follows commands. PSYCHIATRIC: Mood normal. SKIN: detial exam as documented in skin assessment - Constitutional Vitals: Temp Pulse Resp BP Pulse Ox 98.6 F 71 20 103/59 96 02/25/20 11:53 02/25/20 11:53 02/25/20 11:53 02/25/20 11:53 02/25/20 11:53 General appearance: Present: no acute distress, well-nourished Results - Labs CBC & Chem 7: 02/24/20 05:28 02/24/20 05:28 Labs: Laboratory Last Values WBC 6.5 K/mm3 (4.5-11.0) 02/24/20 05:28 RBC 4.32 M/mm3 (3.65-5.03) 02/24/20 05:28 Hgb 13.3 gm/dl (11.8-15.2) 02/24/20 05:28 Hct 39.3 % (35.5-45.6) 02/24/20 05:28 MCV 91 fl (84-94) 02/24/20 05:28 MCH 31 pg (28-32) 02/24/20 05:28 MCHC 34 % (32-34) 02/24/20 05:28 RDW 12.9 % (13.2-15.2) L 02/24/20 05:28 Plt Count 580 K/mm3 (140-440) H 02/24/20 05:28 Lymph % (Auto) 9.7 % (13.4-35.0) L 02/09/20 04:06 [place] % (Auto) 12.2 % (0.0-7.3) H 02/24/20 05:28 Eos % (Auto) 2.4 % (0.0-4.3) 02/24/20 05:28 Baso % (Auto) 0.1 % (0.0-1.8) 02/09/20 04:06 Lymph # 1.0 K/mm3 (1.2-5.4) L 02/09/20 04:06 [place] # 0.9 K/mm3 (0.0-0.8) H 02/24/20 05:28 Eos # 0.2 K/mm3 (0.0-0.4) 02/24/20 05:28 Baso # 0.1 K/mm3 (0.0-0.1) 02/24/20 05:28 Add Manual Diff Complete 02/24/20 05:28 Total Counted 100 02/24/20 05:28 Seg Neutrophils % 62.7 % (40.0-70.0) 02/24/20 05:28 Seg Neuts % (Manual) 63.0 % (40.0-70.0) 02/24/20 05:28 Band Neutrophils % 0 % 02/24/20 05:28 Lymphocytes % (Manual) 14.0 % (13.4-35.0) 02/24/20 05:28 Reactive Lymphs % (Man) 2.0 % 02/24/20 05:28 Monocytes % (Manual) 11.0 % (0.0-7.3) H 02/24/20 05:28 Eosinophils % (Manual) 6.0 % (0.0-4.3) H 02/24/20 05:28 Basophils % (Manual) 1.0 % (0.0-1.8) 02/24/20 05:28 Metamyelocytes % 2.0 % 02/24/20 05:28 Myelocytes % 1.0 % 02/24/20 05:28 Promyelocytes % 0 % 02/24/20 05:28 Blast Cells % 0 % 02/24/20 05:28 Nucleated RBC % Not Reportable 02/24/20 05:28 Seg Neutrophils # 4.5 K/mm3 (1.8-7.7) 02/24/20 05:28 Seg Neutrophils # Man 4.1 K/mm3 (1.8-7.7) 02/24/20 05:28 Band Neutrophils # 0.0 K/mm3 02/24/20 05:28 Lymphocytes # (Manual) 0.9 K/mm3 (1.2-5.4) L 02/24/20 05:28 Abs React Lymphs (Man) 0.1 K/mm3 02/24/20 05:28 Monocytes # (Manual) 0.7 K/mm3 (0.0-0.8) 02/24/20 05:28 Eosinophils # (Manual) 0.4 K/mm3 (0.0-0.4) 02/24/20 05:28 Basophils # (Manual) 0.1 K/mm3 (0.0-0.1) 02/24/20 05:28 Metamyelocytes # 0.1 K/mm3 02/24/20 05:28 Myelocytes # 0.1 K/mm3 02/24/20 05:28 Promyelocytes # 0.0 K/mm3 02/24/20 05:28 Blast Cells # 0.0 K/mm3 02/24/20 05:28 WBC Morphology Not Reportable 02/24/20 05:28 Hypersegmented Neuts Not Reportable 02/24/20 05:28 Hyposegmented Neuts Not Reportable 02/24/20 05:28 Hypogranular Neuts Not Reportable 02/24/20 05:28 Smudge Cells Not Reportable 02/24/20 05:28 Toxic Granulation Not Reportable 02/24/20 05:28 Toxic Vacuolation Not Reportable 02/24/20 05:28 Dohle Bodies Not Reportable 02/24/20 05:28 Pelger-Huet Anomaly Not Reportable 02/24/20 05:28 Zacarias Rods Not Reportable 02/24/20 05:28 Platelet Estimate Consistent w auto 02/24/20 05:28 Clumped Platelets Not Reportable 02/24/20 05:28 Plt Clumps, EDTA Not Reportable 02/24/20 05:28 Large Platelets Not Reportable 02/24/20 05:28 Giant Platelets Not Reportable 02/24/20 05:28 Platelet Satelliting Not Reportable 02/24/20 05:28 Plt Morphology Comment Not Reportable 02/24/20 05:28 RBC Morphology Normal 02/24/20 05:28 Dimorphic RBCs Not Reportable 02/24/20 05:28 Polychromasia Not Reportable 02/24/20 05:28 Hypochromasia Not Reportable 02/24/20 05:28 Poikilocytosis Not Reportable 02/24/20 05:28 Anisocytosis Not Reportable 02/24/20 05:28 Microcytosis Not Reportable 02/24/20 05:28 Macrocytosis Not Reportable 02/24/20 05:28 Spherocytes Not Reportable 02/24/20 05:28 Pappenheimer Bodies Not Reportable 02/24/20 05:28 Sickle Cells Not Reportable 02/24/20 05:28 Target Cells Not Reportable 02/24/20 05:28 Tear Drop Cells Not Reportable 02/24/20 05:28 Ovalocytes Not Reportable 02/24/20 05:28 Helmet Cells Not Reportable 02/24/20 05:28 [place] Bodies Not Reportable 02/24/20 05:28 [place] Rings Not Reportable 02/24/20 05:28 [place] Cells Not Reportable 02/24/20 05:28 Bite Cells Not Reportable 02/24/20 05:28 Crenated Cell Not Reportable 02/24/20 05:28 Elliptocytes Not Reportable 02/24/20 05:28 Acanthocytes (Spur) Not Reportable 02/24/20 05:28 Rouleaux Not Reportable 02/24/20 05:28 Hemoglobin C Crystals Not Reportable 02/24/20 05:28 Schistocytes Not Reportable 02/24/20 05:28 Malaria parasites Not Reportable 02/24/20 05:28 Juan Bodies Not Reportable 02/24/20 05:28 Hem Pathologist Commnt No 02/24/20 05:28 ABG pH 7.424 pH Units (7.350-7.450) 02/24/20 16:00 ABG pCO2 39.9 mm Hg 02/24/20 16:00 ABG pO2 48.0 mm Hg (80.0-90.0) L 02/24/20 16:00 ABG HCO3 25.6 mmol/L (20.0-26.0) 02/24/20 16:00 ABG O2 Saturation 85.4 % (95.0-99.0) L 02/24/20 16:00 ABG O2 Content 17.7 (0.0-44) 02/24/20 16:00 ABG Base Excess 1.1 mmol/L (-2.0-3.0) 02/24/20 16:00 ABG Hemoglobin 15.1 gm/dl (14.0-18.0) 02/24/20 16:00 ABG Carboxyhemoglobin 1.2 % (0.0-5.0) 02/24/20 16:00 ABG Methemoglobin 0.6 % (0.0-1.5) 02/24/20 16:00 Oxyhemoglobin 83.8 % (95.0-99.0) L 02/24/20 16:00 FiO2 21 % 02/24/20 16:00 Sodium 136 mmol/L (137-145) L 02/24/20 05:28 Potassium 4.1 mmol/L (3.6-5.0) 02/24/20 05:28 Chloride 98.6 mmol/L (98-107) 02/24/20 05:28 Carbon Dioxide 23 mmol/L (22-30) 02/24/20 05:28 Anion Gap 19 mmol/L 02/24/20 05:28 BUN 12 mg/dL (9-20) 02/24/20 05:28 Creatinine 0.7 mg/dL (0.8-1.5) L 02/24/20 05:28 Estimated GFR > 60 ml/min 02/24/20 05:28 BUN/Creatinine Ratio 17 % 02/24/20 05:28 Glucose 92 mg/dL (75-100) 02/24/20 05:28 POC Glucose 119 (70-105) H 02/14/20 00:05 Lactic Acid 1.10 mmol/L (0.7-2.0) 02/08/20 18:49 Calcium 9.2 mg/dL (8.4-10.2) 02/24/20 05:28 Total Bilirubin 0.60 mg/dL (0.1-1.2) 02/08/20 18:49 AST 39 units/L (5-40) 02/08/20 18:49 ALT 49 units/L (7-56) 02/08/20 18:49 Alkaline Phosphatase 72 units/L (35-129) 02/08/20 18:49 Troponin T < 0.010 ng/mL (0.00-0.029) 02/13/20 19:32 NT-Pro-B Natriuret Pep 464.5 pg/mL (0-450) H 02/11/20 14:33 Total Protein 7.2 g/dL (6.3-8.2) 02/08/20 18:49 Albumin 3.8 g/dL (3.9-5) L 02/08/20 18:49 Albumin/Globulin Ratio 1.1 % 02/08/20 18:49 Procalcitonin 0.20 ng/mL (<0.15) 02/11/20 Unknown Influenza A (Rapid) Negative (Negative) 02/08/20 Unknown Influenza B (Rapid) Negative (Negative) 02/08/20 Unknown Lee/IV: Voiding Method Toilet IV Catheter Type [Left Forearm INT / Saline Lock ] IV Catheter Type [Left Hand] INT / Saline Lock IV Catheter Type [Right INT / Saline Lock Forearm] IV Catheter Type [Left INT / Saline Lock Antecubital] Active Medications - Current Medications Current Medications: Generic Name Dose Route Start Last Admin Trade Name Freq PRN Reason Stop Dose Admin Acetaminophen 650 mg 02/08/20 23:06 02/10/20 00:29 Tylenol PO 650 mg Q4H PRN Administration Pain MILD(1-3)/Fever >100.5/ULLOA Albuterol 2.5 mg 02/12/20 03:22 Proventil IH Q4HRT PRN Shortness Of Breath Diphenhydramine HCl 25 mg 02/10/20 12:49 02/21/20 12:15 Benadryl PO 25 mg Q8H PRN Administration Itching Diphenhydramine HCl 25 mg 02/10/20 12:50 02/15/20 00:23 Benadryl IV 25 mg Q6H PRN Administration Itching Enoxaparin Sodium 40 mg 02/09/20 10:00 02/25/20 09:14 Enoxaparin SUB-Q 40 mg QDAY@1000 YAMILA Administration Famotidine 20 mg 02/12/20 10:00 02/25/20 09:14 Pepcid PO 20 mg QDAY YAMILA Administration Guaifenesin 600 mg 02/16/20 22:00 02/25/20 09:14 Mucinex Er PO 600 mg BID YAMILA Administration Ondansetron HCl 4 mg 02/08/20 23:06 Zofran IV Q8H PRN Nausea And Vomiting Oxycodone/Acetaminophen 1 tab 02/08/20 23:06 02/20/20 22:54 Percocet 5/325 PO 1 tab Q6H PRN Administration Pain, Moderate (4-6) Sodium Chloride 10 ml 02/09/20 10:00 02/25/20 09:14 Sodium Chloride Flush Syringe 10 Ml IV 10 ml BID YAMILA Administration Sodium Chloride 10 ml 02/08/20 23:06 Sodium Chloride Flush Syringe 10 Ml IV PRN PRN LINE FLUSH Nutrition/Malnutrition Assess - Dietary Evaluation Nutrition/Malnutrition Findings: Nutrition Notes Start: 02/15/20 13:46 Freq: Status: Active Protocol: Document 02/15/20 13:46 LM (Rec: 02/15/20 13:47 LM [id number]) Nutrition Notes Need for Assessment generated from: LOS Initial or Follow up Brief Note Subjective/Other Information Screen for LOS. Pt stated he is eating well with no wt loss . Nutrition Intervention Revisit per MD consult or patient Sign Off request:
--- NOTE | 2020-02-25 17:39 | Progress Note ---
Assessment and Plan Cultures: Blood culture 02/08/2020 Flu negative A/P: 44 yo M no PMHx admitted to the hospital with a bilateral pneumonia and being ruled out for novel coronavirus #Severe COVID19 pneumonia: results returned today, patient has COVID-19. I have started Plaquenil 400mg q12h for 2 doses to be followed by 200mg q12h for 12 doses. #Acute hypoxemic respiratory failure: remains on 5L NC O2 Recs: Repeat CXR 1 view Check Ferritin, LDH, D-Dimer, CRP tomorrow Continuos pulse oximetry and exercise pulse oximetry, consider supplemental home O2 ContinueCOVID isolationprecautions per [facility] protocol Completed hydroxychloroquine Home quarantine for 14 days from initial symptoms (own bedroom, toilet, utensils), educate that viral shedding may last 21 days Thank you for the consult, we will continue to follow. Tracy Gil MD Infectious Diseases Employee Wellness/Fitness Coordinator [facility] ([facility]) M [phone] O [phone] Subjective Date of service: 02/25/20 Principal diagnosis: Ac hypoxemic resp failure; PNA (CAP); Febrile illness r/o COVID-19 Interval history: Feeling better remains on 5L O2 no fever Objective - Exam Narrative Exam: Constitutional: Alert, cooperative. Mildly short of breath Oral: limited due to lack of PPE Cardiovascular: limited due to lack of PPE Respiratory: Bilateral rhonchi/wheezes per NS GI: limited due to lack of PPE Musculoskeletal: limited due to lack of PPE Skin: No rash or abscess Hem/Lymphatic: limited due to lack of PPE Psych: Mood ok. Affect normal Neurological: Awake, alert, oriented. No gross abnormality - Constitutional Vitals: Vital Signs Temp Pulse Resp BP Pulse Ox 98.6 F 71 20 103/59 96 02/25/20 11:53 02/25/20 11:53 02/25/20 11:53 02/25/20 11:53 02/25/20 11:53 Temperature -Last 24 Hours Temperature 98.6 F Temperature 98.7 F Temperature 98.6 F - Labs CBC & Chem 7: 02/24/20 05:28 02/24/20 05:28
--- NOTE | 2020-02-25 18:26 | XRay Report ---
CHEST 1 VIEW, 02/25/2020 5:18 PM CLINICAL INFORMATION/INDICATION: History of pneumonia. Follow-up evaluation. COMPARISON: Chest radiograph, 02/13/2020 FINDINGS: SUPPORT DEVICES: None. HEART: Cardiac and mediastinal contours appear unchanged. LUNGS/PLEURA: Airspace disease throughout the left lung and within the right upper lung zone has slig htly improved since the previous study. No significant pleural effusion is identified. ADDITIONAL FINDINGS: No additional acute findings. IMPRESSION: 1. Slight interval improvement in the appearance of bilateral airspace disease. Signer Name: Debra Manjarrez MD Signed: 02/25/2020 6:21 PM Workstation Name: [id number]
[2020-02-25 21:52] LABS: C-Reactive Protein 0.6 mg/dL (0.00-1.30)
[2020-02-26] MEDS: ENOXAPARIN 40 MG/0.4 ML INJ SUB-Q SCH (10:44)
[2020-02-26] MEDS: guaiFENesin ER 600 MG TAB PO SCH ×2 (10:44→21:58)
[2020-02-26] MEDS: FAMOTIDINE 20 MG TAB PO SCH (10:44)
--- NOTE | 2020-02-26 16:00 | Progress Note ---
Assessment and Plan Acute hypoxemic respiratory failure. Community-acquired pneumonia. Febrile illness COVID-19 infection Mild hyponatremia. Hyperglycemia - no new issues, continue care as below - prn ABG's at this point - continue airborne droplet and contact precautions - continue supportive care - clinically looks better (tentatively discharge to self quarantine once FiO2 </= 32%) - COVID-19 result positive - avoid BIPAP if does not decompensate re: Aerosolization risk - continue to wean supplemental oxygen to keep O2 sats > 90% (on 50% Venti-mask) - continue MDI Bronchodilators (CHELLY) with pulm hygiene per RT - repeat CXR prn - completed empiric CAP antibiotics - prn analgesia per pain score - continue mobility protocols to prevent pressure ulcers - PT/OT as tolerated - accuchecks with glycemic control per SSI for target blood glucose < 180 mg/dL - home oxygen evaluation at discharge - GI & VTE prophylaxis - Flu & pneumovax per protocol - Pulmonary out patient follow up post discharge - continue other care per attending / other consultants - watch closely ... re-evaluate in am & prn PROGNOSIS: GUARDED Subjective Date of service: 02/26/20 Principal diagnosis: Ac hypoxemic resp failure; PNA (CAP); Febrile illness r/o COVID-19 Interval history: Patient is seen today for: Acute hypoxemic respiratory failure; Pneumonia (CAP); Febrile illness r/o COVID-19; Mild hyponatremia; Hyperglycemia. Seen and examined at bedside; 24hour events reviewed; nursing and respiratory care staff consulted; no adverse overnight events reported to me; resting in bed; oxygtenation slowly improving; on 4-5 liters NC; no high grade fevers Objective Vital Signs - 12hr 02/26/20 02/26/20 05:24 11:47 Temperature 97.7 F 98.5 F Pulse Rate 78 82 Respiratory 16 20 Rate Blood Pressure 97/59 100/59 O2 Sat by Pulse 94 92 Oximetry Constitutional: alert, other (middle aged male, normocephalic with mildly increased respiratory effort at rest no more conversational dyspnea) Eyes: non-icteric ENT: oropharynx moist Neck: supple, no lymphadenopathy, no JVD Effort: mildly labored Ascultation: Bilateral: rales (bases posterior) Percussion: Bilateral: not dull Cardiovascular: regular rate and rhythm Gastrointestinal: normoactive bowel sounds, soft, non-tender, non-distended Integumentary: normal Extremities: no cyanosis, no edema, pulses normal, no ischemia or petechiae Neurologic: normal mental status, non-focal exam, pupils equal and round, motor strength normal and Psychiatric: mood appropriate, affect normal CBC and BMP: 02/24/20 05:28 02/24/20 05:28 ABG, PT/INR, D-dimer: ABG ABG pH 7.424 pH Units (7.350-7.450) 02/24/20 16:00 ABG pCO2 39.9 mm Hg 02/24/20 16:00 ABG pO2 48.0 mm Hg (80.0-90.0) L 02/24/20 16:00 ABG O2 Saturation 85.4 % (95.0-99.0) L 02/24/20 16:00 PT/INR, D-dimer D-Dimer 352.03 ng/mlDDU (0-234) H 02/25/20 20:09 Abnormal lab findings: Abnormal Labs 02/08/20 02/08/20 02/08/20 18:49 18:49 19:44 WBC RDW 12.7 L Plt Count Lymph % (Auto) 6.1 L [place] % (Auto) Lymph # 0.6 L [place] # Seg Neutrophils % 88.7 H Monocytes % (Manual) Eosinophils % (Manual) Seg Neutrophils # 9.3 H Lymphocytes # (Manual) D-Dimer ABG pH 7.470 H ABG pO2 52.7 L ABG HCO3 ABG O2 Saturation 90.1 L Oxyhemoglobin 88.1 L Sodium 130 L Potassium Chloride 93.9 L Carbon Dioxide Creatinine 0.7 L Glucose 133 H POC Glucose Calcium 8.2 L Ferritin Lactate Dehydrogenase NT-Pro-B Natriuret Pep Albumin 3.8 L 02/09/20 02/09/20 02/10/20 04:06 04:06 Unknown WBC 13.7 H RDW 12.6 L 12.7 L Plt Count Lymph % (Auto) 9.7 L [place] % (Auto) Lymph # 1.0 L [place] # Seg Neutrophils % 85.5 H Monocytes % (Manual) Eosinophils % (Manual) Seg Neutrophils # 8.5 H Lymphocytes # (Manual) D-Dimer ABG pH ABG pO2 ABG HCO3 ABG O2 Saturation Oxyhemoglobin Sodium 134 L Potassium Chloride Carbon Dioxide 21 L Creatinine Glucose 151 H POC Glucose Calcium 7.5 L Ferritin Lactate Dehydrogenase NT-Pro-B Natriuret Pep Albumin 02/10/20 02/11/20 02/12/20 Unknown 14:33 05:00 WBC RDW 12.4 L Plt Count Lymph % (Auto) [place] % (Auto) Lymph # [place] # Seg Neutrophils % Monocytes % (Manual) Eosinophils % (Manual) Seg Neutrophils # Lymphocytes # (Manual) D-Dimer ABG pH ABG pO2 ABG HCO3 ABG O2 Saturation Oxyhemoglobin Sodium 134 L Potassium Chloride Carbon Dioxide 21 L Creatinine 0.5 L Glucose 123 H POC Glucose Calcium 7.6 L Ferritin Lactate Dehydrogenase NT-Pro-B Natriuret Pep 464.5 H Albumin 02/12/20 02/14/20 02/14/20 05:00 00:05 Unknown WBC RDW Plt Count Lymph % (Auto) [place] % (Auto) Lymph # [place] # Seg Neutrophils % Monocytes % (Manual) Eosinophils % (Manual) Seg Neutrophils # Lymphocytes # (Manual) D-Dimer ABG pH ABG pO2 58.4 L ABG HCO3 ABG O2 Saturation 91.9 L Oxyhemoglobin 90.2 L Sodium 135 L Potassium 3.5 L Chloride Carbon Dioxide Creatinine 0.5 L Glucose 140 H POC Glucose 119 H Calcium 7.9 L Ferritin Lactate Dehydrogenase NT-Pro-B Natriuret Pep Albumin 02/18/20 02/24/20 02/24/20 11:25 05:28 05:28 WBC RDW 12.9 L Plt Count 580 H Lymph % (Auto) [place] % (Auto) 12.2 H Lymph # [place] # 0.9 H Seg Neutrophils % Monocytes % (Manual) 11.0 H Eosinophils % (Manual) 6.0 H Seg Neutrophils # Lymphocytes # (Manual) 0.9 L D-Dimer ABG pH ABG pO2 50.6 L ABG HCO3 26.8 H ABG O2 Saturation 88.0 L Oxyhemoglobin 86.3 L Sodium 136 L Potassium Chloride Carbon Dioxide Creatinine 0.7 L Glucose POC Glucose Calcium Ferritin Lactate Dehydrogenase NT-Pro-B Natriuret Pep Albumin 02/24/20 02/25/20 02/25/20 16:00 20:09 20:09 WBC RDW Plt Count Lymph % (Auto) [place] % (Auto) Lymph # [place] # Seg Neutrophils % Monocytes % (Manual) Eosinophils % (Manual) Seg Neutrophils # Lymphocytes # (Manual) D-Dimer 352.03 H ABG pH ABG pO2 48.0 L ABG HCO3 ABG O2 Saturation 85.4 L Oxyhemoglobin 83.8 L Sodium Potassium Chloride Carbon Dioxide Creatinine Glucose POC Glucose Calcium Ferritin 626.7 H Lactate Dehydrogenase NT-Pro-B Natriuret Pep Albumin 02/25/20 20:09 WBC RDW Plt Count Lymph % (Auto) [place] % (Auto) Lymph # [place] # Seg Neutrophils % Monocytes % (Manual) Eosinophils % (Manual) Seg Neutrophils # Lymphocytes # (Manual) D-Dimer ABG pH ABG pO2 ABG HCO3 ABG O2 Saturation Oxyhemoglobin Sodium Potassium Chloride Carbon Dioxide Creatinine Glucose POC Glucose Calcium Ferritin Lactate Dehydrogenase 310 H NT-Pro-B Natriuret Pep Albumin Allied health notes reviewed: nursing
--- NOTE | 2020-02-26 16:42 | Progress Note ---
Assessment and Plan Assessment and plan: 44-year-old male with no medical problem comes emergency room with complaints of shortness of breath, cough, chills, fever. He was seen in the urgent care and was diagnosed with sinusitis, his symptoms continue without any improvement, he returned to the urgent care and was sent to the diagnosed with bronchitis. Patient was given amoxicillin, steroids and fluticasone with cough medications 2 days ago, symptoms have not improved so he came to the emergency room for further evaluation. Patient will be admitted for pneumonia * Continues with profound hypoxemia. We will continue oxygen and wean as tolerated. Obtain inflammatory markers and follow. * Repeat studies in AM. Discussed with ID, per CDC guideline patient needs to be on isolation till 7 days after symptoms resolved. Will further discuss with ID about discharge considering Family and children status. No need for retesting. Discussed with the spouse extensively /Bilateral pneumonia with COVID 19 presented with Fever,cough,shortness of breath, tachycardia, tachypnea Started Plaquenil 400mg q12h for 2 doses to be followed by 200mg q12h for 12 doses. Consulted ID, Department of Health notified, Cont droplet precaution /Sepsis due to b/l PNA with COVID 19 - ID following, cont Plaquenil 400mg q12h for 2 doses to be followed by 200mg q12h for 12 doses. /Acute hypoxic resp failure On supplemental oxygen via VM now down to nasal cannula Pulmonology following, nebs as needed wean off O2 as tolerated /Hyponatremia, stable /Dvt Px, scd and lovenox 02/09 Still having cough, fever. Swab specimen sent 02/08. awaiting result. 02/10 Still shortness of breath fever. On VM 50% with Fi02 50%. To f/u result of COVID test with Dept of health. 02/11 On VM 50% with Fi02 50%. To f/u result of COVID test with Dept of health. not medically stable for d/c. updated by phone 02/12 On VM 50% with Fi02 50% - unable to wean. To f/u result of COVID test with Dept of health. not medically stable for d/c. 02/13 Patient On VM 50% with Fi02 50% - unable to wean. To f/u result of COVID test with Dept of health. not medically stable for d/c. 02/14 Test result came positive for COVID 19, started on Plaquenil 02/15 continue Plaquenil and wean off from O2 as tolerated 02/16 continue Plaquenil and wean off from O2 as tolerated 02/17 called his - who is very panic and frustrated. Explained that COVID 19 has no cure discovered, plaquenil has been initiated. also advised for all family members to get tested 02/18 remains on 50% FiO2, unable to wean off, [facility] will not accept until COVID 19 is negative 02/19 remains on 50% FiO2, unable to wean off 02/20 remains on 50% FiO2, unable to wean off History Interval history: Patient seen and examined resting comfortably no acute distress at this time reports improvement although still hypoxic at baseline requiring 4 L of oxygen. On ambulation today, patient still hypoxic on room air but with oxygen at 4 liters, 89-90%. Will repeat in AM Hospitalist Physical - Physical exam Narrative exam: VITAL SIGNS: Reviewed. GENERAL: The patient appears normally developed, Vital signs as documented. HEAD: No signs of head trauma. EYES: Pupils are equal. Extraocular motions intact. EARS: Hearing grossly intact. MOUTH: Oropharynx is normal. NECK: No adenopathy, no JVD. CHEST: Chest with fine crackles breath sounds bilaterally. No wheezes, rales, or rhonchi. CARDIAC: Regular rate and rhythm. S1 and S2, without murmurs, gallops, or rubs. VASCULAR: No Edema. Peripheral pulses normal and equal in all extremities. ABDOMEN: Soft, non tender and non distended. No rebound or guarding, and no masses palpated. Bowel Sounds normal. MUSCULOSKELETAL: Good range of motion of all major joints. Extremities without clubbing, cyanosis or edema. NEUROLOGIC EXAM: Alert and oriented x 3 No focal sensory or strength deficits. Speech normal. Follows commands. PSYCHIATRIC: Mood normal. SKIN: detial exam as documented in skin assessment - Constitutional Vitals: Temp Pulse Resp BP Pulse Ox 98.5 F 82 20 100/59 92 02/26/20 11:47 02/26/20 11:47 02/26/20 11:47 02/26/20 11:47 02/26/20 11:47 General appearance: Present: no acute distress, well-nourished Results - Labs CBC & Chem 7: 02/24/20 05:28 02/24/20 05:28 Labs: Laboratory Last Values WBC 6.5 K/mm3 (4.5-11.0) 02/24/20 05:28 RBC 4.32 M/mm3 (3.65-5.03) 02/24/20 05:28 Hgb 13.3 gm/dl (11.8-15.2) 02/24/20 05:28 Hct 39.3 % (35.5-45.6) 02/24/20 05:28 MCV 91 fl (84-94) 02/24/20 05:28 MCH 31 pg (28-32) 02/24/20 05:28 MCHC 34 % (32-34) 02/24/20 05:28 RDW 12.9 % (13.2-15.2) L 02/24/20 05:28 Plt Count 580 K/mm3 (140-440) H 02/24/20 05:28 Lymph % (Auto) 9.7 % (13.4-35.0) L 02/09/20 04:06 [place] % (Auto) 12.2 % (0.0-7.3) H 02/24/20 05:28 Eos % (Auto) 2.4 % (0.0-4.3) 02/24/20 05:28 Baso % (Auto) 0.1 % (0.0-1.8) 02/09/20 04:06 Lymph # 1.0 K/mm3 (1.2-5.4) L 02/09/20 04:06 [place] # 0.9 K/mm3 (0.0-0.8) H 02/24/20 05:28 Eos # 0.2 K/mm3 (0.0-0.4) 02/24/20 05:28 Baso # 0.1 K/mm3 (0.0-0.1) 02/24/20 05:28 Add Manual Diff Complete 02/24/20 05:28 Total Counted 100 02/24/20 05:28 Seg Neutrophils % 62.7 % (40.0-70.0) 02/24/20 05:28 Seg Neuts % (Manual) 63.0 % (40.0-70.0) 02/24/20 05:28 Band Neutrophils % 0 % 02/24/20 05:28 Lymphocytes % (Manual) 14.0 % (13.4-35.0) 02/24/20 05:28 Reactive Lymphs % (Man) 2.0 % 02/24/20 05:28 Monocytes % (Manual) 11.0 % (0.0-7.3) H 02/24/20 05:28 Eosinophils % (Manual) 6.0 % (0.0-4.3) H 02/24/20 05:28 Basophils % (Manual) 1.0 % (0.0-1.8) 02/24/20 05:28 Metamyelocytes % 2.0 % 02/24/20 05:28 Myelocytes % 1.0 % 02/24/20 05:28 Promyelocytes % 0 % 02/24/20 05:28 Blast Cells % 0 % 02/24/20 05:28 Nucleated RBC % Not Reportable 02/24/20 05:28 Seg Neutrophils # 4.5 K/mm3 (1.8-7.7) 02/24/20 05:28 Seg Neutrophils # Man 4.1 K/mm3 (1.8-7.7) 02/24/20 05:28 Band Neutrophils # 0.0 K/mm3 02/24/20 05:28 Lymphocytes # (Manual) 0.9 K/mm3 (1.2-5.4) L 02/24/20 05:28 Abs React Lymphs (Man) 0.1 K/mm3 02/24/20 05:28 Monocytes # (Manual) 0.7 K/mm3 (0.0-0.8) 02/24/20 05:28 Eosinophils # (Manual) 0.4 K/mm3 (0.0-0.4) 02/24/20 05:28 Basophils # (Manual) 0.1 K/mm3 (0.0-0.1) 02/24/20 05:28 Metamyelocytes # 0.1 K/mm3 02/24/20 05:28 Myelocytes # 0.1 K/mm3 02/24/20 05:28 Promyelocytes # 0.0 K/mm3 02/24/20 05:28 Blast Cells # 0.0 K/mm3 02/24/20 05:28 WBC Morphology Not Reportable 02/24/20 05:28 Hypersegmented Neuts Not Reportable 02/24/20 05:28 Hyposegmented Neuts Not Reportable 02/24/20 05:28 Hypogranular Neuts Not Reportable 02/24/20 05:28 Smudge Cells Not Reportable 02/24/20 05:28 Toxic Granulation Not Reportable 02/24/20 05:28 Toxic Vacuolation Not Reportable 02/24/20 05:28 Dohle Bodies Not Reportable 02/24/20 05:28 Pelger-Huet Anomaly Not Reportable 02/24/20 05:28 [place] Rods Not Reportable 02/24/20 05:28 Platelet Estimate Consistent w auto 02/24/20 05:28 Clumped Platelets Not Reportable 02/24/20 05:28 Plt Clumps, EDTA Not Reportable 02/24/20 05:28 Large Platelets Not Reportable 02/24/20 05:28 Giant Platelets Not Reportable 02/24/20 05:28 Platelet Satelliting Not Reportable 02/24/20 05:28 Plt Morphology Comment Not Reportable 02/24/20 05:28 RBC Morphology Normal 02/24/20 05:28 Dimorphic RBCs Not Reportable 02/24/20 05:28 Polychromasia Not Reportable 02/24/20 05:28 Hypochromasia Not Reportable 02/24/20 05:28 Poikilocytosis Not Reportable 02/24/20 05:28 Anisocytosis Not Reportable 02/24/20 05:28 Microcytosis Not Reportable 02/24/20 05:28 Macrocytosis Not Reportable 02/24/20 05:28 Spherocytes Not Reportable 02/24/20 05:28 Pappenheimer Bodies Not Reportable 02/24/20 05:28 Sickle Cells Not Reportable 02/24/20 05:28 Target Cells Not Reportable 02/24/20 05:28 Tear Drop Cells Not Reportable 02/24/20 05:28 Ovalocytes Not Reportable 02/24/20 05:28 Helmet Cells Not Reportable 02/24/20 05:28 [place] Bodies Not Reportable 02/24/20 05:28 [place] Rings Not Reportable 02/24/20 05:28 [place] Cells Not Reportable 02/24/20 05:28 Bite Cells Not Reportable 02/24/20 05:28 Crenated Cell Not Reportable 02/24/20 05:28 Elliptocytes Not Reportable 02/24/20 05:28 Acanthocytes (Spur) Not Reportable 02/24/20 05:28 Rouleaux Not Reportable 02/24/20 05:28 Hemoglobin C Crystals Not Reportable 02/24/20 05:28 Schistocytes Not Reportable 02/24/20 05:28 Malaria parasites Not Reportable 02/24/20 05:28 Juan Bodies Not Reportable 02/24/20 05:28 Hem Pathologist Commnt No 02/24/20 05:28 D-Dimer 352.03 ng/mlDDU (0-234) H 02/25/20 20:09 ABG pH 7.424 pH Units (7.350-7.450) 02/24/20 16:00 ABG pCO2 39.9 mm Hg 02/24/20 16:00 ABG pO2 48.0 mm Hg (80.0-90.0) L 02/24/20 16:00 ABG HCO3 25.6 mmol/L (20.0-26.0) 02/24/20 16:00 ABG O2 Saturation 85.4 % (95.0-99.0) L 02/24/20 16:00 ABG O2 Content 17.7 (0.0-44) 02/24/20 16:00 ABG Base Excess 1.1 mmol/L (-2.0-3.0) 02/24/20 16:00 ABG Hemoglobin 15.1 gm/dl (14.0-18.0) 02/24/20 16:00 ABG Carboxyhemoglobin 1.2 % (0.0-5.0) 02/24/20 16:00 ABG Methemoglobin 0.6 % (0.0-1.5) 02/24/20 16:00 Oxyhemoglobin 83.8 % (95.0-99.0) L 02/24/20 16:00 FiO2 21 % 02/24/20 16:00 Sodium 136 mmol/L (137-145) L 02/24/20 05:28 Potassium 4.1 mmol/L (3.6-5.0) 02/24/20 05:28 Chloride 98.6 mmol/L (98-107) 02/24/20 05:28 Carbon Dioxide 23 mmol/L (22-30) 02/24/20 05:28 Anion Gap 19 mmol/L 02/24/20 05:28 BUN 12 mg/dL (9-20) 02/24/20 05:28 Creatinine 0.7 mg/dL (0.8-1.5) L 02/24/20 05:28 Estimated GFR > 60 ml/min 02/24/20 05:28 BUN/Creatinine Ratio 17 % 02/24/20 05:28 Glucose 92 mg/dL (75-100) 02/24/20 05:28 POC Glucose 119 (70-105) H 02/14/20 00:05 Lactic Acid 1.10 mmol/L (0.7-2.0) 02/08/20 18:49 Calcium 9.2 mg/dL (8.4-10.2) 02/24/20 05:28 Ferritin 626.7 ng/mL (13.0-400.0) H 02/25/20 20:09 Total Bilirubin 0.60 mg/dL (0.1-1.2) 02/08/20 18:49 AST 39 units/L (5-40) 02/08/20 18:49 ALT 49 units/L (7-56) 02/08/20 18:49 Alkaline Phosphatase 72 units/L (35-129) 02/08/20 18:49 Lactate Dehydrogenase 310 units/L (91-180) H 02/25/20 20:09 Troponin T < 0.010 ng/mL (0.00-0.029) 02/13/20 19:32 C-Reactive Protein 0.60 mg/dL (0.00-1.30) 02/25/20 20:09 NT-Pro-B Natriuret Pep 464.5 pg/mL (0-450) H 02/11/20 14:33 Total Protein 7.2 g/dL (6.3-8.2) 02/08/20 18:49 Albumin 3.8 g/dL (3.9-5) L 02/08/20 18:49 Albumin/Globulin Ratio 1.1 % 02/08/20 18:49 Procalcitonin < 0.05 ng/mL (<0.15) 02/25/20 20:09 Influenza A (Rapid) Negative (Negative) 02/08/20 Unknown Influenza B (Rapid) Negative (Negative) 02/08/20 Unknown Lee/IV: Voiding Method Toilet IV Catheter Type [Left Forearm INT / Saline Lock ] IV Catheter Type [Left Hand] INT / Saline Lock IV Catheter Type [Right INT / Saline Lock Forearm] IV Catheter Type [Left INT / Saline Lock Antecubital] Active Medications - Current Medications Current Medications: Generic Name Dose Route Start Last Admin Trade Name Freq PRN Reason Stop Dose Admin Acetaminophen 650 mg 02/08/20 23:06 02/10/20 00:29 Tylenol PO 650 mg Q4H PRN Administration Pain MILD(1-3)/Fever >100.5/ULLOA Albuterol 2.5 mg 02/12/20 03:22 Proventil IH Q4HRT PRN Shortness Of Breath Diphenhydramine HCl 25 mg 02/10/20 12:49 02/21/20 12:15 Benadryl PO 25 mg Q8H PRN Administration Itching Diphenhydramine HCl 25 mg 02/10/20 12:50 02/15/20 00:23 Benadryl IV 25 mg Q6H PRN Administration Itching Enoxaparin Sodium 40 mg 02/09/20 10:00 02/26/20 10:44 Enoxaparin SUB-Q 40 mg QDAY@1000 YAMILA Administration Famotidine 20 mg 02/12/20 10:00 02/26/20 10:44 Pepcid PO 20 mg QDAY YAMILA Administration Guaifenesin 600 mg 02/16/20 22:00 02/26/20 10:44 Mucinex Er PO 600 mg BID YAMILA Administration Ondansetron HCl 4 mg 02/08/20 23:06 Zofran IV Q8H PRN Nausea And Vomiting Oxycodone/Acetaminophen 1 tab 02/08/20 23:06 02/20/20 22:54 Percocet 5/325 PO 1 tab Q6H PRN Administration Pain, Moderate (4-6) Sodium Chloride 10 ml 02/09/20 10:00 02/26/20 10:44 Sodium Chloride Flush Syringe 10 Ml IV 10 ml BID YAMILA Administration Sodium Chloride 10 ml 02/08/20 23:06 Sodium Chloride Flush Syringe 10 Ml IV PRN PRN LINE FLUSH Nutrition/Malnutrition Assess - Dietary Evaluation Nutrition/Malnutrition Findings: Nutrition Notes Start: 02/15/20 13:46 Freq: Status: Active Protocol: Document 02/15/20 13:46 LM (Rec: 02/15/20 13:47 LM [email or web address]) Nutrition Notes Need for Assessment generated from: LOS Initial or Follow up Brief Note Subjective/Other Information Screen for LOS. Pt stated he is eating well with no wt loss . Nutrition Intervention Revisit per MD consult or patient Sign Off request:
[2020-02-27] MEDS: guaiFENesin ER 600 MG TAB PO SCH (10:22)
[2020-02-27] MEDS: FAMOTIDINE 20 MG TAB PO SCH (10:22)
[2020-02-27] MEDS: ENOXAPARIN 40 MG/0.4 ML INJ SUB-Q SCH (10:22)
--- NOTE | 2020-02-27 14:19 | Progress Note ---
Assessment and Plan Acute hypoxemic respiratory failure. Community-acquired pneumonia. Febrile illness COVID-19 infection Mild hyponatremia. Hyperglycemia - no new issues, continue care as below - prn ABG's at this point - continue airborne droplet and contact precautions - continue supportive care - clinically looks better (tentatively discharge to self quarantine once FiO2 </= 32%) - COVID-19 result positive - avoid BIPAP if does not decompensate re: Aerosolization risk - continue to wean supplemental oxygen to keep O2 sats > 90% (on 50% Venti-mask) - continue MDI Bronchodilators (CHELLY) with pulm hygiene per RT - repeat CXR prn - completed empiric CAP antibiotics - prn analgesia per pain score - continue mobility protocols to prevent pressure ulcers - PT/OT as tolerated - accuchecks with glycemic control per SSI for target blood glucose < 180 mg/dL - home oxygen evaluation at discharge - GI & VTE prophylaxis - Flu & pneumovax per protocol - Pulmonary out patient follow up post discharge - continue other care per attending / other consultants - watch closely ... re-evaluate in am & prn PROGNOSIS: GUARDED Subjective Date of service: 02/27/20 Principal diagnosis: Ac hypoxemic resp failure; PNA (CAP); Febrile illness r/o COVID-19 Interval history: Patient is seen today for: Acute hypoxemic respiratory failure; Pneumonia (CAP); Febrile illness r/o COVID-19; Mild hyponatremia; Hyperglycemia. Seen and examined at bedside; 24hour events reviewed; nursing and respiratory care staff consulted; no adverse overnight events reported to me; resting in bed; Objective Vital Signs - 12hr 02/27/20 02/27/20 02/27/20 05:58 07:49 10:00 Temperature 98.3 F Pulse Rate 79 Respiratory 18 22 Rate Blood Pressure 98/65 O2 Sat by Pulse 94 94 86 Oximetry 02/27/20 02/27/20 02/27/20 10:48 11:00 11:19 Temperature 97.7 F Pulse Rate 78 Respiratory 22 20 Rate Blood Pressure 93/61 O2 Sat by Pulse 91 93 94 Oximetry Constitutional: alert, other (middle aged male, normocephalic with mildly increased respiratory effort at rest no more conversational dyspnea) Eyes: non-icteric ENT: oropharynx moist Neck: supple, no lymphadenopathy, no JVD Effort: mildly labored Ascultation: Bilateral: rales (bases posterior), rhonchi Percussion: Bilateral: not dull Cardiovascular: regular rate and rhythm Gastrointestinal: normoactive bowel sounds, soft, non-tender, non-distended Integumentary: normal Extremities: no cyanosis, no edema, pulses normal, no ischemia or petechiae Neurologic: normal mental status, non-focal exam, pupils equal and round, motor strength normal and Psychiatric: mood appropriate, affect normal CBC and BMP: 02/24/20 05:28 02/24/20 05:28 ABG, PT/INR, D-dimer: ABG ABG pH 7.424 pH Units (7.350-7.450) 02/24/20 16:00 ABG pCO2 39.9 mm Hg 02/24/20 16:00 ABG pO2 48.0 mm Hg (80.0-90.0) L 02/24/20 16:00 ABG O2 Saturation 85.4 % (95.0-99.0) L 02/24/20 16:00 PT/INR, D-dimer D-Dimer 352.03 ng/mlDDU (0-234) H 02/25/20 20:09 Abnormal lab findings: Abnormal Labs 02/08/20 02/08/20 02/08/20 18:49 18:49 19:44 WBC RDW 12.7 L Plt Count Lymph % (Auto) 6.1 L Winston % (Auto) Lymph # 0.6 L Winston # Seg Neutrophils % 88.7 H Monocytes % (Manual) Eosinophils % (Manual) Seg Neutrophils # 9.3 H Lymphocytes # (Manual) D-Dimer ABG pH 7.470 H ABG pO2 52.7 L ABG HCO3 ABG O2 Saturation 90.1 L Oxyhemoglobin 88.1 L Sodium 130 L Potassium Chloride 93.9 L Carbon Dioxide Creatinine 0.7 L Glucose 133 H POC Glucose Calcium 8.2 L Ferritin Lactate Dehydrogenase NT-Pro-B Natriuret Pep Albumin 3.8 L 02/09/20 02/09/20 02/10/20 04:06 04:06 Unknown WBC 13.7 H RDW 12.6 L 12.7 L Plt Count Lymph % (Auto) 9.7 L Winston % (Auto) Lymph # 1.0 L Winston # Seg Neutrophils % 85.5 H Monocytes % (Manual) Eosinophils % (Manual) Seg Neutrophils # 8.5 H Lymphocytes # (Manual) D-Dimer ABG pH ABG pO2 ABG HCO3 ABG O2 Saturation Oxyhemoglobin Sodium 134 L Potassium Chloride Carbon Dioxide 21 L Creatinine Glucose 151 H POC Glucose Calcium 7.5 L Ferritin Lactate Dehydrogenase NT-Pro-B Natriuret Pep Albumin 02/10/20 02/11/20 02/12/20 Unknown 14:33 05:00 WBC RDW 12.4 L Plt Count Lymph % (Auto) Winston % (Auto) Lymph # Winston # Seg Neutrophils % Monocytes % (Manual) Eosinophils % (Manual) Seg Neutrophils # Lymphocytes # (Manual) D-Dimer ABG pH ABG pO2 ABG HCO3 ABG O2 Saturation Oxyhemoglobin Sodium 134 L Potassium Chloride Carbon Dioxide 21 L Creatinine 0.5 L Glucose 123 H POC Glucose Calcium 7.6 L Ferritin Lactate Dehydrogenase NT-Pro-B Natriuret Pep 464.5 H Albumin 02/12/20 02/14/20 02/14/20 05:00 00:05 Unknown WBC RDW Plt Count Lymph % (Auto) Winston % (Auto) Lymph # Winston # Seg Neutrophils % Monocytes % (Manual) Eosinophils % (Manual) Seg Neutrophils # Lymphocytes # (Manual) D-Dimer ABG pH ABG pO2 58.4 L ABG HCO3 ABG O2 Saturation 91.9 L Oxyhemoglobin 90.2 L Sodium 135 L Potassium 3.5 L Chloride Carbon Dioxide Creatinine 0.5 L Glucose 140 H POC Glucose 119 H Calcium 7.9 L Ferritin Lactate Dehydrogenase NT-Pro-B Natriuret Pep Albumin 02/18/20 02/24/20 02/24/20 11:25 05:28 05:28 WBC RDW 12.9 L Plt Count 580 H Lymph % (Auto) Winston % (Auto) 12.2 H Lymph # Winston # 0.9 H Seg Neutrophils % Monocytes % (Manual) 11.0 H Eosinophils % (Manual) 6.0 H Seg Neutrophils # Lymphocytes # (Manual) 0.9 L D-Dimer ABG pH ABG pO2 50.6 L ABG HCO3 26.8 H ABG O2 Saturation 88.0 L Oxyhemoglobin 86.3 L Sodium 136 L Potassium Chloride Carbon Dioxide Creatinine 0.7 L Glucose POC Glucose Calcium Ferritin Lactate Dehydrogenase NT-Pro-B Natriuret Pep Albumin 02/24/20 02/25/20 02/25/20 16:00 20:09 20:09 WBC RDW Plt Count Lymph % (Auto) Winston % (Auto) Lymph # Winston # Seg Neutrophils % Monocytes % (Manual) Eosinophils % (Manual) Seg Neutrophils # Lymphocytes # (Manual) D-Dimer 352.03 H ABG pH ABG pO2 48.0 L ABG HCO3 ABG O2 Saturation 85.4 L Oxyhemoglobin 83.8 L Sodium Potassium Chloride Carbon Dioxide Creatinine Glucose POC Glucose Calcium Ferritin 626.7 H Lactate Dehydrogenase NT-Pro-B Natriuret Pep Albumin 02/25/20 20:09 WBC RDW Plt Count Lymph % (Auto) Winston % (Auto) Lymph # Winston # Seg Neutrophils % Monocytes % (Manual) Eosinophils % (Manual) Seg Neutrophils # Lymphocytes # (Manual) D-Dimer ABG pH ABG pO2 ABG HCO3 ABG O2 Saturation Oxyhemoglobin Sodium Potassium Chloride Carbon Dioxide Creatinine Glucose POC Glucose Calcium Ferritin Lactate Dehydrogenase 310 H NT-Pro-B Natriuret Pep Albumin Allied health notes reviewed: nursing
--- NOTE | 2020-02-27 14:29 | Discharge Summary ---
Providers - Providers Date of Admission: 02/08/20 23:06 Attending physician: ZOYA NGUYỄN MD 02/08/20 23:06 Consult to Physician [CONS] Routine Comment: Consulting Provider: MAXIMILIAN WHARTON Physician Instructions: Reason For Exam: pna 02/09/20 17:33 Consult to Physician [CONS] Routine Comment: Consulting Provider: MARYCRUZ GORDON Physician Instructions: Reason For Exam: acute resp failure,pneumonia, r/o Covid 19 02/26/20 14:00 Consult to Case Management [CONS] Routine Services Needed at Discharge: Home O2 Notified:: GLADIS Additional Physician Instructions: 3 Liter NC at rest and with activity Primary care physician: IT ACCOUNT MANAGER Hospitalization Reason for admission: covid 19 pna Condition: Stable Hospital course: 44-year-old male with no medical problem comes emergency room with complaints of shortness of breath, cough, chills, fever. He was seen in the urgent care and was diagnosed with sinusitis, his symptoms continue without any improvement, he returned to the urgent care and was sent to the diagnosed with bronchitis. Patient was given amoxicillin, steroids and fluticasone with cough medications 2 days ago, symptoms have not improved so he came to the emergency room for further evaluation. Patient will be admitted for pneumonia * Continues with profound hypoxemia. We will continue oxygen and wean as tolerated. Obtain inflammatory markers and follow. * Repeat studies in AM. Discussed with ID, per CDC guideline patient needs to be on isolation till 7 days after symptoms resolved. Will further discuss with ID about discharge considering Family and children status. No need for retesting. Discussed with the spouse extensively * Patient oxygenation improved, he still needed 4 liters of oxygen with exertion. He is to stay home from work until cleared by PCP. also follow the recommended protocol of self isolation until the symptoms resolves as the virus shadding can take up to 21 days. /Bilateral pneumonia with COVID 19 presented with Fever,cough,shortness of breath, tachycardia, tachypnea Started Plaquenil 400mg q12h for 2 doses to be followed by 200mg q12h for 12 doses. Consulted ID, Department of Health notified, Cont droplet precaution /Sepsis due to b/l PNA with COVID 19 - ID following, cont Plaquenil 400mg q12h for 2 doses to be followed by 200mg q12h for 12 doses. /Acute hypoxic resp failure On supplemental oxygen via VM now down to nasal cannula Pulmonology following, nebs as needed wean off O2 as tolerated /Hyponatremia, stable /Dvt Px, scd and lovenox 02/09 Still having cough, fever. Swab specimen sent 02/08. awaiting result. 02/10 Still shortness of breath fever. On VM 50% with Fi02 50%. To f/u result of COVID test with Dept of health. 02/11 On VM 50% with Fi02 50%. To f/u result of COVID test with Dept of health. not medically stable for d/c. updated by phone 02/12 On VM 50% with Fi02 50% - unable to wean. To f/u result of COVID test with Dept of health. not medically stable for d/c. 02/13 Patient On VM 50% with Fi02 50% - unable to wean. [facility] for [facility]. 02/14 Test result came positive for COVID 19, started on Plaquenil 02/15 continue Plaquenil and wean off from O2 as tolerated 02/16 continue Plaquenil and wean off from O2 as tolerated 02/17 called his - who is very panic and frustrated. Explained that COVID 19 has no cure discovered, plaquenil has been initiated. also advised for all family members to get tested 02/18 remains on 50% FiO2, unable to wean off, [facility] will not accept until COVID 19 is negative 02/19 remains on 50% FiO2, unable to wean off 02/20 remains on 50% FiO2, unable to wean off Disposition: [id number] HOME UNDER HOME [facility] Time spent for discharge: 35 mins Core Measure Documentation - Palliative Care Palliative Care/ Comfort Measures: Not Applicable - Core Measures Any of the following diagnoses?: none Exam - Physical Exam Narrative exam: VITAL SIGNS: Reviewed. GENERAL: The patient appears normally developed, Vital signs as documented. HEAD: No signs of head trauma. EYES: Pupils are equal. Extraocular motions intact. EARS: Hearing grossly intact. MOUTH: Oropharynx is normal. NECK: No adenopathy, no JVD. CHEST: Chest with fine crackles breath sounds bilaterally. No wheezes, rales, or rhonchi. CARDIAC: Regular rate and rhythm. S1 and S2, without murmurs, gallops, or rubs. VASCULAR: No Edema. Peripheral pulses normal and equal in all extremities. ABDOMEN: Soft, non tender and non distended. No rebound or guarding, and no masses palpated. Bowel Sounds normal. MUSCULOSKELETAL: Good range of motion of all major joints. Extremities without clubbing, cyanosis or edema. NEUROLOGIC EXAM: Alert and oriented x 3 No focal sensory or strength deficits. Speech normal. Follows commands. PSYCHIATRIC: Mood normal. SKIN: detial exam as documented in skin assessment - Constitutional Vitals: Temp Pulse Resp BP Pulse Ox 97.7 F 78 20 93/61 94 02/27/20 11:19 02/27/20 11:19 02/27/20 11:19 02/27/20 11:19 02/27/20 11:19 Plan Activity: advance as tolerated, fall precautions Diet: low fat Special Instructions: home oxygen via (Oxygen via nasal cannula at 4 to 6 L) Additional Instructions: Must self quaratine at home unless the test result for Covid 19 (Coronavirus) comes back negative then you can stop the self quaratine. If you must leave home, you are required to wear a Mask at all times. When at home to prevent Infecting family members you must wear a MASK Follow up with: NIKOLAS FRANKLIN MD [Staff Physician] - 7 Days PRIMARY CAREMD [Primary Care Provider] - 7 Days HANNY HERNANDEZ MD [Staff Physician] - 10 Days [facility] MD KATHY [Referring] - 7 Days Prescriptions: Albuterol INH(or & Nicu Only) [ProAir HFA Inhaler] 2 puff IH QID PRN #8.5 gram PRN Reason: Shortness Of Breath
[2020-02-27 18:16] VITALS: BP 100/67
== END 2020-02-27 19:45 | disposition home or self-care (01) | DRG 177 ==
LOC: ED 18:02 → 3A 23:06 → UNDODISIN 02-14 18:45
PROVIDERS: ADMIT Internal Medicine; ATTEND Internal Medicine
PROC: 4A033R1 Measurement of Arterial Saturation, Peripheral, Percutaneous Approach (ICD-10-PCS; principal; 2020-02-18)
DX: U07.1 COVID-19 (principal); A41.89 Other specified sepsis; J12.89 Other viral pneumonia; J96.01 Acute respiratory failure with hypoxia; E87.1 Hypo-osmolality and hyponatremia; B97.29 Other coronavirus as the cause of diseases classified elsewhere; R73.9 Hyperglycemia, unspecified
CPT/HCPCS: 36415; 36600; 71045; 80048; 80053; 82140; 82728; 82803; 82962; 83615; 83880; 84145; 84484; 85007; 85025; 85027; 85379; 86140; 87040; 87400; 94640; 94760; 96365; 96375; G0378; J0456; J0696; J1200; J1650; J2405; J3010; J7030; J7050